=== PATIENT | female | born 1975 | race African-American/Black ===

== ENCOUNTER → 2018-09-14 | Day surgery (SDC) | payer OTHER ==
[2018-09-09 14:44] LABS: BASOPHILS # (AUTO) 0.1 (0.0-0.1); BASOPHILS % 0.5 % (0.0-1.0); EOSINOPHILS # (AUTO) 0.2 (0.0-0.4); EOSINOPHILS % 1.6 % (0.0-6.0); HEMATOCRIT 34.4 % (34.2-44.1); HEMOGLOBIN 11.4 g/dL (12.0-16.0); LYMPHOCYTES # (AUTO) 2.2 (1.0-3.2); LYMPHOCYTES % 20.9 % (18.0-39.1); MEAN CORPUSCULAR HEMOGLOBIN 28.6 pg (28-32); MEAN CORPUSCULAR HGB CONC 33.1 g/dL (31-35); MEAN CORPUSCULAR VOLUME 86.4 fL (81-99); MONOCYTES # (AUTO) 0.5 (0.2-0.8); MONOCYTES % 4.9 % (4.4-11.3); NEUTROPHILS # (AUTO) 7.4 (2.1-6.9); NEUTROPHILS % 71.7 % (38.7-80.0); PLATELET COUNT 441 x10e3/uL (140-360); RED BLOOD COUNT 3.98 x10e6/uL (3.6-5.1); RED CELL DISTRIBUTION WIDTH 15.1 % (11.7-14.4)
[2018-09-09 14:46] LABS: BILIRUBIN,URINE NEGATIVE (NEGATIVE); CLARITY,URINE SL CLOUDY (CLEAR); COLOR,URINE YELLOW (YELLOW); KETONES,URINE NEGATIVE (NEGATIVE); LEUKOCYTE ESTERASE ,URINE TRACE (NEGATIVE); NITRITE,URINE NEGATIVE (NEGATIVE); PROTEIN,URINE DIPSTICK NEGATIVE (NEGATIVE); URINE UROBILINOGEN 0.2 mg/dL (0.2 - 1)
[2018-09-09 14:54] LABS: INR 0.92; PROTHROMBIN TIME 12.8 seconds (11.9-14.5)
[2018-09-09 14:55] LABS: PARTIAL THROMBOPLASTIN TIME 37.1 seconds (23.8-35.5)
[2018-09-09 14:59] LABS: ANION GAP 14.7 mmol/L (8-16); BLOOD UREA NITROGEN 8 mg/dL (7-26); BUN/CREATININE RATIO 11 (6-25); CALCIUM 10.6 mg/dL (8.4-10.2); CARBON DIOXIDE 23 mmol/L (22-29); CHLORIDE 100 mmol/L (98-107); CREATININE, SERUM 0.75 mg/dL (0.57-1.11); EST GLOMERULAR FILTRATION RATE > 60 ML/MIN (60-); GLUCOSE 83 mg/dL (74-118); POTASSIUM 3.7 mmol/L (3.5-5.1); SODIUM 134 mmol/L (136-145)
--- NOTE | 2018-09-09 15:24 | Diagnostic Imaging Report ---
EXAM: CHEST 2 VIEWS, PA and lateral DATE: 09/09/2018 Time stamp on exam: 2:14 PM INDICATION: Preoperative for foot surgery COMPARISON: None FINDINGS: LINES/TUBES: None LUNGS: No consolidations or edema. PLEURA: No effusions or pneumothorax. HEART AND MEDIASTINUM: Normal size and contour. BONES AND SOFT TISSUES: No acute findings. There are bilateral cervical ribs. IMPRESSION: No acute thoracic abnormality. Signed by: Dr. Rommel Garcia DO on 09/09/2018 3:21 PM
[~2018-09-14] MED LIST: BENZONATE; BUPIVACAINE HCL 0.5% INJ 30 ML VIAL INJ ONE; CEFAZOLIN SOD 2 GM/D5W 50ML 50 ML IV ONE; CETIRIZINE HCL10 M1 PO; CYCLOBENZAPRINE10 MG PO; DEXAMETHASONE SOD PHOS INJ 4 MG/ML VIAL ONE; FENTANYL CITRATE/PF 100MCG/2 ML INJ ONE; GABAPENTIN100 MG; HYDROCHLOROTHIA25 MG; HYDROXYZINE HCL25 MG PO; IRON325 M1 PO; LIDOCAINE HCL 1% 30ML-PF VIAL ONE; LIDOCAINE HCL 2% LOCAL INJ 5 ML SDV VIAL INJ ONE; MIDAZOLAM HCL 2 MG/2 ML VIAL ONE; NAPROXEN250 MG PO; NEOMYCIN/POLYMYX/BACITR OINT 0.9 GM PKT ONE; ONDANSETRON HCL INJ 2MG/ML 2ML 2 MG/ML VIAL ONE; POTASSIUM99 M1 PO; PROPOFOL IV EMULSION 10 MG/ML 20 ML VIAL ONE; SEVOFLURANE INHAL SOLN 250 ML PEN BTL ONE; SPRINTEC1 EACH PO; VITAMIN C500 MG PO; [UNRECOGNIZED DRUG - OTHER]
--- OUTSIDE RECORDS SUMMARY | 2018-09-14 12:24 | XMS REPORT ---
Author Author Admin, [employer] Organization [facility] Address [address] [place] [address] Phone Allergies, Adverse Reactions, Alerts Allergy Name Reaction Description Start Date Severity Status Provider CODEINE Nause and rash Moderate Active Ezequiel Caldwell MD Conditions or Problems Problem Name Problem Code Onset Date Status Entry Date Provider Comment Standard Description Annotate Anemia 285.9 Active Lisbet Chow MD Anemia, unspecified Cough 786.2 Active Lisbet Chow MD Cough Chest wall pain 786.52 Active Lisbet Chow MD Painful respiration Urinary tract infection Active Lisbet Chow MD Urinary tract infection, site not specified Allergic rhinitis 477.9 Active Lisbet Chow MD Allergic rhinitis, cause unspecified Upper respiratory infection 465.9 Active Lisbet Chow MD Acute upper respiratory infections of unspecified site Cerumen impaction, bilateral 380.4 Active Lisbet Chow MD Impacted cerumen Neck pain 723.1 Active Lisbet Chow MD Cervicalgia Pharyngitis, acute 462 Active Lisbet Chow MD Acute pharyngitis Pelvic mass 789.30 Active Lisbet Chow MD Abdominal or pelvic swelling, mass, or lump, unspecified site 16.6x16.5x11.6 cm pelvic mass (most likely fibroid) Lower back pain 724.2 Active Lisbet Chow MD Lumbago Acute bronchitis 466.0 Active Lisbet Chow MD Acute bronchitis Leg pain, right 729.5 Active Lisbet Chow MD Pain in limb UTI (urinary tract infection) 599.0 Active Lisbet Chow MD Urinary tract infection, site not specified Annual exam V72.31 Active Lisbet Chow MD Routine gynecological examination Screening for diabetes mellitus V77.1 Active Lisbet Chow MD Screening for diabetes mellitus Screening for lipid disorder V77.91 Active Lisbet Chow MD Screening for lipoid disorders Std screening V74.5 Active Lisbet Chow MD Screening examination for venereal disease 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 Ezequiel Caldwell MD 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, confirmed on xray, has scoliosis convex to right BMI 32.0-32.9 Active Ezequiel Caldwell MD Body Mass Index 32.0-32.9, adult Obesity Active Ezequiel Caldwell MD Obesity, unspecified Hypertension 401.9 Active Lisbet Chow MD Unspecified essential hypertension Lower back pain 724.2 Active Lisbet Chow MD Lumbago Scoliosis 737.30 Active Lisbet Chow MD Scoliosis [and kyphoscoliosis], idiopathic Viral URI Inactive Lisbet Chow MD Viral URI Inactive Lisbet Chow MD Medication List Medication Instructions Start Date Stop Date Generic Name NDC Status Provider Patient Instruction CLARITIN 10 MG ORAL TABLET 1 by mouth every day LORATADINE 68489166890 Active Lisbet Chow MD Active TESSALON PERLES 100 MG ORAL CAPSULE 1 by mouth 3 times a day as needed for cough BENZONATATE 54327406370 Active Lisbet Chow MD Active COLD MULTI-SYMPTOM DAYTIME 10-5-325 MG ORAL TABLET use as directed [id number] 93714811466 Active Lisbet Chow MD Active FLONASE ALLERGY RELIEF 50 MCG/ACT NASAL SUSPENSION 2 sprays each nostril every day FLUTICASONE PROPIONATE 54142033899 Active Lisbet Chow MD Active ZYRTEC ALLERGY 10 MG ORAL TABLET 1 by mouth every day CETIRIZINE HCL 62057309914 Active Lisbet Chow MD Active AUGMENTIN 875-125 MG ORAL TABLET 1 by mouth twice a day AMOXICILLIN- POT CLAVULANATE 12524318201 Active Lisbet Chow MD Active AUGMENTIN 875-125 MG ORAL TABLET 1 by mouth twice a day AMOXICILLIN- POT CLAVULANATE 49355727042 Active Lisbet Chow MD Active PREDNISONE 20 MG ORAL TABLET Take 1 tab By Mouth BID x 2 days; then 1 tab x 4 days PREDNISONE 50275360601 Active Lisbet Chow MD Active FERROUS SULFATE 325 (65 FE) MG ORAL TABLET DELAYED RELEASE 1 by mouth daily FERROUS SULFATE 77511526020 Active Lisbet Chow MD Active AZITHROMYCIN 250 MG ORAL TABLET 2 tablets by mouth on day one then one tablet by mouth each day for a total of 5 days AZITHROMYCIN 25680303727 Active Lisbet Chow MD Active FLOMAX 0.4 MG ORAL CAPSULE 1 by mouth every day TAMSULOSIN HCL 27241213592 Active Lisbet Chow MD Active TRAMADOL HCL 50 MG ORAL TABLET 1 tablets by mouth 3 times a day as needed for pain TRAMADOL HCL 02203047104 Active Lisbet Chow MD Active GABAPENTIN 100 MG ORAL CAPSULE 1 tab By Mouth Three Times a Day prn GABAPENTIN 85411726944 Jack Chow MD Active AZITHROMYCIN 250 MG ORAL TABLET 2 tablets by mouth on day one then one tablet by mouth each day for a total of 5 days AZITHROMYCIN 87522798106 Jack Chow MD Active SULFAMETHOXAZOLE-TRIMETHOPRIM 800-160 MG ORAL TABLET 1 tab By Mouth bid SULFAMETHOXAZOLE-TRIMETHOPRIM 78694119328 Active Lisbet Chow MD Active CYCLOBENZAPRINE HCL 10 MG ORAL TABLET 1 By Mouth three times a day as needed for muscle spasm CYCLOBENZAPRINE HCL 87446466448 Active Lisbet Chow MD Active HYDROCHLOROTHIAZIDE 25 MG ORAL TABLET 1 by mouth every day HYDROCHLOROTHIAZIDE 18899249533 Jack Lorenzanaome MD Active NAPROXEN 500 MG ORAL TABLET 1 by mouth twice a day as needed for pain and inflammation NAPROXEN 41090742670 Active Lisbet Chow MD Active AUGMENTIN 875-125 MG ORAL TABLET 1 by mouth twice a day AUGMENTIN 875-125 MG ORAL TABLET 173867 AMOXICILLIN-POT CLAVULANATE Inactive AUGMENTIN 875-125 MG ORAL TABLET 1 by mouth twice a day AMOXICILLIN-POT CLAVULANATE 75254126894 No Longer Active Lisbet Chow MD Active Vital Signs Date Name Value Unit Range Description blood pressure, diastolic 85 mm[Hg] BP li blood pressure, systolic 132 mm[Hg] BP sys height E&M 62 [in_us] Bdy height pulse rate E&M 88 /min Heart rate respiratory rate E&M 20 /min Resp rate temperature E&M 98.2 [degF] Body temperature weight E&M 192 [lb_av] Weight Measured blood pressure, diastolic 80 mm[Hg] BP li blood pressure, systolic 120 mm[Hg] BP sys height E&M 62 [in_us] Bdy height pulse rate E&M 88 /min Heart rate respiratory rate E&M 16 /min Resp rate temperature E&M 98.3 [degF] Body temperature weight E&M 195.60 [lb_av] Weight Measured blood pressure, diastolic 77 mm[Hg] BP li blood pressure, systolic 122 mm[Hg] BP sys height E&M 62 [in_us] Bdy height pulse rate E&M 90 /min Heart rate respiratory rate E&M 21 /min Resp rate temperature E&M 98 [degF] Body temperature weight E&M 198.25 [lb_av] Weight Measured height E&M 62 [in_us] Bdy height blood pressure, diastolic 67 mm[Hg] BP li blood pressure, systolic 125 mm[Hg] BP sys height E&M 62 [in_us] Bdy height pulse rate E&M 82 /min Heart rate respiratory rate E&M 21 /min Resp rate temperature E&M 98.2 [degF] Body temperature weight E&M 195 [lb_av] Weight Measured blood pressure, diastolic 82 mm[Hg] BP li blood pressure, systolic 137 mm[Hg] BP sys height E&M 62 [in_us] Bdy height pulse rate E&M 87 /min Heart rate respiratory rate E&M 15 /min Resp rate temperature E&M 98.3 [degF] Body temperature weight E&M 190.20 [lb_av] Weight Measured blood pressure, diastolic 79 mm[Hg] BP li blood pressure, systolic 121 mm[Hg] BP sys height E&M 62 [in_us] Bdy height pulse rate E&M 79 /min Heart rate respiratory rate E&M 18 /min Resp rate temperature E&M 98.6 [degF] Body temperature weight E&M 192.20 [lb_av] Weight Measured blood pressure, diastolic 77 mm[Hg] BP li blood pressure, systolic 121 mm[Hg] BP sys height E&M 62 [in_us] Bdy height pulse rate E&M 82 /min Heart rate respiratory rate E&M 20 /min Resp rate temperature E&M 98.4 [degF] Body temperature weight E&M 192.20 [lb_av] Weight Measured blood pressure, diastolic 65 mm[Hg] BP li blood pressure, systolic 113 mm[Hg] BP sys height E&M 62 [in_us] Bdy height pulse rate E&M 72 /min Heart rate respiratory rate E&M 18 /min Resp rate temperature E&M 98.2 [degF] Body temperature weight E&M 190.20 [lb_av] Weight Measured blood pressure, diastolic 82 mm[Hg] BP li blood pressure, systolic 125 mm[Hg] BP sys height E&M 62 [in_us] Bdy height pulse rate E&M 78 /min Heart rate respiratory rate E&M 19 /min Resp rate temperature E&M 97.9 [degF] Body temperature weight E&M 188 [lb_av] Weight Measured Diagnostic Results Date Name Value Unit Range Description Lab Report: CBC With Differential/Platelet, Comp. Metabolic Panel (14), ... - Urinalysis mucus on urinalysis Present Not Estab. Lab Report: TSH+Free T4, CBC With Differential/Platelet, Comp. Metabolic ... - Chemistry thyroid stimulating hormone, serum 2.600 u[iU]/mL 0.450-4.500 Lab Report: CBC With Differential/Platelet, Comp. Metabolic Panel (14), ... - Urinalysis WBC urine on microscopy 6-10 /hpf {Cells}/[HPF] 0 - 5 Lab Report: CBC With Differential/Platelet, Comp. Metabolic Panel (14), ... - Chemistry very low density lipoproteins 22 mg/dL 5-40 Lab Report: CBC With Differential/Platelet, Comp. Metabolic Panel (14), ... - Urinalysis epithelial cells, urine >10 /[LPF] 0 - 10 Lab Report: CBC With Differential/Platelet, Basic Metabolic Panel (8) - Chemistry chloride, serum 100 mmol/L 96-106 urea nitrogen, blood 10 mg/dL 6-24 Office Visit: Acute Visit Rm4 - Urinalysis leukocyte esterase, urine, by dipstick negative Lab Report: CBC With Differential/Platelet, Basic Metabolic Panel (8) - Hematology mean corpuscular hemoglobin concentration, RBC 33.2 G/DL % 31.5-35.7 erythrocyte (RBC) count 4.06 X10E6/UL 10*6/mm3 3.77-5.28 Office Visit: Acute Visit Rm4 - Urinalysis nitrite, urine, semiquantitative negative urine color yellow Lab Report: CBC With Differential/Platelet, Basic Metabolic Panel (8) - Chemistry Absolute Neutrophils 6.0 X10E3/UL 10*3/uL 1.4-7.0 Office Visit: Acute Visit 4 - Urinalysis bilirubin, urine negative Lab Report: CBC With Differential/Platelet, Comp. Metabolic Panel (14), ... - Chemistry LDL cholesterol, serum 109 mg/dL 0-99 Lab Report: CBC With Differential/Platelet, Basic Metabolic Panel (8) - Chemistry urea nitrogen/creatinine ratio, serum 12 9-23 Lab Report: CBC With Differential/Platelet, Basic Metabolic Panel (8) - Hematology mean corpuscular volume, RBC 87 fL 79-97 Lab Report: CBC With Differential/Platelet, Comp. Metabolic Panel (14), ... - Chemistry HDL cholesterol, serum 64 mg/dL >39 Lab Report: CBC With Differential/Platelet, Basic Metabolic Panel (8) - Hematology monocytes as percent of blood leukocytes 5 % Not Estab. Lab Report: CBC With Differential/Platelet, Basic Metabolic Panel (8) - Chemistry creatinine, serum 0.83 mg/dL 0.57-1.00 Lab Report: TSH+Free T4, CBC With Differential/Platelet, Comp. Metabolic ... - Chemistry albumin/globulin ratio, serum 1.2 1.2-2.2 Lab Report: CBC With Differential/Platelet, Comp. Metabolic Panel (14), ... - Chemistry cholesterol, serum 195 mg/dL 100-199 Lab Report: TSH+Free T4, CBC With Differential/Platelet, Comp. Metabolic ... - Chemistry bilirubin, serum, total 0.4 mg/dL 0.0-1.2 Lab Report: CBC With Differential/Platelet, Basic Metabolic Panel (8) - Hematology Eosinophil Absolute Count 0.3 X10E3/UL 10*3/uL 0.0-0.4 Office Visit: Acute Visit Rm4 - Urinalysis appearance, urine clear blood in urine (hemoglobin) by dipstick negative Lab Report: TSH+Free T4, CBC With Differential/Platelet, Comp. Metabolic ... - Chemistry aspartate aminotransferase (SGOT), serum 19 U/L 0-40 Lab Report: CBC With Differential/Platelet, Basic Metabolic Panel (8) - Hematology red blood cell distribution width 14.6 % 12.3-15.4 Lab Report: CBC With Differential/Platelet, Comp. Metabolic Panel (14), ... - Urinalysis urinalysis, microscopic examination See below: Lab Report: CBC With Differential/Platelet, Basic Metabolic Panel (8) - Hematology leukocyte count, blood 9.3 X10E3/UL 10*3/mm3 3.4-10.8 Office Visit: Acute Visit 4 - Urinalysis pH, urine, semiquantitative 5.5 Lab Report: CBC With Differential/Platelet, Basic Metabolic Panel (8) - Chemistry potassium, serum 4.0 mmol/L 3.5-5.2 immature granulocytes, percentage of total cells, blood 0 % Not Estab. Lab Report: TSH+Free T4, CBC With Differential/Platelet, Comp. Metabolic ... - Chemistry albumin, serum 4.0 g/dL 3.5-5.5 Lab Report: CBC With Differential/Platelet, Basic Metabolic Panel (8) - Hematology lymphocyte count, blood, automated 2.5 X10E3/UL 10*3/mm3 0.7-3.1 hematocrit, blood 35.2 % 34.0-46.6 Lab Report: CBC With Differential/Platelet, Basic Metabolic Panel (8) - Chemistry sodium, serum 140 mmol/L 134-144 Lab Report: Urine Culture, Routine, Result - Urinalysis urine culture LESS Lab Report: CBC With Differential/Platelet, Basic Metabolic Panel (8) - Hematology neutrophils as percent of blood leukocytes 65 % Not Estab. basophils as percent of blood leukocytes 1 % Not Estab. Lab Report: CBC With Differential/Platelet, Comp. Metabolic Panel (14), ... - Chemistry specific gravity, body fluid 1.022 1.005-1.030 Office Visit: Acute Visit Rm4 - Serology influenza virus A antigen negative Office Visit: Acute Visit Rm4 - Urinalysis protein, urine, semiquantitative (dipstick) negative Lab Report: CBC With Differential/Platelet, Comp. Metabolic Panel (14), ... - Chemistry RBC, Urine >30 /hpf /[HPF] 0 - 2 Lab Report: CBC With Differential/Platelet, Basic Metabolic Panel (8) - Chemistry carbon dioxide, venous blood 22 mmol/L 20-29 Lab Report: CBC With Differential/Platelet, Comp. Metabolic Panel (14), ... - Chemistry nitrate, urine Negative Negative triglyceride, serum, fasting 110 mg/dL 0-149 Lab Report: CBC With Differential/Platelet, Basic Metabolic Panel (8) - Chemistry calcium, serum 9.2 mg/dL 8.7-10.2 Lab Report: TSH+Free T4, CBC With Differential/Platelet, Comp. Metabolic ... - Chemistry alanine aminotransferase (SGPT), serum 24 U/L 0-32 Lab Report: CBC With Differential/Platelet, Basic Metabolic Panel (8) - Hematology mean corpuscular hemoglobin, RBC 28.8 pg 26.6-33.0 Office Visit: Acute Visit Rm4 - Urinalysis specific gravity, urine 1.015 Lab Report: CBC With Differential/Platelet, Comp. Metabolic Panel (14), ... - Urinalysis bacteria, urine microscopy Few None seen/Few Lab Report: TSH+Free T4, CBC With Differential/Platelet, Comp. Metabolic ... - Chemistry protein, total, serum 7.3 g/dL 6.0-8.5 alkaline phosphatase, serum 103 U/L 39-117 Lab Report: CBC With Differential/Platelet, Basic Metabolic Panel (8) - Hematology hemoglobin, blood 11.7 g/dL 11.1-15.9 Office Visit: Acute Visit Rm4 - Lab Microbial identification kit, rapid strep method negative Lab Report: CBC With Differential/Platelet, Basic Metabolic Panel (8) - Hematology lymphocytes as percent of blood leukocytes 26 % Not Estab. Lab Report: CBC With Differential/Platelet, Comp. Metabolic Panel (14), ... - Chemistry hemoglobin A1C, blood, as % of total hemoglobin 5.1 % 4.8-5.6 Office Visit: Acute Visit 4 - Urinalysis glucose, urine, semiquantitative negative Lab Report: CBC With Differential/Platelet, Basic Metabolic Panel (8) - Genetics/fertility eGFR if 102 mL/min/1.73m2 >59 Lab Report: CBC With Differential/Platelet, Basic Metabolic Panel (8) - Hematology basophil count, absolute 0.1 x10E3/uL 0.0-0.2 Lab Report: TSH+Free T4, CBC With Differential/Platelet, Comp. Metabolic ... - Chemistry thyroxine, serum, free 1.28 ng/dL 0.82-1.77 globulin, serum 3.3 1.5-4.5 Lab Report: CBC With Differential/Platelet, Basic Metabolic Panel (8) - Chemistry Estimated Glomerular Filtration Rate (calc) 88 mL/min/1.73m2 >59 Lab Report: Beta Strep Gp A Culture - Microbiology beta streptococcus screen, throat Negative Lab Report: CBC With Differential/Platelet, Comp. Metabolic Panel (14), ... - Basic Occult Blood, urine 3+ Negative Lab Report: CBC With Differential/Platelet, Basic Metabolic Panel (8) - Hematology eosinophils as percent of blood leukocytes 3 % Not Estab. Lab Report: CBC With Differential/Platelet, Basic Metabolic Panel (8) - Chemistry blood glucose, random 83 mg/dL 65-99 Office Visit: Acute Visit Rm4 - Urinalysis urobilinogen, urine, semiquantitative (dipstick) 0.2 Lab Report: CBC With Differential/Platelet, Basic Metabolic Panel (8) - Hematology monocyte count, blood, automated 0.5 X10E3/UL 10*3/uL 0.1-0.9 platelet count 439 X10E3/UL 10*3/mm3 150-379 Office Visit: Acute Visit Rm4 - Urinalysis ketones, urine, by test strip negative Office Visit: Acute Visit Rm4 - Lab influenza B virus antigen negative Encounters Date Encounter Provider Code Facility 19:19:45 CDT Est Patient Exp Problem - 14505 Lisbet Chow MD CPT-97543 [facility] 16:07:45 [employer]IOR [employer] Est Patient Detailed - 41936 Lisbet Chow MD CPT-54341 [facility] 21:51:55 SENIOR DIRECT[employer] Ofc Vst, Est Level III Lisbet Chow MD [facility]-95378 [facility] 21:49:47 SENIOR DIRECT[employer] Ofc Vst, Est Level III Lisbet Chow MD CPT-56788 [facility] 13:54:17 S[employer]IOR DIRECT[employer] Est Patient Detailed - 05287 Lisbet Chow MD CPT-55078 [facility] 17:04:14 CDT Est Patient Detailed - 56151 Lisbet Chow MD CPT-28807 [facility] 13:24:08 CDT Est Patient Detailed - 86816 Lisbet Chow MD CPT-37994 [facility] 09:27:15 CDT Est Patient Detailed - 82955 Lisbet Chow MD CPT-72935 [facility] 14:05:41 CDT Est Patient Detailed - 90399 Lisbet Chow MD CPT-49469 [facility] 12:46:27 CDT Est Patient Exp Problem - 18464 Lisbet Chow MD CPT-23639 [facility] 14:22:32 SENIOR DIRECT[employer] Est Patient Detailed - 29260 Lisbet Chow MD CPT-35461 [facility] 17:41:54 CDT Est Patient Exp Problem - 64112 Lisbet Chow MD CPT-31620 [facility] 15:21:11 CDT Est Patient Exp Problem - 59345 Ezequiel Caldwell MD CPT-52447 [facility] 16:07:51 CDT New Patient Exp Problem - 05077 Lisbet Chow MD CPT-30232 [facility] Procedures Code Procedure Name Date Entry Date Standard Description CPT-44254 Rapid Strep - In House 13:54:17 S[employer] CPT-87058 Rapid Flu - In House 13:54:17 S[employer]IOR [employer] CPT-08675 IM or SQ Injection 17:04:14 CDT CPT-J1885 Injection, ketorolac tromethamine (toradol), per 15 mg 17:04:13 CDT CPT-45539 IM or SQ Injection 17:04:13 CDT CPT-J1100 Injection, dexamethasone sodium phosphate, 1mg 17:04:13 CDT CPT-14323 IM or SQ Injection 13:24:08 CDT CPT-J1885 Injection, ketorolac tromethamine (toradol), per 15 mg 13:24:08 CDT CPT-03690 Ear Irrigation 09:27:15 CDT CPT-51752 IM or SQ Injection 16:43:44 CDT CPT-J1100 Injection, dexamethasone sodium phosphate, 1mg 16:43:44 CDT CPT-26871 Urinalysis - Dip only - In House 16:43:44 CDT CPT-49529 Rapid Strep - In House 16:43:40 CDT CPT-91075 Est Patient Well Exam (18 - 39 Yrs) - 34170 16:44:31 CDT
--- OUTSIDE RECORDS SUMMARY | 2018-09-14 12:24 | XMS REPORT ---
Author Author [facility] Address Unknown Phone Unavailable Care Team Providers Care Head Piece Assembler Name Role Phone Charline NEGRO Unavailable Unavailable Problems This patient has no known problems. Allergies, Adverse Reactions, Alerts This patient has no known allergies or adverse reactions. Medications This patient has no known medications. Results Test Description Test Time Test Comments Text Results Atomic Results Result Comments CHEST 2 VIEWS 2018-09-09 15:19:00 [place] [address] Patient Name: REX LOCKE MR #: [id number] : 1975 Age/Sex: 42/F Req #: [id number] Adm Physician: Ordered by: KWAKU NEGRO DPM Report #: [id number] Location: OR Room/Bed: Procedure: [id number] DX/CHEST 2 VIEWS Exam Date: 09/09/18 Exam Time: 1414 REPORT STATUS: Signed EXAM: CHEST 2 VIEWS, PA and lateral DATE: 09/09/2018 Time s tamp on exam: 2:14 PM INDICATION: Preoperative for foot surgery COMPARISON: None FINDINGS: LINES/TUBES: None LUNGS: No consolidations or edema. PLEURA: No effusions or pneumothorax. HEART AND MEDIASTINUM: Normal size and contour. BONES AND SOFT TISSUES: No acute findings. There are bilateral cervical ribs. IMPRESSION: No acute thoracic abnormality. Signed by: Dr. Lisa Garcia DO on 09/09/2018 3:21 PM Dictated By: LISA GARCIA DO 1521 Transcribed By: NAVI on 09/09/18 1521 COPY TO: KWAKU NEGRO DPM
--- OUTSIDE RECORDS SUMMARY | 2018-09-14 12:24 | XMS REPORT | Clinical Summary ---
Author Author [facility] Address Unknown Phone Unavailable Care Team Providers Care Single Pointed Operator Name Role Phone Asked, No Pcp PCP Unavailable Allergies Not on File Medications Not on file Active Problems Not on file Social History Date Tobacco Use Types Packs/Day Years Used Never Assessed Sex Assigned at Date Recorded Not on file Industry Job Start Date Occupation Not on file Not on file Not on file Travel End Travel History Travel Start No recent travel history available. Last Filed Vital Signs Not on file Plan of Treatment Health Maintenance Due Date Last Done Comments INFLUENZA VACCINE 11/24/2018 Results Not on fileafter 09/13/2017 Insurance Type Payer Benefit Subscriber ID Effective Phone Address Plan / Dates Group HMO [employer] xxxxxxxxx [id number] [employer] Advance Directives Patient has advance care planning documents on file. For more information, rafita aburto contact: Cristopher Shaw [address] [place] [id number]
--- NOTE | 2018-09-14 16:08 | Diagnostic Imaging Report ---
Exam: Right foot 3 views History: Status post hammertoe repair fourth digit Comparison: None. Findings: See impression: Impression: Postsurgical changes related to resection of the distal margins of the fourth and fifth proximal phalanges. Expected soft tissue swelling and subcutaneous gas. Signed by: Dr. Demetrius Adams M.D. on 09/14/2018 4:05 PM
[2018-09-14 16:30] VITALS: BP 140/75
--- NOTE | 2018-09-14 19:05 | Operative Report ---
DATE OF PROCEDURE: 09/14/2018 SURGEON: Juan Francisco Watts DPM TIMBER PACKER: None. PREOPERATIVE DIAGNOSIS: Painful hammertoe, fourth toe, right foot. POSTOPERATIVE DIAGNOSIS: Painful hammertoe, fourth toe, right foot. PROCEDURE PERFORMED: Hammertoe correction to the fourth toe of the right foot. ANESTHESIA: General with a total of 10 mL of 1:1 mix of 1% lidocaine plain and 0.5% Marcaine plain. PATHOLOGY: None. ESTIMATED BLOOD LOSS: None. COMPLICATIONS: None. INDICATIONS FOR PROCEDURE: The patient is a 42-year-old female with painful bone protruding to the fourth toe, which is slightly contracted. The patient continued to have pain in spite of exhausting all conservative treatments with padding to that area and wider shoes, the patient continued to have pain. Therefore, at this point, this warranted surgical intervention with resection of the head of the proximal phalanx and correction of the hammertoe. At this point, all the risks and complications of the surgery were explained to the patient, including infection, pain, swelling, numbness, bleeding, delayed healing, nonhealing, recurrence, stiffness, floppy toe, neuritis, and need for further surgery. At this time, there were no guarantees implied or given. Therefore, the above stated procedure was performed. NARRATIVE OF PROCEDURE: Preoperatively, the patient was identified as Celestina Blue. The right foot was marked and 30 minutes prior to the surgery, the patient was administered 2 g of Ancef. She was taken to the OR and placed on the OR table in a supine position. After a successful general anesthetic, a right ankle tourniquet was applied. Appropriate time-out was performed with identification of the patient and procedure. Then, the right fourth toe was infiltrated at the ray with 10 mL of 1:1 mix of 1% lidocaine plain and 0.5% Marcaine plain. The right foot was then prepped and draped in the usual sterile manner. The right foot was then elevated and Esmarch was utilized to accentuate the blood. Tourniquet was now inflated to 250 mmHg. Attention was now directed to dorsal aspect of the right fourth toe in which a dorsal linear incision was made overlying the proximal interphalangeal joint. Utilizing a 15 blade, the incision was now deepened down to the level of subcutaneous tissue being careful to identify and retract all vital neurovascular structures and to cauterize all vessels as needed. A transverse tenotomy and capsulotomy were performed. The collateral ligaments both medially and laterally were resected and extensor tendon was now reflected most proximally. At this time, the patient's bones were extremely tiny. The extensor digitorum brevis tendon was now resected and was now reflected proximally to the point where the head of the proximal phalanx was now brought on to the operative field. At this time, the head of the proximal phalanx was resected with an oscillating bone saw and was passed off the operative field. The bone stump was now smoothed to a smooth contour with a joseph. After ensuring that the entire area was nice and smooth, the mini C-arm was utilized to evaluate. At this time, the resection was noted to be excellent and the area was scored down nice and smooth. The wound was then irrigated with copious amounts of normal saline and after complete irrigation, the tendon was then reapproximated with 4-0 Vicryl in a simple interrupted stitch. For skin closure, 4-0 nylon was utilized in a simple interrupted stitch. A Betadine-soaked adaptic and guaze were then applied to the right foot along with a dry sterile compressive dressing. The tourniquet was released and at this time, the capillary refill time was noted to all digits to 1 through 5 of the right foot. The patient did tolerate the procedure well and left the OR to the recovery room with vital signs stable and neurovascular status back to preoperative condition. The patient will be placed in a postoperative shoe and will be able to weightbear as tolerated and the patient will follow up with me in my office on Wednesday. KARINA Cespedes/SARAH /[id number]
== END | disposition home or self-care (01) ==
LOC: OR 11:55
PROVIDERS: ATTEND Podiatrist
DX: M20.41 Other hammer toe(s) (acquired), right foot (principal); I10 Essential (primary) hypertension; Z01.810 Encounter for preprocedural cardiovascular examination; Z01.812 Encounter for preprocedural laboratory examination; Z01.818 Encounter for other preprocedural examination
CPT/HCPCS: 28285; 36415; 71046; 73630; 80048; 81003; 81025; 85025; 85610; 85730; 93005; J0690; J1100; J2001 ×2; J2250; J2405; J2704

== ENCOUNTER → 2019-05-24 | Day surgery (SDC) | payer OTHER ==
[2019-05-15 11:15] LABS: ANION GAP 15.3 mmol/L (8-16); BLOOD UREA NITROGEN 7 mg/dL (7-26); BUN/CREATININE RATIO 9 (6-25); CALCIUM 9.7 mg/dL (8.4-10.2); CARBON DIOXIDE 27 mmol/L (22-29); CHLORIDE 98 mmol/L (98-107); CREATININE, SERUM 0.77 mg/dL (0.57-1.11); EST GLOMERULAR FILTRATION RATE > 60 ML/MIN (60-); GLUCOSE 97 mg/dL (74-118); POTASSIUM 3.3 mmol/L (3.5-5.1); SODIUM 137 mmol/L (136-145)
[~2019-05-24] MED LIST changes: +ACETAMINOPHEN 1000 MG/100 ML IV ONE; +ACID REDUCER C1 EACH PO; +CALCET TABLET1 EACH PO; -CEFAZOLIN SOD 2 GM/D5W 50ML 50 ML IV ONE; +CLINDAMYCIN PHOS 900MG/ 50ML 50 ML IV ONE; +FERROUS SULFAT325 MG PO; +FLUTICASONE PRO16 GM; +KETOROLAC TROMETHAMINE 30 MG/ML VIAL ONE; -LIDOCAINE HCL 1% 30ML-PF VIAL ONE; +LIDOCAINE HCL 1% LOCAL INJ 20 ML VIAL ONE; +LORATADINE10 MG PO; -NEOMYCIN/POLYMYX/BACITR OINT 0.9 GM PKT ONE; +VITAMIN C WITH500 MG PO
--- OUTSIDE RECORDS SUMMARY | 2019-05-24 13:26 | XMS REPORT ---
Author Author Admin, [place] Organization Unknown Address Unknown Phone Unavailable PROBLEMS Condition Status Date Provider Notes Abdominal pain active Lisbet Geraldo Viral URI completed - Lisbet Geraldo Cerumen impaction, left active Lisbet Geraldo Cough active Lisbet Geraldo Anemia active Lisbet Geraldo Chest wall pain active Lisbet Geraldo Viral URI completed - Lisbet Geraldo Urinary tract infection active Lisbet Geraldo Allergic rhinitis active Lisbet Geraldo Upper respiratory infection active Lisbet Geraldo Neck pain active Lisbet Geraldo Cerumen impaction, bilateral active Lisbet Geraldo Pharyngitis, acute active Lisbet Geraldo Pelvic mass active Lisbet Geraldo 16.6x16.5x11.6 cm pelvic mass (most likely fibroid) Lower back pain active Lisbet Geraldo Leg pain, right active Lisbet Geraldo Acute bronchitis active Lisbet Geraldo UTI (urinary tract infection) active Lisbet Geraldo Screening for diabetes mellitus active Lisbet Geraldo Screening for lipid disorder active Lisbet Geraldo Std screening active Ilsbet Geraldo Annual exam active Lisbet Geraldo Arthritis of spine active Rakan Javierliliamseema thorasic, confirmed on xray, has scoliosis convex to right BMI 32.0-32.9 active Rakan Hampton Obesity active Rakan Hampton Hypertension active Lisbet Geraldo Scoliosis active Lisbet Geraldo Lower back pain active Lisbet Geraldo ENCOUNTERS Date Type Provider Location Encounter Diagnosis - Ambulatory Encounter Lisbet Geraldo Lisbet Geraldo [facility] UNK - Ambulatory Encounter Lisbet Geraldo Lisbet Geraldo [facility] UNK - Ambulatory Encounter Lisbet Geraldo Lisbet Geraldo [facility] UNK - Ambulatory Encounter [facility] F[facility] Status [facility] - Ambulatory Encounter Lisbet Geraldo Lisbet Geraldo [facility] UNK - Ambulatory Encounter Lisbet Geraldo Lisbet Geraldo [facility] UNK - Ambulatory Encounter Lisbet Geraldo Lisbet Lorenzanaome Elizabeth Peng [facility] Abdominal pain - Ambulatory Encounter Lisbet Geraldo Lisbet Geraldo [facility] UNK - Ambulatory Encounter Lisbet Geraldo Lisbet Geraldo Jenise Conde [facility] UNK - [facility]ulatory [facility] - [facility] Encounter Lisbet Geraldo Lisbet Lorenzanaaidee Retana [facility] UNK - Ambulatory Encounter Lisbet Geraldo Lisbet Geraldo [facility] UNK - Ambulatory Encounter Lisbet Geraldo Lisbet Geraldo Maria Luisa Cantrell [facility] UNK - Ambulatory Encounter Lisbet Geraldo Lisbet Geraldo [facility] UNK - Ambulatory Encounter Lisbet Geraldo Lisbet Farmer [facility] Cerumen impaction, leftViral URI - Ambulatory Encounter Lisbet Geraldo Frausto Geraldo [facility] UNK - Ambulatory Encounter Lisbet Geraldo Frausto Geraldo [facility] UNK - Ambulatory Encounter Lisbet Geraldo Frausto Geraldo [facility] UNK - Ambulatory Encounter Lisbet Geraldo Haider Combsshane Burden Oliveros [facility] AnemiaCough - Ambulatory Encounter Lisbet Geraldo Lisbet Geraldo [facility] UNK - Ambulatory Encounter Yolanda Morgan [facility] UNK - Ambulatory Encounter Yolanda Morgan [facility] UNK - Ambulatory Encounter Lisbet Geraldo Frausto Geraldo [facility] UNK - Ambulatory Encounter Lisbet Geraldo Chow Dixie Dunaway Yolanda Morgan [facility] Chest wall pain - Ambulatory Encounter Lisbet Geraldo Frausto Geraldo [facility] UNK - Ambulatory Encounter Lisbet Geraldo Frausto Geraldo [facility] UNK - Ambulatory [facility] - [facility] Lisbet Geraldo Frausto Geraldo [facility] UNK - Ambulatory Encounter Lisbet Geraldo Frausto Geraldo [facility] UNK - Ambulatory Encounter [facility] Allergic rhinitisUrinary tract infectionViral URI - Ambulatory Encounter Lisbet Geraldo Frausto Geraldo [facility] UNK - Ambulatory Encounter Lisbet Geraldo Diego [facility] UNK - Ambulatory Encounter Lisbet Geraldo Chow [facility] UNK - Ambulatory Encounter Lisbet Geraldo Chow Lizzie Haider Combs [facility] Upper respiratory infection - Ambulatory Encounter Fax Status [facility] - Ambulatory Encounter Fax Status [facility] UN[facility] - Ambulatory Encounter Fax Status [facility] UNK - Ambulatory Encounter Fax Status [facility] UNK - Ambulatory Encounter Fax Status [facility] UNK - Ambulatory Encounter Fax Status [facility] UNK - Ambulatory Encounter Lisbet Geraldo Chow [facility] UNK - Ambulatory Encounter Lisbet Geraldo Chow Clive Peng [facility] UNK - Ambulatory Encounter Lisbet Geraldo Chow [facility] UNK - Ambulatory Encounter Lisbet Geraldo Chow [facility] UNK - Ambulatory Encounter Lisbet Geraldo Chow Vick Latif [facility] UNK - Ambulatory Encounter Lisbet Geraldo Chow [facility] UNK - Ambulatory Encounter Lisbet Geraldo Chow [facility] UNK - Ambulatory Encounter Lisbet Geraldo Chow [facility] UNK - Ambulatory Encounter Lisbet Geraldo Chow [facility] UNK - Ambulatory Encounter Lisbet Geraldo Chow [facility] UNK - Ambulatory Encounter Lisbet Geraldo Chow Vick Turner Ginette Trent [facility] Cerumen impaction, bilateralNeck pain - Ambulatory Encounter Marquise A Lewis [facility] UNK - Ambulatory Encounter Lisbet Geraldo Chow [facility] UNK - Ambulatory Encounter Lisbet Geraldo Chow [facility] UNK - Ambulatory Encounter Lisbet Geraldo Chow [facility] UNK - Ambulatory Encounter Lisbet Chow Lizzie Latif [facility] Pharyngitis, acute - Ambulatory Encounter Fax Status [facility] UNK - Ambulatory Encounter Fax Status [facility] UNK - Ambulatory Encounter Fax Status [facility] UNK - Ambulatory Encounter Lisbet Chow Clive Jeffries [facility] Pelvic mass - Ambulatory Encounter Fax Status [facility] UNK - Ambulatory Encounter Fax Status [facility] UNK - Ambulatory Encounter Fax Status [facility] UNK - Ambulatory Encounter Lisbet Geraldo Chow [facility] UNK - Ambulatory Encounter Lisbet Geraldo [facility] - [facility] Encounter Lisbet Geraldo Chow [facility] UNK - Ambulatory Encounter [facility] - [facility] - Ambulatory Encounter Fax Status [facility] UNK - Ambulatory Encounter Lizzie Frausto Geraldo Lisbet Geraldo Mina Conde [facility] UNK - Ambulatory Encounter Scot Ladd [facility] UNK - Ambulatory Encounter Scot Ladd [facility] UNK - Ambulatory Encounter Lisbet Geraldo Chow [facility] UNK - Ambulatory Encounter Lisbet Lorenzanaome Lisbet Geraldo Roslyn Jacobs [facility] Lower back pain - Ambulatory Encounter Carolina Tomas [facility] UNK - Ambulatory Encounter Carolina Tomas [facility] - Ambulatory Encounter Carolina Tomas MedAdherence [facility] UNK - Ambulatory Encounter Carolina Tomas [facility] - Ambulatory Encounter Carolina Tomas MedAdherence [facility] UNK - Ambulatory Encounter Carolina Tomas [facility] - Ambulatory Encounter Lisbet Lorenzanaome Lisbet Geraldo [facility] UNK - Ambulatory Encounter Lisbet Lorenzanaome Lisbet Geraldo [facility] UNK - Ambulatory Encounter Lisbet Geraldo Chow [facility] UNK - Ambulatory Encounter Lisbet Geraldo Lisbet Geraldo Meliza Jacobs [facility] Acute bronchitisLeg pain, right - Ambulatory Encounter [facility] - [facility]ulatory Encounter Carolina Tomas [facility] UNK - Ambulatory Encounter Carolina [facility] - [facility] UNK - Ambulatory Encounter Vick Turner [facility] UNK - Ambulatory Encounter Lisbet Geraldo Lisbet Geraldo [facility] - Ambulatory Encounter Lisbet Geraldo Lisbet Geraldo [facility] UNK - Ambulatory Encounter Lisbet Geraldo Lisbet Geraldo [facility] UNK - Ambulatory Encounter Lisbet Geraldo Lisbet Geraldo Ellen Walters [facility] UTI (urinary tract infection) - Ambulatory Encounter Lisbet Geraldo Lisbet Geraldo [facility] UNK - Ambulatory Encounter Lisbet Geraldo Lisbet Geraldo [facility] - Ambulatory Encounter Scot Martinezillo [facility] UNK - Ambulatory Encounter Scot Ladd [facility] UNK - Ambulatory Encounter Lisbet Geraldo Lisbet Geraldo [facility] UNK - Ambulatory Encounter Lisbet Geraldo Lisbet Geraldo Jenna Navarro [facility] Annual examStd screeningScreening for lipid disorderScreening for diabetes mellitus - Ambulatory Encounter Rakan Hampton [facility] UNK - Ambulatory Encounter Rakan Hampton [facility] UNK - Ambulatory Encounter [facility]equiel [facility] ObesityBMI 32.0-32.9Arthritis of spine - Ambulatory Encounter Nahedkeyona Dalton [facility] UNK - Ambulatory Encounter Nahedkeyona Dalton [facility] UNK - Ambulatory Encounter Elaina Alejandro [facility] UNK - Ambulatory Encounter Dixie Ray [facility] UNK - Ambulatory Encounter Rakan Hampton [facility] UNK - Ambulatory Encounter Lisbet Chow [facility] UNK - Ambulatory Encounter Elaina Jacobs [facility] Lower back painScoliosisHypertension - Ambulatory Encounter Nahed Dalton [facility] UNK - Ambulatory Encounter Nahed Dalton [facility] UNK - Ambulatory Encounter zEequiel Caldwell [facility] UNK VITAL SIGNS No Information Available ALLERGIES Allergy Name Onset Date Reaction Criticality Status CODEINE Nause and rash Unable to assess criticality active REASON FOR REFERRAL Start Date - End Date Service - CT Scan - X-RAY RESULTS Date Observation Value Provider Reference Range Interpretation Location alanine aminotransferase (SGPT), serum 17 1/L [facility] 0-32 " aspartate aminotransferase (SGOT), serum 17 1/L [facility] 0-40 " alkaline phosphatase, serum 120 1/L [facility] 39-117 High " bilirubin, serum, total 0.6 mg/dL [facility] 0.0-1.2 " albumin/globulin ratio, serum 1.4 [facility] 1.2-2.2 " globulin, serum 3.1 [facility] 1.5-4.5 " albumin, serum 4.3 g/dL [facility] 3.5-5.5 " protein, total, serum 7.4 g/dL [facility] 6.0-8.5 " calcium, serum 9.6 mg/dL [facility] 8.7-10.2 " carbon dioxide, venous blood 22 mmol/L [facility] 20-29 " chloride, serum 97 mmol/L [facility] 96-106 " potassium, serum 3.8 mmol/L [facility] 3.5-5.2 " sodium, serum 139 mmol/L [facility] 134-144 " urea nitrogen/creatinine ratio, serum 14 [facility] 9-23 " eGFR if 101 mL/min/((173/100).m2) [facility] >59 " Estimated Glomerular Filtration Rate (calc) 88 mL/min/((173/100).m2) [facility] >59 " creatinine, serum 0.83 mg/dL [facility] 0.57-1.00 " urea nitrogen, blood 12 mg/dL [facility] 6-24 " blood glucose, random 88 mg/dL [facility] 65-99 " immature granulocytes, percentage of total cells, blood 0 % [facility] Not Estab. " basophil count, absolute 0.1 x10E3/uL [facility] 0.0-0.2 " Eosinophil Absolute Count 0.2 X10E3/UL [facility] 0.0-0.4 " monocyte count, blood, automated 0.6 X10E3/UL [facility] 0.1-0.9 " lymphocyte count, blood, automated 2.6 X10E3/UL [facility] 0.7-3.1 " Absolute Neutrophils 8.3 X10E3/UL [facility] 1.4-7.0 High " basophils as percent of blood leukocytes 0 % [facility] Not Estab. " eosinophils as percent of blood leukocytes 1 % [facility] Not Estab. " monocytes as percent of blood leukocytes 5 % [facility] Not Estab. " lymphocytes as percent of blood leukocytes 22 % [facility] Not Estab. " neutrophils as percent of blood leukocytes 72 % [facility] Not Estab. " platelet count 394 X10E3/UL [facility] 150-450 " red blood cell distribution width 15.0 % [facility] 12.3-15.4 " mean corpuscular hemoglobin concentration, RBC 31.4 G/DL [facility] 31.5-35.7 Low " mean corpuscular hemoglobin, RBC 29.5 pg [facility] 26.6-33.0 " mean corpuscular volume, RBC 94 fL [facility] 79-97 " hematocrit, blood 35.3 % [facility] 34.0-46.6 " hemoglobin, blood 11.1 g/dL [facility] 11.1-15.9 " erythrocyte (RBC) count 3.76 X10E6/UL [facility] 3.77-5.28 Low " leukocyte count, blood 11.7 X10E3/UL [facility] 3.4-10.8 High pH, urine, semiquantitative 5.5 Lizzie Farmer " specific gravity, urine 1.020 Lizzie Farmer " glucose, urine, semiquantitative negative Lizzie Farmer " bilirubin, urine negative Lizzie Farmer " ketones, urine, by test strip negative Lizzie Farmer " blood in urine (hemoglobin) by dipstick 1+ Lizzie Farmer " protein, urine, semiquantitative (dipstick) negative Lizzie Farmer " urobilinogen, urine, semiquantitative (dipstick) negative Lizzie Farmer " nitrite, urine, semiquantitative negative Lizzie Farmer " leukocyte esterase, urine, by dipstick negative Lizzie Farmer " appearance, urine clear Lizzie Farmer " urine color yellow Lizzie Farmer specific gravity, urine 1.010 Jenise Oliveros " pH, urine, semiquantitative 6.5 Jenise Oliveros " glucose, urine, semiquantitative negative Jenise Oliveros " bilirubin, urine negative Jenise Oliveros " ketones, urine, by test strip negative Jenise Oliveros " blood in urine (hemoglobin) by dipstick hemolyzed trace Jenise Oliveros " protein, urine, semiquantitative (dipstick) negative Jenise Oliveros " urobilinogen, urine, semiquantitative (dipstick) negative Jenise Oliveros " nitrite, urine, semiquantitative negative Jenise Oliveros " leukocyte esterase, urine, by dipstick negative Jenise Oliveros " appearance, urine clear Jenise Oliveros " urine color yellow Jenise Oliveros calcium, serum 9.2 mg/dL [facility] 8.7-10.2 " carbon dioxide, venous blood 22 mmol/L [facility] 20-29 " chloride, serum 100 mmol/L [facility] 96-106 " potassium, serum 4.0 mmol/L [facility] 3.5-5.2 " sodium, serum 140 mmol/L [facility] 134-144 " urea nitrogen/creatinine ratio, serum 12 [facility] 9-23 " eGFR if 102 mL/min/((173/100).m2) [facility] >59 " Estimated Glomerular Filtration Rate (calc) 88 mL/min/((173/100).m2) [facility] >59 " creatinine, serum 0.83 mg/dL [facility] 0.57-1.00 " urea nitrogen, blood 10 mg/dL [facility] 6-24 " blood glucose, random 83 mg/dL [facility] 65-99 " immature granulocytes, percentage of total cells, blood 0 % [facility] Not Estab. " basophil count, absolute 0.1 x10E3/uL [facility] 0.0-0.2 " Eosinophil Absolute Count 0.3 X10E3/UL [facility] 0.0-0.4 " monocyte count, blood, automated 0.5 X10E3/UL [facility] 0.1-0.9 " lymphocyte count, blood, automated 2.5 X10E3/UL [facility] 0.7-3.1 " Absolute Neutrophils 6.0 X10E3/UL [facility] 1.4-7.0 " basophils as percent of blood leukocytes 1 % [facility] Not Estab. " eosinophils as percent of blood leukocytes 3 % [facility] Not Estab. " monocytes as percent of blood leukocytes 5 % [facility] Not Estab. " lymphocytes as percent of blood leukocytes 26 % [facility] Not Estab. " neutrophils as percent of blood leukocytes 65 % [facility] Not Estab. " platelet count 439 X10E3/UL [facility] 150-379 High " red blood cell distribution width 14.6 % [facility] 12.3-15.4 " mean corpuscular hemoglobin concentration, RBC 33.2 G/DL [facility] 31.5-35.7 " mean corpuscular hemoglobin, RBC 28.8 pg [facility] 26.6-33.0 " mean corpuscular volume, RBC 87 fL [facility] 79-97 " hematocrit, blood 35.2 % [facility] 34.0-46.6 " hemoglobin, blood 11.7 g/dL [facility] 11.1-15.9 " erythrocyte (RBC) count 4.06 X10E6/UL [facility] 3.77-5.28 " leukocyte count, blood 9.3 X10E3/UL [facility] 3.4-10.8 urine culture LESS [facility] specific gravity, urine 1.015 Meliza Combs " pH, urine, semiquantitative 5.5 Meliza Combs " glucose, urine, semiquantitative negative Meliza Combs " bilirubin, urine negative Meliza Combs " ketones, urine, by test strip negative Meliza Combs " blood in urine (hemoglobin) by dipstick negative Meliza Combs " protein, urine, semiquantitative (dipstick) negative Meliza Combs " urobilinogen, urine, semiquantitative (dipstick) 0.2 Meliza Combs " nitrite, urine, semiquantitative negative Meliza Combs " leukocyte esterase, urine, by dipstick negative Meliza Combs " appearance, urine clear Meliza Combs " urine color yellow Meliza Combs " Microbial identification kit, rapid strep method negative Lizzie Farmer " influenza B virus antigen negative Lizzie Farmer " influenza virus A antigen negative Lizzie Farmer alanine aminotransferase (SGPT), serum 24 1/L [facility] 0-32 " aspartate aminotransferase (SGOT), serum 19 1/L [facility] 0-40 " alkaline phosphatase, serum 103 1/L [facility] 39-117 " bilirubin, serum, total 0.4 mg/dL [facility] 0.0-1.2 " albumin/globulin ratio, serum 1.2 [facility] 1.2-2.2 " globulin, serum 3.3 [facility] 1.5-4.5 " albumin, serum 4.0 g/dL [facility] 3.5-5.5 " protein, total, serum 7.3 g/dL [facility] 6.0-8.5 " calcium, serum 9.8 mg/dL [facility] 8.7-10.2 " carbon dioxide, venous blood 23 mmol/L [facility] 20-29 " chloride, serum 95 mmol/L [facility] 96-106 Low " potassium, serum 4.2 mmol/L [facility] 3.5-5.2 " sodium, serum 136 mmol/L [facility] 134-144 " urea nitrogen/creatinine ratio, serum 15 [facility] 9-23 " eGFR if 111 mL/min/((173/100).m2) [facility] >59 " Estimated Glomerular Filtration Rate (calc) 96 mL/min/((173/100).m2) [facility] >59 " creatinine, serum 0.78 mg/dL [facility] 0.57-1.00 " urea nitrogen, blood 12 mg/dL [facility] 6-20 " blood glucose, random 76 mg/dL [facility] 65-99 " immature granulocytes, percentage of total cells, blood 0 % [facility] Not Estab. " basophil count, absolute 0.0 x10E3/uL [facility] 0.0-0.2 " Eosinophil Absolute Count 0.1 X10E3/UL [facility] 0.0-0.4 " monocyte count, blood, automated 0.6 X10E3/UL [facility] 0.1-0.9 " lymphocyte count, blood, automated 2.4 X10E3/UL [facility] 0.7-3.1 " Absolute Neutrophils 6.1 X10E3/UL [facility] 1.4-7.0 " basophils as percent of blood leukocytes 0 % [facility] Not Estab. " eosinophils as percent of blood leukocytes 1 % [facility] Not Estab. " monocytes as percent of blood leukocytes 6 % [facility] Not Estab. " lymphocytes as percent of blood leukocytes 26 % [facility] Not Estab. " neutrophils as percent of blood leukocytes 67 % [facility] Not Estab. " platelet count 418 X10E3/UL [facility] 150-379 High " red blood cell distribution width 16.3 % [facility] 12.3-15.4 High " mean corpuscular hemoglobin concentration, RBC 31.7 G/DL [facility] 31.5-35.7 " mean corpuscular hemoglobin, RBC 29.5 pg [facility] 26.6-33.0 " mean corpuscular volume, RBC 93 fL [facility] 79-97 " hematocrit, blood 32.2 % [facility] 34.0-46.6 Low " hemoglobin, blood 10.2 g/dL [facility] 11.1-15.9 Low " erythrocyte (RBC) count 3.46 X10E6/UL [facility] 3.77-5.28 Low " leukocyte count, blood 9.2 X10E3/UL [facility] 3.4-10.8 " thyroxine, serum, free 1.28 ng/dL [facility] 0.82-1.77 " thyroid stimulating hormone, serum 2.600 u[iU]/mL [facility] 0.450-4.500 beta streptococcus screen, throat Negative [facility] specific gravity, urine 1.005 Lizzie Farmer " pH, urine, semiquantitative 6.5 Lizzie Farmer " glucose, urine, semiquantitative negative Lizzie Farmer " bilirubin, urine negative Lizzie Farmer " ketones, urine, by test strip negative Lizzie Farmer " blood in urine (hemoglobin) by dipstick negative Lizzie Farmer " protein, urine, semiquantitative (dipstick) negative Lizzie Farmer " urobilinogen, urine, semiquantitative (dipstick) negative Lizzie Farmer " nitrite, urine, semiquantitative negative Lizzie Farmer " leukocyte esterase, urine, by dipstick negative Lizzie Farmer " appearance, urine clear Lizzie Farmer " urine color yellow Lizzie Farmer urine culture Klebsiella pneumoniae [facility] Abnormal " bacteria, urine microscopy Few [facility] None seen/Few " mucus on urinalysis Present [facility] Not Estab. " epithelial cells, urine >10 [facility] 0 - 10 Abnormal " RBC, Urine >30 /hpf [facility] 0 - 2 Abnormal " WBC urine on microscopy 6-10 /hpf [facility] 0 - 5 Abnormal " urinalysis, microscopic examination See below: [facility] " nitrate, urine Negative [facility] Negative " urobilinogen, urine, semiquantitative (dipstick) 0.2 [facility] 0.2-1.0 " bilirubin, urine Negative [facility] Negative " ketones, urine, by test strip Negative [facility] Negative " glucose, urine, semiquantitative Negative [facility] Negative " protein, urine, semiquantitative (dipstick) Trace [facility] Negative/Trace " leukocyte esterase, urine, by dipstick Negative [facility] Negative " appearance, urine Clear [facility] Clear " urine color Yellow [facility] Yellow " pH, urine, semiquantitative 6.0 [facility] 5.0-7.5 " specific gravity, body fluid 1.022 [facility] 1.005-1.030 " alanine aminotransferase (SGPT), serum 23 1/L [facility] 0-32 " aspartate aminotransferase (SGOT), serum 20 1/L [facility] 0-40 " alkaline phosphatase, serum 116 1/L [facility] 39-117 " bilirubin, serum, total 0.3 mg/dL [facility] 0.0-1.2 " albumin/globulin ratio, serum 1.2 [facility] 1.2-2.2 " globulin, serum 3.7 [facility] 1.5-4.5 " albumin, serum 4.3 g/dL [facility] 3.5-5.5 " protein, total, serum 8.0 g/dL [facility] 6.0-8.5 " calcium, serum 9.7 mg/dL [facility] 8.7-10.2 " carbon dioxide, venous blood 23 mmol/L [facility] 18-29 " chloride, serum 100 mmol/L [facility] 96-106 " potassium, serum 4.2 mmol/L [facility] 3.5-5.2 " sodium, serum 139 mmol/L [facility] 134-144 " urea nitrogen/creatinine ratio, serum 15 [facility] 9-23 " eGFR if 104 mL/min/((173/100).m2) [facility] >59 " Estimated Glomerular Filtration Rate (calc) 90 mL/min/((173/100).m2) [facility] >59 " creatinine, serum 0.82 mg/dL [facility] 0.57-1.00 " urea nitrogen, blood 12 mg/dL [facility] 6-20 " blood glucose, random 88 mg/dL [facility] 65-99 " immature granulocytes, percentage of total cells, blood 0 % [facility] Not Estab. " basophil count, absolute 0.1 x10E3/uL [facility] 0.0-0.2 " Eosinophil Absolute Count 0.3 X10E3/UL [facility] 0.0-0.4 " monocyte count, blood, automated 0.5 X10E3/UL [facility] 0.1-0.9 " lymphocyte count, blood, automated 3.1 X10E3/UL [facility] 0.7-3.1 " Absolute Neutrophils 6.0 X10E3/UL [facility] 1.4-7.0 " basophils as percent of blood leukocytes 1 % [facility] Not Estab. " eosinophils as percent of blood leukocytes 3 % [facility] Not Estab. " monocytes as percent of blood leukocytes 5 % [facility] Not Estab. " lymphocytes as percent of blood leukocytes 31 % [facility] Not Estab. " neutrophils as percent of blood leukocytes 60 % [facility] Not Estab. " platelet count 492 X10E3/UL [facility] 150-379 High " red blood cell distribution width 14.0 % [facility] 12.3-15.4 " mean corpuscular hemoglobin concentration, RBC 31.6 G/DL [facility] 31.5-35.7 " mean corpuscular hemoglobin, RBC 28.8 pg [facility] 26.6-33.0 " mean corpuscular volume, RBC 91 fL [facility] 79-97 " hematocrit, blood 35.8 % [facility] 34.0-46.6 " hemoglobin, blood 11.3 g/dL [facility] 11.1-15.9 " erythrocyte (RBC) count 3.93 X10E6/UL [facility] 3.77-5.28 " leukocyte count, blood 10.0 X10E3/UL [facility] 3.4-10.8 specific gravity, urine 1.010 Meliza Combs " pH, urine, semiquantitative 5.5 Meliza Combs " glucose, urine, semiquantitative negative Meliza Combs " bilirubin, urine negative Meliza Combs " ketones, urine, by test strip negative Meliza Combs " blood in urine (hemoglobin) by dipstick 3+ Meliza Combs " protein, urine, semiquantitative (dipstick) negative Meliza Combs " urobilinogen, urine, semiquantitative (dipstick) 0.2 Meliza Combs " nitrite, urine, semiquantitative negative Meliza Combs " leukocyte esterase, urine, by dipstick negative Meliza Combs " appearance, urine clear Meliza Combs " urine color yellow Meliza Combs alanine aminotransferase (SGPT), serum 19 1/L [facility] 0-32 " aspartate aminotransferase (SGOT), serum 19 1/L [facility] 0-40 " alkaline phosphatase, serum 108 1/L [facility] 39-117 " bilirubin, serum, total 0.3 mg/dL [facility] 0.0-1.2 " albumin/globulin ratio, serum 1.1 [facility] 1.2-2.2 Low " globulin, serum 3.5 [facility] 1.5-4.5 " albumin, serum 3.8 g/dL [facility] 3.5-5.5 " protein, total, serum 7.3 g/dL [facility] 6.0-8.5 " calcium, serum 9.3 mg/dL [facility] 8.7-10.2 " carbon dioxide, venous blood 25 mmol/L [facility] 18-29 " chloride, serum 95 mmol/L [facility] 96-106 Low " potassium, serum 4.6 mmol/L [facility] 3.5-5.2 " sodium, serum 138 mmol/L [facility] 134-144 " urea nitrogen/creatinine ratio, serum 19 [facility] 9-23 " eGFR if 127 mL/min/((173/100).m2) [facility] >59 " Estimated Glomerular Filtration Rate (calc) 111 mL/min/((173/100).m2) [facility] >59 " creatinine, serum 0.68 mg/dL [facility] 0.57-1.00 " urea nitrogen, blood 13 mg/dL [facility] 6-20 " blood glucose, random 74 mg/dL [facility] 65-99 " immature granulocytes, percentage of total cells, blood 0 % [facility] Not Estab. " basophil count, absolute 0.1 x10E3/uL [facility] 0.0-0.2 " Eosinophil Absolute Count 0.1 X10E3/UL [facility] 0.0-0.4 " monocyte count, blood, automated 0.6 X10E3/UL [facility] 0.1-0.9 " lymphocyte count, blood, automated 2.5 X10E3/UL [facility] 0.7-3.1 " Absolute Neutrophils 5.1 X10E3/UL [facility] 1.4-7.0 " basophils as percent of blood leukocytes 1 % [facility] Not Estab. " eosinophils as percent of blood leukocytes 2 % [facility] Not Estab. " monocytes as percent of blood leukocytes 7 % [facility] Not Estab. " lymphocytes as percent of blood leukocytes 29 % [facility] Not Estab. " neutrophils as percent of blood leukocytes 61 % [facility] Not Estab. " platelet count 488 X10E3/UL [facility] 150-379 High " red blood cell distribution width 20.9 % [facility] 12.3-15.4 High " mean corpuscular hemoglobin concentration, RBC 31.4 G/DL [facility] 31.5-35.7 Low " mean corpuscular hemoglobin, RBC 26.6 pg [facility] 26.6-33.0 " mean corpuscular volume, RBC 85 fL [facility] 79-97 " hematocrit, blood 35.3 % [facility] 34.0-46.6 " hemoglobin, blood 11.1 g/dL [facility] 11.1-15.9 " erythrocyte (RBC) count 4.17 X10E6/UL [facility] 3.77-5.28 " leukocyte count, blood 8.4 X10E3/UL [facility] 3.4-10.8 urine culture No growth [facility] glucose, urine, semiquantitative negative Lisbet Geraldo " bilirubin, urine negative Lisbet Geraldo " ketones, urine, by test strip negative Lisbet Geraldo " blood in urine (hemoglobin) by dipstick 1+ Lisbet Geraldo " urobilinogen, urine, semiquantitative (dipstick) negative Lisbet Geraldo " nitrite, urine, semiquantitative negative Lisbet Geraldo " appearance, urine clear [facility] " urine color yellow [facility] " protein, urine, semiquantitative (dipstick) 1+ [facility] " leukocyte esterase, urine, by dipstick 1+ [facility] thyroid stimulating hormone, serum 2.610 u[iU]/mL [facility] 0.450-4.500 " hemoglobin A1C, blood, as % of total hemoglobin 5.1 % [facility] 4.8-5.6 " LDL cholesterol, serum 109 mg/dL [facility] 0-99 High " very low density lipoproteins 22 mg/dL [facility] 5-40 " HDL cholesterol, serum 64 mg/dL [facility] >39 " triglyceride, serum, fasting 110 mg/dL [facility] 0-149 " cholesterol, serum 195 mg/dL [facility] 100-199 " alanine aminotransferase (SGPT), serum 30 1/L [facility] 0-32 " aspartate aminotransferase (SGOT), serum 22 1/L [facility] 0-40 " alkaline phosphatase, serum 120 1/L [facility] 39-117 High " bilirubin, serum, total 0.3 mg/dL [facility] 0.0-1.2 " albumin/globulin ratio, serum 1.2 [facility] 1.2-2.2 " globulin, serum 3.3 [facility] 1.5-4.5 " albumin, serum 3.9 g/dL [facility] 3.5-5.5 " protein, total, serum 7.2 g/dL [facility] 6.0-8.5 " calcium, serum 9.6 mg/dL [facility] 8.7-10.2 " carbon dioxide, venous blood 27 mmol/L [facility] 18-29 " chloride, serum 96 mmol/L [facility] 96-106 " potassium, serum 4.3 mmol/L [facility] 3.5-5.2 " sodium, serum 138 mmol/L [facility] 134-144 " urea nitrogen/creatinine ratio, serum 14 [facility] 9-23 " eGFR if 98 mL/min/((173/100).m2) [facility] >59 " Estimated Glomerular Filtration Rate (calc) 85 mL/min/((173/100).m2) [facility] >59 " creatinine, serum 0.86 mg/dL [facility] 0.57-1.00 " urea nitrogen, blood 12 mg/dL [facility] 6-20 " blood glucose, random 75 mg/dL [facility] 65-99 " immature granulocytes, percentage of total cells, blood 0 % [facility] " basophil count, absolute 0.0 x10E3/uL [facility] 0.0-0.2 " Eosinophil Absolute Count 0.1 X10E3/UL [facility] 0.0-0.4 " monocyte count, blood, automated 0.5 X10E3/UL [facility] 0.1-0.9 " lymphocyte count, blood, automated 2.2 X10E3/UL [facility] 0.7-3.1 " Absolute Neutrophils 5.9 X10E3/UL [facility] 1.4-7.0 " basophils as percent of blood leukocytes 1 % [facility] " eosinophils as percent of blood leukocytes 1 % [facility] " monocytes as percent of blood leukocytes 6 % [facility] " lymphocytes as percent of blood leukocytes 25 % [facility] " neutrophils as percent of blood leukocytes 67 % [facility] " platelet count 570 X10E3/UL [facility] 150-379 High " red blood cell distribution width 15.4 % [facility] 12.3-15.4 " mean corpuscular hemoglobin concentration, RBC 31.9 G/DL [facility] 31.5-35.7 " mean corpuscular hemoglobin, RBC 26.9 pg [facility] 26.6-33.0 " mean corpuscular volume, RBC 84 fL [facility] 79-97 " hematocrit, blood 29.8 % [facility] 34.0-46.6 Low " hemoglobin, blood 9.5 g/dL [facility] 11.1-15.9 Low " erythrocyte (RBC) count 3.53 X10E6/UL [facility] 3.77-5.28 Low " leukocyte count, blood 8.7 X10E3/UL [facility] 3.4-10.8 HISTORY OF IMMUNIZATIONS Date Vaccine Dose Lot Number Status Fluzone Quadrivalent IM PF 0.5 ML [facility] [address]-21 [employer] 0.5 mL [id number] completed HISTORY OF MEDICATION USE Medication Instructions Dates Provider Comments RANITIDINE HCL 150 MG ORAL TABLET 1 by mouth twice a day Lisbet Geraldo ACETIC ACID 2 % OTIC SOLUTION 3 DROPS per ear Every 6-8 hrs for 5 days Lisbet Geraldo CLARITIN 10 MG ORAL TABLET 1 by mouth every day Lisbet Geraldo TESSALON PERLES 100 MG ORAL CAPSULE 1 by mouth 3 times a day as needed for cough Lisbet Geraldo COLD MULTI-SYMPTOM DAYTIME 10-5-325 MG ORAL TABLET use as directed Lisbet Geraldo ZYRTEC ALLERGY 10 MG ORAL TABLET 1 by mouth every day Lisbet Geraldo FLONASE ALLERGY RELIEF 50 MCG/ACT NASAL SUSPENSION 2 sprays each nostril every day Lisbet Geraldo AUGMENTIN 875-125 MG ORAL TABLET 1 by mouth twice a day Lisbet Geraldo PREDNISONE 20 MG ORAL TABLET Take 1 tab By Mouth BID x 2 days; then 1 tab x 4 days Lisbet Geraldo AUGMENTIN 875-125 MG ORAL TABLET 1 by mouth twice a day Lisbet Geraldo FERROUS SULFATE 325 (65 FE) MG ORAL TABLET DELAYED RELEASE 1 by mouth daily Lisbet Geraldo AZITHROMYCIN 250 MG ORAL TABLET 2 tablets by mouth on day one then one tablet by mouth each day for a total of 5 days Lisbet Geraldo GABAPENTIN 100 MG ORAL CAPSULE 1 tab By Mouth Three Times a Day prn Lisbet Lorenzanaome #30, 30 days supply, Filled 08/30/2017 AUGMENTIN 875-125 MG ORAL TABLET 1 by mouth twice a day - Lisbet Geraldo FLOMAX 0.4 MG ORAL CAPSULE 1 by mouth every day Lisbet Geraldo TRAMADOL HCL 50 MG ORAL TABLET 1 tablets by mouth 3 times a day as needed for pain Lisbet Geraldo AZITHROMYCIN 250 MG ORAL TABLET 2 tablets by mouth on day one then one tablet by mouth each day for a total of 5 days Lisbet Geraldo SULFAMETHOXAZOLE-TRIMETHOPRIM 800-160 MG ORAL TABLET 1 tab By Mouth bid Lisbet Geraldo CYCLOBENZAPRINE HCL 10 MG ORAL TABLET 1 By Mouth three times a day as needed for muscle spasm Lisbet Geraldo NAPROXEN 500 MG ORAL TABLET 1 by mouth twice a day as needed for pain and inflammation Lisbet Geraldo HYDROCHLOROTHIAZIDE 25 MG TAB TAKE 1 TABLET BY MOUTH EVERY DAY Lisbet Chow SOCIAL HISTORY Date Observation Value Provider drug use, illicit Never Ginette Pool " alcohol use Never Ginette Pool " social history reviewed E&M reviewed today Ginette Pool " assessment of health literacy ([facility] 2014 Standards, 3C10) Adequate Ginette Pool " passive cigarette smoke exposure No Ginette Pool " smoking status never smoker Ginette Pool " Exercise Program Referral T Ginette Pool " Weight Management Counseling Provided T Ginette Pool " Nutrition intervention T Ginette Pool " Exercise Program Referral T Jenise Oliveros " Weight Management Counseling Provided T Jenise Oliveros " Nutrition intervention T Jenise Oliveros " sexual orientation Heterosexual Carol S Conde " passive cigarette smoke exposure No Carol S Conde " smoking status never smoker Carol S Conde is there any chance that you could be ? No Maria Luisa Cantrell " passive cigarette smoke exposure No Maria Luisa Cantrell " assessment of health literacy ([facility] 2014 Standards, 3C10) Adequate Maria Luisa Cantrell " sexual orientation Heterosexual Maria Luisa Cantrell " drug use, illicit Never Maria Luisa Cantrell " alcohol use Never Maria Luisa Cantrell " smoking status never smoker Maria Luisa Cantrell " social history reviewed E&M reviewed today Maria Luisa Cantrell drug use, illicit Never Lizzie Farmer " alcohol use Never Lizzie Farmer " social history reviewed E&M reviewed today Lizzie Farmer " sexual orientation Heterosexual Lizzie Farmer " assessment of health literacy ([facility] 2014 Standards, 3C10) Adequate Lizzie Farmer " passive cigarette smoke exposure No Lizzie Farmer " smoking status never smoker Lizzie Farmer " Exercise Program Referral T Lizzie Farmer " Weight Management Counseling Provided T Lizzie Farmer " Nutrition intervention T Lizzie Farmer drug use, illicit Never Jenise Oliveros " alcohol use Never Jenise Oliveros " social history reviewed E&M reviewed today Jenise Oliveros " sexual orientation Heterosexual Jenise Oliveros " assessment of health literacy ([facility] 2014 Standards, 3C10) Adequate Jenise Oliveros " passive cigarette smoke exposure No Jenise Oliveros " smoking status never smoker Jenise Oliveros " Exercise Program Referral T Jenise Oliveros " Weight Management Counseling Provided T Jenise Oliveros " Nutrition intervention T Jenise Oliveros drug use, illicit Never Dixie Dunaway " alcohol use Never Dixie Dunaway " social history reviewed E&M reviewed today Dixie Dunaway " sexual orientation Heterosexual Dixie Dunaway " assessment of health literacy ([facility] 2014 Standards, 3C10) Adequate Dixie Dunaway " passive cigarette smoke exposure No Dixei Dunaway " smoking status never smoker Dixie Dunaway " Exercise Program Referral T Dixie Dunaway " Weight Management Counseling Provided T Dixie Dunaway " Nutrition intervention T Dixie Dunaway Exercise Program Referral T Lisbet Geraldo " Weight Management Counseling Provided T Lisbet Geraldo " Nutrition intervention T Lisbet Geraldo " drug use, illicit Never Lizzie Farmer " alcohol use Never Lizzie Farmer " social history reviewed E&M reviewed today Lizzie Farmer " sexual orientation Heterosexual Lizzie Farmer " assessment of health literacy ([facility] 2014 Standards, 3C10) Adequate Lizzie Farmer " passive cigarette smoke exposure No Lizzie Farmer " smoking status never smoker Lizzie Farmer assessment of health literacy ([facility] 2014 Standards, 3C10) Adequate Maria Luisa Cantrell " sexual orientation Heterosexual Maria Luisa Cantrell " passive cigarette smoke exposure No Maria Luisasunita Cantrell " drug use, illicit Never Maria Luisasunita Cantrell " alcohol use Never Maria Luisasunita Cantrell " smoking status never smoker Maria Luisa Cantrell " social history reviewed E&M reviewed today Maria Luisa Cantrell Exercise Program Referral T Lisbet Geraldo " Weight Management Counseling Provided T Lisbet Geraldo " Nutrition intervention T Lisbet Geraldo " drug use, illicit Never Meliza Combs " alcohol use Never Meliza Combs " social history reviewed E&M reviewed today Meliza Combs " sexual orientation Heterosexual Meliza Combs " assessment of health literacy ([facility] 2014 Standards, 3C10) Adequate Meliza Combs " passive cigarette smoke exposure No Meliza Combs " smoking status never smoker Meliza Combs Exercise Program Referral T Lisbet Geraldo " Weight Management Counseling Provided T Lisbet Geraldo " Nutrition intervention T Lisbet Geraldo social history reviewed E&M reviewed today Lisbet Geraldo " Exercise Program Referral T Lisbet Geraldo " Weight Management Counseling Provided T Lisbet Geraldo " Nutrition intervention T Lisbet Geraldo drug use, illicit Never Lizzie Lorenzorez " alcohol use Never Lizzie Lorenzorez " social history reviewed E&M reviewed today Lizzie Farmer " sexual orientation Heterosexual Lizzie Lorenzorez " assessment of health literacy ([facility] 2014 Standards, 3C10) Adequate Lizzie Farmer " passive cigarette smoke exposure No Lizzie Farmer " smoking status never smoker Lizzie Lorenzorez " sexual orientation Heterosexual Marcela Latif " assessment of health literacy ([facility] 2014 Standards, 3C10) Adequate Marcela Latif " is there any chance that you could be ? No Marcela Latif " passive cigarette smoke exposure No Marcela Latif " smoking status never smoker Marcela Latif Exercise Program Referral T Lisbet Geraldo " Weight Management Counseling Provided T ome " Nutrition intervention T Lisbet Geraldo drug use, illicit Never Ginette Pool " alcohol use Never Ginette Pool " social history reviewed E&M reviewed today Ginette Pool " assessment of health literacy ([facility] 2014 Standards, 3C10) Adequate Ginette Pool " passive cigarette smoke exposure No Ginette Pool " smoking status never smoker Ginette Pool drug use, illicit Never Lizzie Lorenzorez " alcohol use Never Lizzie Lorenzorez " social history reviewed E&M reviewed today Lizzie Farmer " Exercise Program Referral T Lisbet Geraldo " Weight Management Counseling Provided T Lisbet Geraldo " Nutrition intervention T Lisbet Geraldo " sexual orientation Heterosexual Marcela Latif " assessment of health literacy ([facility] 2014 Standards, 3C10) Adequate Marcela Latif " is there any chance that you could be ? No Marcela Latif " passive cigarette smoke exposure No Marcela Latif " smoking status never smoker Marcela Latif time of call 09/16/2017 3:15 PM Mina Conde Exercise Program Referral T Lisbet Geraldo " Weight Management Counseling Provided T ome " Nutrition intervention T Lisbet Geraldo " drug use, illicit Never Ginette Pool " alcohol use Never Ginette Pool " social history reviewed E&M reviewed today Ginette Pool " assessment of health literacy ([facility] 2014 Standards, 3C10) Adequate Ginette Pool " passive cigarette smoke exposure No Ginette Pool " smoking status never smoker Ginette Pool drug use, illicit Never Susana Wright " alcohol use Never Susana Wright " social history reviewed E&M reviewed today Susana Wright " sexual orientation Heterosexual Susana Wright " passive cigarette smoke exposure No Susana Wright " smoking status never smoker Susana Wright " assessment of health literacy ([facility] 2014 Standards, 3C10) Adequate Susana Wright social history reviewed E&M reviewed today Ellen Walters " passive cigarette smoke exposure No Ellen Walters " smoking status never smoker Ellen Dalyniz " assessment of health literacy ([facility] 2014 Standards, 3C10) Adequate Ellen Walters " Exercise Program Referral T Ellen Walters " Weight Management Counseling Provided T Ellen Walters " Nutrition intervention T Ellen Walters Exercise Program Referral T Lisbet Geraldo " Weight Management Counseling Provided T Lisbet Geraldo " Nutrition intervention T Lisbet Geraldo social history reviewed E&M reviewed today Deya Navarro " sexual orientation Heterosexual Deya Navarro " passive cigarette smoke exposure No Deya Navarro " smoking status never smoker Deyasarah Ramirezvez " assessment of health literacy ([facility] 2014 Standards, 3C10) Adequate Deya Navarro " sexual orientation Heterosexual Dixie Cory " passive cigarette smoke exposure No Dixie Ray " smoking status never smoker Dixie Lemavez " assessment of health literacy ([facility] 2014 Standards, 3C10) Adequate Dixie Ray " Exercise Program Referral T Dixie Ray " Weight Management Counseling Provided T Dixie Ray " Nutrition intervention T Dixie Ray " social history reviewed E&M reviewed today Dixie Ray sex at Female Isabel Moe " 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 No Isabel Moe " passive cigarette smoke exposure No Isabel Moe " smoking status never smoker Isabel Moe " assessment of health literacy ([facility] 2014 Standards, 3C10) Adequate Isabel Moe FUNCTIONAL STATUS No Information Available MENTAL STATUS Date Observation Value Provider assessment of mood and affect E&M no depression, anxiety, or agitation Lisbet Geraldo " mental status examination: orientation E&M oriented to time, place, and person Lisbet Geraldo " Generalized Anxiety Disorder Questionnaire - Question 2 0 Ginette Newman " Generalized Anxiety Disorder Questionnaire - Question 1 0 Ginette Newman assessment of mood and affect E&M no depression, anxiety, or agitation Lisbet Geraldo " mental status examination: orientation E&M oriented to time, place, and person Lisbet Geraldo " Generalized Anxiety Disorder Questionnaire - Question 2 0 Carol Conde " Generalized Anxiety Disorder Questionnaire - Question 1 0 Carol Conde assessment of judgment and insight E&M intact Lisbet Geraldo " assessment of mood and affect E&M no depression, anxiety, or agitation Lisbet Geraldo " Generalized Anxiety Disorder Questionnaire - Question 2 0 Maria Luisa Cantrell " Generalized Anxiety Disorder Questionnaire - Question 1 0 Maria Luisa Cantrell Generalized Anxiety Disorder Questionnaire - Question 2 0 Lizzie Farmer " Generalized Anxiety Disorder Questionnaire - Question 1 0 Lizzie Farmer assessment of judgment and insight E&M intact Lisbet Geraldo " assessment of mood and affect E&M no depression, anxiety, or agitation Lisbet Geraldo " Generalized Anxiety Disorder Questionnaire - Question 2 0 Jenise Oliveros " Generalized Anxiety Disorder Questionnaire - Question 1 0 Jenise Oliveros assessment of judgment and insight E&M intact Lisbet Geraldo " Generalized Anxiety Disorder Questionnaire - Question 2 0 Dixie Dunaway " Generalized Anxiety Disorder Questionnaire - Question 1 0 Dixie Dunaway assessment of judgment and insight E&M intact Lisbet Geraldo Generalized Anxiety Disorder Questionnaire - Question 2 0 Lizzie Farmer " Generalized Anxiety Disorder Questionnaire - Question 1 0 Lizzie Farmer Generalized Anxiety Disorder Questionnaire - Question 2 0 Maria Luisa Cantrell " Generalized Anxiety Disorder Questionnaire - Question 1 0 Maria Luisa Cantrell mental status examination: orientation E&M oriented to time, place, and person [facility] " assessment of judgment and insight E&M intact [facility] " assessment of mood and affect E&M no depression, anxiety, or agitation [facility] " Generalized Anxiety Disorder Questionnaire - Question 2 0 Meliza Combs " Generalized Anxiety Disorder Questionnaire - Question 1 0 Meliza Combs assessment of judgment and insight E&M intact [facility] " assessment of mood and affect E&M no depression, anxiety, or agitation [facility] assessment of judgment and insight E&M intact [facility] " assessment of mood and affect E&M no depression, anxiety, or agitation [facility] Generalized Anxiety Disorder Questionnaire - Question 2 0 Lizzie Farmer " Generalized Anxiety Disorder Questionnaire - Question 1 0 Lizzie Farmer Generalized Anxiety Disorder Questionnaire - Question 2 0 Marcela Latif " Generalized Anxiety Disorder Questionnaire - Question 1 0 Marcela Latif assessment of judgment and insight E&M intact [facility] " assessment of mood and affect E&M no depression, anxiety, or agitation [facility] assessment of judgment and insight E&M intact [facility] " assessment of mood and affect E&M no depression, anxiety, or agitation [facility] Generalized Anxiety Disorder Questionnaire - Question 2 0 Ginette Newman " Generalized Anxiety Disorder Questionnaire - Question 1 0 Ginette Newman Generalized Anxiety Disorder Questionnaire - Question 2 0 Marcela Latif " Generalized Anxiety Disorder Questionnaire - Question 1 0 Marcela Latif assessment of judgment and insight E&M intact [facility] " assessment of mood and affect E&M no depression, anxiety, or agitation [facility] " Generalized Anxiety Disorder Questionnaire - Question 2 0 Ginette Pool " Generalized Anxiety Disorder Questionnaire - Question 1 0 Ginette Pool assessment of judgment and insight E&M intact [facility] " Generalized Anxiety Disorder Questionnaire - Question 2 0 Susana Wright " Generalized Anxiety Disorder Questionnaire - Question 1 0 Susana Wright Generalized Anxiety Disorder Questionnaire - Question 2 0 Ellen Walters " Generalized Anxiety Disorder Questionnaire - Question 1 0 Ellen Walters assessment of judgment and insight E&M intact Lisbet Geraldo " assessment of mood and affect E&M no depression, anxiety, or agitation Lisbet Geraldo " Generalized Anxiety Disorder Questionnaire - Question 2 0 Deya Navarro " Generalized Anxiety Disorder Questionnaire - Question 1 0 Deya Navarro assessment of judgment and insight E&M intact Rakan Hampton " mental status examination: orientation E&M oriented to time, place, and person Rakan Hampton " assessment of mood and affect E&M no depression, anxiety, or agitation Susnasir Hampton " Generalized Anxiety Disorder Questionnaire - Question 2 0 Dixie Ray " Generalized Anxiety Disorder Questionnaire - Question 1 0 Dixie Lemavez assessment of judgment and insight E&M intact Lisbet Geraldo " mental status examination: orientation E&M oriented to time, place, and person Lisbet Geraldo " assessment of mood and affect E&M no depression, anxiety, or agitation Lisbet Geraldo " Generalized Anxiety Disorder Questionnaire - Question 2 0 Isabel Moe " Generalized Anxiety Disorder Questionnaire - Question 1 0 Isabel Moe MEDICAL EQUIPMENT No Information Available FAMILY HISTORY No Information Available INSURANCE PROVIDERS No Information Available ADVANCE DIRECTIVES No Information Available TREATMENT PLAN Date Name Comp. Metabolic Panel (14) CBC With Differential/Platelet Basic Metabolic Panel (8) CBC With Differential/Platelet Urine Culture, Routine TSH+Free T4 Comp. Metabolic Panel (14) CBC With Differential/Platelet B-Hemolytic Streptococcus Culture, Group A Only Urinalysis Complete w/reflex to Culture Comp. Metabolic Panel (14) CBC With Differential/Platelet Comp. Metabolic Panel (14) CBC With Differential/Platelet Urine Culture, Routine TSH Rfx on Abnormal to Free T4 Hemoglobin A1c Lipid Panel Comp. Metabolic Panel (14) CBC With Differential/Platelet - - - - Est Patient Exp Problem - 38510 Vaccines Ordered - Print Consent/Declination Forms Urinalysis - Dip only - In House Est Patient Detailed - 86561 Est Patient Exp Problem - 85285 Ofc Vst, Est Level III Est Patient Exp Problem - 77930 Est Patient Detailed - 87538 Ofc Vst, Est Level III Ofc Vst, Est Level III Rapid Strep - In House Rapid Flu - In House Est Patient Detailed - 16231 Est Patient Detailed - 68999 IM or SQ Injection Injection, ketorolac tromethamine (toradol), per 15 mg IM or SQ Injection Injection, dexamethasone sodium phosphate, 1mg Est Patient Detailed - 13537 IM or SQ Injection Injection, ketorolac tromethamine (toradol), per 15 mg Est Patient Detailed - 46815 Ear Irrigation Est Patient Detailed - 92055 IM or SQ Injection Injection, dexamethasone sodium phosphate, 1mg Urinalysis - Dip only - In House Rapid Strep - In House Est Patient Exp Problem - 89181 Est Patient Detailed - 69468 Est Patient Exp Problem - 70439 Est Patient Well Exam (18 - 39 Yrs) - 53780 Est Patient Exp Problem - 47363 New Patient Exp Problem - 71120 HISTORY OF PROCEDURES Procedure Date Procedure Name Provider Procedure Notes Status Vaccines Ordered - Print Consent/Declination Forms Lisbet Chow completed Urinalysis - Dip only - In House Lisbet Chow completed Rapid Strep - In House Lisbet Lorenzanaome completed Rapid Flu - In House Lisbet Geraldo completed IM or SQ Injection Lisbet Geraldo completed Injection, ketorolac tromethamine (toradol), per 15 mg Lisbet Geraldo ND: [id number]. completed IM or SQ Injection Lisbet Geraldo completed Injection, dexamethasone sodium phosphate, 1mg Lisbet Geraldo NDC: [id number]. completed IM or SQ Injection Lisbet Geraldo completed Injection, ketorolac tromethamine (toradol), per 15 mg Lisbet Geraldo NDC: [id number]. completed Ear Irrigation Lisbet Geraldo completed IM or SQ Injection Lisbet Geraldo 4mg IM Dexamethasone completed Injection, dexamethasone sodium phosphate, 1mg Lisbet Geraldo NDC: [id number]. completed Urinalysis - Dip only - In House Lisbet Geraldo completed Rapid Strep - In House Lisbet Geraldo completed GOALS No Information Available HEALTH CONCERNS No Information Available
--- OUTSIDE RECORDS SUMMARY | 2019-05-24 13:26 | XMS REPORT | Summary of Care ---
Author Author [facility] - Health Organization [facility] Health Address Unknown Phone Unavailable Care Team Providers Care Tube Draw Helper Name Role Phone Lidya Saavedra CNM PCP Reason for Visit * Reason Comments NURSE ONLY Encounter Details Care Team Description Date Type Department Rachel Varela PA-C [address], [place] [address] Visit, [facility] Nurse Depo-Provera contraceptive status (Primary Dx) 12/01/2018 Nurse Visit [facility] [address] Allergies No Known Allergiesdocumented as of this encounter (statuses as of 12/01/2018) Medications End Date Status Medication Sig Dispensed Refills Start Date Active ferrous sulfate (IRON, Take 1 tablet 90 tablet 4 FERROUS SULFATE,) 325 mg by mouth 9 (65 mg iron) daily. tabletIndications: Iron deficiency anemia due to chronic blood loss 12/01/2018 Discontinued norgestimate-ethinyl Take 1 tablet 1 Package 11 estradiol 0.25-35 mg-mcg by mouth 7 per tablet daily. 12/01/2018 Discontinued norgestimate-ethinyl Take 1 tablet 1 Package 12 estradiol 0.25-35 mg-mcg by mouth 8 per tablet daily. Status Hospital, Clinic, or Ordered Dose Route Frequency Start End Date Other Facility Date Administered Medication Active medroxyPROGESTERone 150 mg IM [id number] 12/02/19 (DEPO-PROVERA) injection 19 150 mgIndications: Depo-Provera contraceptive status documented as of this encounter (statuses as of 12/01/2018) Active Problems Problem Noted Date Acute nasopharyngitis (common cold) 10/18/2017 Mentally challenged 10/18/2017 Depo-Provera contraceptive status 07/12/2017 Iron deficiency anemia due to chronic blood loss 04/16/2017 Morbid obesity 04/16/2017 Menorrhagia with regular cycle 08/20/2016 Overview: old female here for menses review. Ms. Perea is mentally challenged Pt and is unable to tolerate bi madalyn exams. She has a hx of over 5 year treatment of menorrhagia with OCP's. She has a Hx of anemia as well for the heavy menses. She is not able to tolerate a pelvic ultrasound and will not tolerate a placement of a mirena IUD. This case was presented to my consulted MD and he advised depo provera, and continued iron. If the H&H is not improved in 3 months and the bleeding pattern is not improved with Depo provera and 3 months of OCP's - she will be sent to [facility] in [place] for presentation of new plan. Possible light sedation for pelvic exam and pelvic ultrasound. Ben Dixon MD at 10/18/2017 1:00 PM Status: Signed Expand AllCollapse All If able I recommend endo BX, but if refuses , just continue Depo Provera. mark bradley md documented as of this encounter (statuses as of 12/01/2018) Resolved Problems Problem Noted Date Resolved Date Initiation of Depo Provera 04/16/2017 07/12/2017 Anemia 08/21/2016 04/16/2017 Obesity 08/20/2016 04/16/2017 Routine gynecological examination 08/20/2016 03/08/2017 Family planning counseling 08/20/2016 03/08/2017 Vaginitis and vulvovaginitis, unspecified 08/20/2016 03/08/2017 documented as of this encounter (statuses as of 12/01/2018) Social History Date Tobacco Use Types Packs/Day Years Used Never Smoker Smokeless Tobacco: Never Used Drinks/Week oz/Week Comments Alcohol Use No Sex Assigned at Date Recorded Not on file Industry Job Start Date Occupation Not on file Not on file Not on file Travel End Travel History Travel Start No recent travel history available. documented as of this encounter Last Filed Vital Signs Reading Time Taken Comments Vital Sign 125/77 12/01/2018 2:07 PM CDT Blood Pressure 81 12/01/2018 2:07 PM CDT Pulse 36.4 C (97.5 F) 12/01/2018 2:07 PM CDT Temperature - - Respiratory Rate - - Oxygen Saturation - - Inhaled Oxygen Concentration 85.7 kg (189 lb) 12/01/2018 2:07 PM CDT Weight 157.5 cm (5' 2") 12/01/2018 2:07 PM CDT Height 34.57 12/01/2018 2:07 PM CDT Body Mass Index documented in this encounter Patient Instructions * Patient Instructions* Elsa Navarro RN - 12/01/2018 1:45 PM CDT Medroxyprogesterone injection [Contraceptive] Brand Names: Depo-Provera, Depo-subQ Provera 104 What is this medicine? MEDROXYPROGESTERONE (me DROX ee proe FLAVIO te jessica) contraceptive injections preve nt . They provide effective control for 3 months. Depo-subQ Prove ra 104 is also used for treating pain related to endometriosis. How should I use this medicine? Depo-Provera Contraceptive injection is given into a muscle. Depo-subQ Provera 1 04 injection is given under the skin. These injections are given by a health car e professional. You must not be before getting an injection. The inject ion is usually given during the first 5 days after the start of a menstrual graham od or 6 weeks after delivery of a baby. Talk to your adapted physical education aide regarding the use of this medicine in children. Specia l care may be needed. These injections have been used in female children who hav e started having menstrual periods. What side effects may I notice from receiving this medicine? Side effects that you should report to your doctor or health rehab care assistant a s soon as possible: allergic reactions like skin rash, itching or hives, swelling of the face, li ps, or tongue breast tenderness or discharge breathing problems changes in vision depression feeling faint or lightheaded, falls fever pain in the abdomen, chest, groin, or leg problems with balance, talking, walking unusually weak or tired yellowing of the eyes or skin Side effects that usually do not require medical attention (report to your docto r or health rehab care assistant if they continue or are bothersome): acne fluid retention and swelling headache irregular periods, spotting, or absent periods temporary pain, itching, or skin reaction at site where injected weight gain What may interact with this medicine? Do not take this medicine with any of the following medications: bosentan This medicine may also interact with the following medications: aminoglutethimide antibiotics or medicines for infections, especially rifampin, rifabutin, rifa pentine, and griseofulvin aprepitant barbiturate medicines such as phenobarbital or primidone bexarotene carbamazepine medicines for seizures like ethotoin, felbamate, oxcarbazepine, phenytoin, to piramate modafinil Lacon's wort What if I miss a dose? Try not to miss a dose. You must get an injection once every 3 months to chantal zamorano control. If you cannot keep an appointment, call and reschedule it. If y ou wait longer than 13 weeks between Depo-Provera contraceptive injections or lo nger than 14 weeks between Depo-subQ Provera 104 injections, you could get pregn ant. Use another method for control if you miss your appointment. You may also need a test before receiving another injection. Where should I keep my medicine? This does not apply. The injection will be given to you by a health care profess carine. What should I tell my health care provider before I take this medicine? They need to know if you have any of these conditions: frequently drink alcohol asthma blood vessel disease or a history of a blood clot in the lungs or legs bone disease such as osteoporosis breast cancer diabetes eating disorder (anorexia nervosa or bulimia) high blood pressure HIV infection or AIDS kidney disease liver disease mental depression migraine seizures (convulsions) stroke tobacco smoker vaginal bleeding an unusual or allergic reaction to medroxyprogesterone, other hormones, medic consuelo, foods, dyes, or preservatives or trying to get breast-feeding What should I watch for while using this medicine? This drug does not protect you against HIV infection (AIDS) or other sexually tr ansmitted diseases. Use of this product may cause you to lose calcium from your bones. Loss of calci um may cause weak bones (osteoporosis). Only use this product for more than 2 ye ars if other forms of control are not right for you. The longer you use th is product for control the more likely you will be at risk for weak bones. Ask your health rehab care assistant how you can keep strong bones. You may have a change in bleeding pattern or irregular periods. Many females sto p having periods while taking this drug. If you have received your injections on time, your chance of being is v hilaria low. If you think you may be , see your health rehab care assistant as soon as possible. Tell your health rehab care assistant if you want to get within the next y ear. The effect of this medicine may last a long time after you get your last in jection. NOTE:This sheet is a summary. It may not cover all possible information. If you have questions about this medicine, talk to your doctor, pharmacist, or health c are provider. Copyright 2018 [employer] Calcium Supplements Calcium is a mineral that helps make strong bones and teeth. Most of the calcium in your body is in your bones. It takes almost half of your life (30 to 35 year s) for your bones to reach their maximum size and strength (peak bone mass). Whe n you are younger, taking in enough calcium helps you build strong bones. When y ou are older, getting enoughcalcium in your diethelps tolimit bone loss. Y our body cant make calcium, so you must get it from foods or supplements. Why use a supplement? You might need a supplement if any of the following is true for you: I dont eat dairy products or other foods that are high in calcium (such as kale, bok ginny, and calcium-fortified foods) 2 to 3 times a day. I am a woman past menopause. I am or . I don't do frequent weight-bearing exercises (such as walking, running, or we ightlifting). Suggested daily amount The daily recommended amount of calcium depends on many factors. This includes y ourage and if you are a man or a woman. Your healthcare provider can help you choose the right amount of calcium for you. If you take calcium Here are some tips to help you get the most from a calcium supplement: Choose calcium carbonate or calcium citrate. Choose calcium carbonate or calcium citrate. Calcium carbonate needs stomach acid in order to be absorbed. So it is best absorbed when taken with meals. Calc ium citrate is absorbed the same when taken with or without food. Check the label for elemental calcium. You need 1,000 to 1,500 mg a day. If you also take an iron supplement, take it a few hours before or after the calcium. Be aware that taking calcium interferes with the absorption of some bacteria- fighting medicines (antibiotics). Talk to your provider or pharmacist. Eat a balanced diet to get all the nutrients your body needs. Food sources of calcium Milk, yogurt, and cheese Certain green leafy vegetables, such as kale, bok ginny, and soto greens Fish with bones, such as canned salmon, mackerel, and sardines Tofu made with calcium carbonate (not the type of tofu called nagiri) Drinks that have calcium added, such as some orange juice and rice and soy dr inks Date Last Reviewed: 09/24/201619995255-9387 [employer]. [address] [place] [address], [place], [place] [address]. All rights reserved. This information is not intended as a substitute for pro fessional medical care. Always follow your healthcare professional's instruction s. documented in this encounter Progress Notes * Elsa Navarro RN - 12/01/2018 1:45 PM CDT Celestina Perea 42 year old. Present in clinic for refill of depo provera. Pt last injection 09/08/2018. Currently 12 weeks since last injection. Denies any h eadaches, blurred vision or dizziness and desires to continue. Order per [facility] DIRECTOR OF CLINICAL APPLICATIONS for depo provera 150mg IM.depo provera 150 mg IM in right upper quad gluteal muscle, lot #[id number], exp 01/2020. Er warnings reviewed with patient at this time. Instructed to take calcium 1200mg daily and wt bearing exercise. Due to re turn to clinic in 12 weeks for next depo provera injection. Next annual due 06/25. Verbalizes understanding denies any questions. documented in this encounter Plan of Treatment Care Team Description Date Type Specialty Rachel Varela PA-C [address] [place] [address] [phone] 01/20/2019 Office Visit [facility], [facility] 02/23/2019 Nurse Visit [facility] Health Maintenance Due Date Last Done Comments MAMMOGRAM 2017 DTaP,Tdap,and Td Vaccines 06/16/2019 Postponed from 1996 (1 - Tdap) (Patient Refused) INFLUENZA VACCINE 06/16/2019 Postponed from 12/25/2018 (Patient Refused) PAP SMEAR 08/21/2019 08/20/2016 PNEUMOCOCCAL 0-64 YEARS Aged Out No longer eligible based COMBINED SERIES on patient's age to complete this topic documented as of this encounter Results Not on filedocumented in this encounter Visit Diagnoses Diagnosis Depo-Provera contraceptive status - Primary Surveillance of other previously prescribed contraceptive method documented in this encounter Administered Medications Action Date Dose Rate Site Medication Order MAR Action 12/01/2018 2:26 PM CDT 150 mg Right Upper Quad. Gluteus medroxyPROGESTERone (DEPO-PROVERA) Given injection 150 mg 150 mg, Intramuscular, [id number], First dose on Lacey 12/01/18 at 1430, Until Discontinued, Routine documented in this encounter Insurance Type Payer Benefit Subscriber ID Effective Phone Address Plan / Dates Group Medicaid [employer] [place] xxxxxxxxx 2018-P PLAN - MANAGED MEDICAID STAR PLUS resent documented as of this encounter
--- OUTSIDE RECORDS SUMMARY | 2019-05-24 13:26 | XMS REPORT | Summary of Care ---
Author Author [facility] - [place] Organization [facility] Address Unknown Phone Unavailable Care Team Providers Care Outcomes Manager Name Role Phone Lidya Saavedra CNM PCP Reason for Visit * Reason Comments NURSE VISIT Encounter Details Care Team Description Date Type Department Carolina Thurman, SENIOR CLINICAL DATA COORDINATOR [address] [place] [id number] Visit, [facility] Nurse Depo-Provera contraceptive status (Primary Dx) 09/08/2018 Nurse Visit [facility]-[address] [address] Allergies No Known Allergiesdocumented as of this encounter (statuses as of 12/01/2018) Medications End Date Status Medication Sig Dispensed Refills Start Date Active norgestimate-ethinyl Take 1 tablet 1 Package 11 estradiol 0.25-35 mg-mcg by mouth 7 per tablet daily. Active norgestimate-ethinyl Take 1 tablet 1 Package 12 estradiol 0.25-35 mg-mcg by mouth 8 per tablet daily. Active ferrous sulfate (IRON, Take 1 tablet 90 tablet 4 FERROUS SULFATE,) 325 mg by mouth 9 (65 mg iron) daily. tabletIndications: Iron deficiency anemia due to chronic blood loss Status Hospital, Clinic, or Ordered Dose Route Frequency Start End Date Other Facility Date Administered Medication Ended medroxyPROGESTERone 150 mg IM [id number] 03/24/20 (DEPO-PROVERA) injection 18 9 150 mg documented as of this encounter (statuses as [...] OCP's - she will be sent to [facility] in [place] for presentation of new plan. Possible light [...] Signs Reading Time Taken Comments Vital Sign 112/70 09/08/2018 1:31 PM CDT Blood Pressure 91 09/08/2018 1:31 PM CDT Pulse 36.8 C (98.3 F) 09/08/2018 1:31 PM CDT Temperature 18 09/08/2018 1:31 PM CDT Respiratory Rate - - Oxygen Saturation - - Inhaled Oxygen Concentration 88 kg (194 lb) 09/08/2018 1:31 PM CDT Weight 152.4 cm (5') 09/08/2018 1:31 PM CDT Height 37.89 09/08/2018 1:31 PM CDT Body Mass Index documented in this encounter Patient Instructions * Patient Instructions* Elsa Navarro RN - 09/08/2018 1:45 PM CDT Calcium Supplements Calcium is a mineral that [...] orange juice and rice and soy dr guevara Date Last Reviewed: 09/24/201619992907-9602 [employer]. [address] [place] [address] 7. All rights reserved. This information is not intended as a substitute for pro fessional medical care. Always follow your healthcare professional's instruction s. Medroxyprogesterone injection [Contraceptive] Brand Names: Depo-Provera, Depo-subQ [...] delivery of a baby. Talk to your director biostatistics regarding the use of this medicine in children. Specia l care may be needed. These injections have been used in female children who hav e started having menstrual periods. What side effects may I notice from receiving this medicine? Side effects that you should report to your doctor or health child care coordinator a s soon as possible: allergic reactions [...] (report to your docto r or health child care coordinator if they continue or are bothersome): acne [...] ethotoin, felbamate, oxcarbazepine, phenytoin, to piramate modafinil Selina's wort What if I miss a dose? [...] risk for weak bones. Ask your health child care coordinator how you can keep strong bones. You may have a change in bleeding pattern or irregular periods. Many females sto p having periods while taking this drug. If you have received your injections on time, your chance of being is v hilaria low. If you think you may be , see your health child care coordinator as soon as possible. Tell your health child care coordinator if you want to get within the next y ear. The effect of this medicine may last a long time after you get your last in jection. NOTE:This sheet is a summary. It may not cover all possible information. If you have questions about this medicine, talk to your doctor, pharmacist, or health c are provider. Copyright 2018 [employer] documented in this encounter Plan of Treatment Care Team Description Date Type Specialty Rachel Varela PA-C [address] [place] [address] [phone] 01/20/2019 Office Visit [facility] [place] Health Maintenance Due Date Last Done Comments [...] Dose Rate Site Medication Order MAR Action 09/08/2018 2:05 PM CDT 150 mg Left Upper Quad. Gluteus medroxyPROGESTERone (DEPO-PROVERA) Given injection 150 mg 150 mg, Intramuscular, [id number], 3 doses, First dose on Lacey 03/24/18 at 1345, Last dose on [place] 09/08/18 at 1345, Routine 150 mg Right Upper Quad. Gluteus Given 06/16/2018 1:58 PM NEUROLOGICAL SURGEON 150 mg Left Upper Quad. Gluteus Given 03/24/2018 1:53 PM NEUROLOGICAL SURGEON documented in this encounter Insurance Type Payer Benefit Subscriber ID Effective Phone Address Plan / Dates Group Medicaid [employer]HC [place] xxxxxxxxx 2018-P PLAN - MANAGED MEDICAID STAR PLUS resent documented as of this encounter
--- OUTSIDE RECORDS SUMMARY | 2019-05-24 13:27 | XMS REPORT ---
Author Author Admin, [place] Organization Unknown Address Unknown Phone Unavailable PROBLEMS Condition Status Date Provider Notes Viral URI completed - Lisbet Geraldo Abdominal pain active Lisbet Geraldo Viral URI [...] disorder active Lisbet Geraldo Std screening active Lisbet Geraldo Annual exam active Lisbet Geraldo Arthritis of spine active Rakan Memo bucio, confirmed on xray, has scoliosis convex to right BMI 32.0-32.9 active Rakan Hampton Obesity active Rakan Hampton Hypertension active Lisbet Geraldo Scoliosis active Lisbet Geraldo Lower back pain active Lisbet Geraldo ENCOUNTERS Date Type Provider Location Encounter Diagnosis - Ambulatory Encounter Lisbet Geraldo Frausto Geraldo [facility] UNK - Ambulatory Encounter Lisbet Geraldo Lisbet Lorenzanaaidee Conde [facility] Viral URI - Ambulatory Encounter Fax Status [facility] UNK - Ambulatory Encounter [facility] - [facility]ulatory Encounter Fax Status [facility] - Ambulatory Encounter Fax Status [facility] - Ambulatory Encounter Fax Status [facility]K - Ambulatory Encounter Fax Status [facility] UNK - Ambulatory Encounter Lisbet Geraldo Lorenzanaome [facility] En[facility] Lisbet Geraldo Lisbet Lorenzanaome [facility] UNK - Ambulatory Encounter Lisbet Geraldo Lisbet Geraldo [facility] UNK - Ambulatory Encounter Fax Status [facility] - Ambulatory Encounter Fax Status [facility] UNK - Ambulatory Encounter Lisbet Geraldo Lisbte Lorenzanaome [facility] UNK - Ambulatory Encounter Lisbet Geraldo Lisbet Lorenzanaome [facility] UNK - Ambulatory Encounter Lisbet Geraldo Lisbet Lorenzanaome Elizabeth Newman [facility] Abdominal pain - Ambulatory Encounter Lisbet Geraldo Lisbet Lorenzanaome [facility] UNK - Ambulatory Encounter Lisbet Geraldo Lisbet Lorenzanaome Jenise Chacon Conde [facility] Practice UNK - Ambulatory Encounter [facility] - [facility]ulatory Encounter Lisbet Geraldo Lisbet Lorenzanaaidee [facility] - Ambulatory Encounter Lisbet Geraldo Lisbet Geraldo [facility] UNK - Ambulatory Encounter Lisbet Geraldo Lisbet Geraldo Cantrell [facility] Practice UNK - Ambulatory Encounter Lisbet Geraldo Lisbet Geraldo [facility] UNK - Ambulatory Encounter Lisbet Geraldo Lisbet Lorenzanaaidee Samuel Darian [facility] Cerumen impaction, leftViral URI - Ambulatory Encounter Lisbet Geraldo [facility]eraldo [facility] UNK - Ambulatory Encounter Lisbet Geraldo Lisbet Geraldo [facility] UNK - Ambulatory Encounter Lisbet Geraldo Lisbet Geraldo [place] [facility] UNK - Ambulatory Encounter Lisbet Geraldo Lisbet Lorenzanaome Roslyn Oliveros [facility] AnemiaCough - Ambulatory Encounter Lisbet Geraldo Lisbet Geraldo [facility] UNK - Ambulatory Encounter Yolanda Morgan [facility] Practice UNK - Ambulatory Encounter Yolanda Morgan [facility] Practice UNK - Ambulatory Encounter Lisbet Geraldo Lisbet Geraldo [facility] UNK - Ambulatory Encounter Lisbet Geraldo Lisbet Dunaway Yolanda Morgan [facility] Practice Chest wall pain - Ambulatory Encounter Lisbet Geraldo Chow [facility] UNK - Ambulatory Encounter Lisbet Geraldo Chow [facility] UNK - Ambulatory Encounter Lisbet Geraldo Chow Lizzie Darian Maria Luisa Cantrell [facility] UNK - Ambulatory Encounter Lisbet Geraldo Chow [facility] UNK - Ambulatory Encounter Lisbet Geraldo Chow [facility] UNK - Ambulatory Encounter Lisbet Geraldo Chow Maria Luisa Cantrell [facility] Practice Allergic rhinitisUrinary tract infectionViral URI - Ambulatory Encounter Lisbet Geraldo Chow [facility] UNK - Ambulatory Encounter Lisbet Geraldo Chow Jenna Diego [facility] UNK - Ambulatory Encounter Lisbet Geraldo Chow [facility] UNK - Ambulatory Encounter Lisbet Geraldo [facility] Upper respiratory infection - Ambulatory Encounter Fax Status [facility] [...] UNK - Ambulatory Encounter Lisbet Geraldo Chow [facility] UNK - Ambulatory Encounter Lisbet Geraldo Duffy Christopher Roslyn Davie Farmer Ginette Newman [facility] Practice UNK - Ambulatory Encounter Lisbet [facility]eraldo [facility] - Ambulatory Encounter Lisbet Geraldo Chow [facility] UNK - Ambulatory Encounter Lisbet Geraldo Chow Vick Latif [facility] Practice UNK - Ambulatory Encounter Lisbet Geraldo Chow [facility] UNK - Ambulatory Encounter Lisbet Geraldo Chow [facility] Practice UNK - Ambulatory Encounter Lisbet Geraldo Chow [facility] Practice UNK - Ambulatory Encounter Lisbet Geraldo Chow [facility] UNK - Ambulatory Encounter Lisbet Geraldo Chow [facility] UNK - Ambulatory Encounter Lisbet Geraldo Chow Vick Turner Ginette Newman [facility] Cerumen impaction, bilateralNeck pain - Ambulatory Encounter Maqruise Saucedo [facility] UNK - Ambulatory Encounter Lisbet Geraldo Chow [facility] Practice UNK - Ambulatory Encounter Lisbet Geraldo Chow [facility] UNK - Ambulatory Encounter Lisbet Geraldo Chow [facility] UNK - Ambulatory Encounter Lisbet Geraldo Chow Lizzie Darian Latif [facility] Pharyngitis, acute - Ambulatory Encounter [facility] - Ambulatory Encounter Fax Status [facility] UNK - Ambulatory Encounter Fax Status [facility] UNK - Ambulatory Encounter Lisbet Chow Clive Jeffries [facility] Pelvic mass - Ambulatory Encounter Fax Status [facility] UNK - Ambulatory Encounter Fax Status [facility] UNK - Ambulatory Encounter Fax Status [facility] UNK - Ambulatory Encounter Lisbet Chow [facility] UNK - Ambulatory Encounter Lisbet Chow Link[facility] UNK - Ambulatory Encounter Lisbet Chow [facility] UNK - Ambulatory Encounter Fax Status [facility] UNK - Ambulatory Encounter Fax Status [facility] UNK - Ambulatory Encounter Fax Status [facility] UNK - Ambulatory Encounter Lizzie Farmer Lisbet Chow Mina Conde [facility] UNK - Ambulatory Encounter Scot Ladd [facility] UNK - Ambulatory Encounter Scot Ladd [facility] UNK - Ambulatory Encounter Lisbet Chow [facility] UNK - Ambulatory Encounter Lisbet Chow Roslyn Jeffries Ginette Pool FaQuazia Reynaldo [facility] Lower back pain - Ambulatory Encounter Carolina Tomas Med[facility] UNK - Ambulatory Encounter Carolina Tomas [facility] UNK - Ambulatory Encounter Carolina Tomas MedAdherence [facility] UNK - Ambulatory Encounter Carolina Tomas MedAdherence [facility] UNK - Ambulatory Encounter Carolina Tomas [facility]Ad[facility] UNK - Ambulatory Encounter Carolina Tomas [facility] UNK - Ambulatory Encounter Lisbet Geraldo Chow [facility] UNK - Ambulatory Encounter Lisbet Geraldo [facility]usto [facility]eral[facility] - Ambulatory Encounter Lisbet Geraldo Chow [facility] UNK - Ambulatory Encounter Lisbet Geraldo Jacobs [facility] Acute bronchitisLeg pain, right - Ambulatory Encounter Carolina Tomas [facility] UNK - Ambulatory Encounter Carolina Tomas [facility] UNK - Ambulatory Encounter [place] [facility] [facility] Vick Turner [facility] UNK - Ambulatory Encounter Vick Turner [facility] UNK - Ambulatory Encounter Lisbet Geraldo Frausto [facility]eraldo [facility] - [facility]ulatory Encounter Lisbet Geraldo Chow [facility] UNK - Ambulatory Encounter Lisbet Chow [facility] UNK - Ambulatory Encounter Lisbet Walters [facility] UTI (urinary tract infection) - Ambulatory Encounter Lisbet Chow [facility] UNK - Ambulatory Encounter Lisbet Chow [facility] - Ambulatory Encounter Scot Ladd [facility] UNK - Ambulatory Encounter Scot Ladd [facility] UNK - Ambulatory Encounter Lisbet Frausto Geraldo [facility] UNK - Ambulatory Encounter Lisbet Chow [facility] Annual examStd screeningScreening for lipid disorderScreening for diabetes mellitus - Ambulatory Encounter Rakan Hampton [facility] UNK - Ambulatory Encounter Rakan Hampton [facility] UNK - Ambulatory Encounter Ezequiel Hampton [facility] ObesityBMI 32.0-32.9Arthritis of spine - Ambulatory Encounter Nahed Dalton [facility] UNK - Ambulatory Encounter Nahed Krystle [facility] UNK - Ambulatory [facility] - Ambulatory Encounter Dixie Ray [facility] UNK - Ambulatory Encounter Rakan Hernandez [facility] UNK - Ambulatory Encounter Lisbet Frausto Geraldo [facility] - Ambulatory Encounter Elaina Frausto [facility] Dixie Jacobs [facility] Lower back painScoliosisHypertension - Ambulatory Encounter Nahed Dalton [facility] - Ambulatory Encounter Nahed Dalton [facility] - Ambulatory Encounter Ezequiel Javi [facility] VITAL SIGNS No Information Available ALLERGIES Allergy Name Onset Date Reaction Criticality Status CODEINE Nause and rash Unable to assess criticality active REASON FOR REFERRAL Start Date - End Date 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 - External - CT Scan - X-RAY RESULTS Date [...] X10E3/UL [facility] 3.4-10.8 urine culture No growth [facility] glucose, urine, semiquantitative negative Lisbet Geraldo " bilirubin, urine negative Lisbet Geraldo " ketones, urine, by test strip negative Lisbet Geraldo " blood in urine (hemoglobin) by dipstick 1+ Lisbet Geraldo " urobilinogen, urine, semiquantitative (dipstick) negative Lisbet Geraldo " nitrite, urine, semiquantitative negative Lisbet Geraldo " appearance, urine clear Lisbet Geraldo " urine color yellow Lisbet Geraldo " protein, urine, semiquantitative (dipstick) 1+ Lisbet Geraldo " leukocyte esterase, urine, by dipstick 1+ Lisbet Geraldo thyroid stimulating hormone, serum 2.610 u[iU]/mL [facility]Logic [...] mean corpuscular hemoglobin concentration, RBC 31.9 G/DL [facility] 31.5-35.7 " mean corpuscular hemoglobin, RBC 26.9 pg [facility] 26.6-33.0 " mean corpuscular volume, RBC 84 fL [facility] 79-97 " hematocrit, blood 29.8 % [facility] 34.0-46.6 Low " hemoglobin, blood 9.5 g/dL [facility] 11.1-15.9 Low " erythrocyte (RBC) count 3.53 X10E6/UL [facility] 3.77-5.28 Low " leukocyte count, blood 8.7 X10E3/UL [facility] 3.4-10.8 HISTORY OF IMMUNIZATIONS Date Vaccine Dose Lot Number Status Fluzone Quadrivalent IM PF 0.5 ML [facility] [address]-56 [employer] 0.5 mL [id number] completed HISTORY OF MEDICATION USE Medication Instructions Dates Provider Comments DELSYM 30 MG/5ML ORAL SUSPENSION EXTENDED RELEASE 5 ml Every 6 hrs As Needed cough Lisbet Geraldo RANITIDINE HCL 150 MG ORAL TABLET 1 by mouth twice a day Lisbet Lorenzanaome ACETIC ACID 2 % OTIC SOLUTION 3 DROPS per ear Every 6-8 hrs for 5 days Lisbet Lorenzanaome CLARITIN 10 MG ORAL TABLET 1 by mouth every day Lisbet Lorenzanaome TESSALON PERLES 100 MG ORAL CAPSULE 1 by mouth 3 times a day as needed for cough Lisbet Chow COLD MULTI-SYMPTOM DAYTIME 10-5-325 MG ORAL TABLET use as directed Lisbet Chow ZYRTEC ALLERGY 10 MG ORAL TABLET 1 by mouth every day Lisbet Lorenzanaome FLONASE ALLERGY RELIEF 50 MCG/ACT NASAL SUSPENSION 2 sprays each nostril every day Lisbet Lorenzanaome AUGMENTIN 875-125 MG ORAL TABLET 1 by mouth twice a day Lisbet Chow PREDNISONE 20 MG ORAL TABLET Take 1 tab By Mouth BID x 2 days; then 1 tab x 4 days Lisbet Lorenzanaome AUGMENTIN 875-125 MG ORAL TABLET 1 by mouth twice a day Lisbet Lorenzanaome FERROUS SULFATE 325 (65 FE) MG ORAL [...] 1 TABLET BY MOUTH EVERY DAY Lisbet Geraldo SOCIAL HISTORY Date Observation Value Provider Exercise Program Referral T Carol Conde " Weight Management Counseling Provided T Carol Conde " Nutrition intervention T Carol Conde " drug use, illicit Never Carol S Conde " alcohol use Never Carol S Conde " social history reviewed E&M reviewed today Carol S Conde " sexual orientation Heterosexual Carol S Conde " assessment of health literacy ([facility] 2014 Standards, 3C10) Adequate Carol S Conde " passive cigarette smoke exposure No Carol S Conde " smoking status never smoker Carol S Conde drug use, illicit Never Ginette Pool " alcohol use Never Ginette Pool " social history reviewed E&M reviewed today Ginette Pool " assessment of health literacy ([facility] 2014 Standards, 3C10) Adequate Ginette Pool " [...] Luisa Cantrell " assessment of health literacy ([facility] 2014 Standards, 3C10) Adequate Maria Luisa Cantrell [...] social history reviewed E&M reviewed today Lizzie Rankinierrez " sexual orientation Heterosexual Lizzie Rankinierrez " assessment of health literacy ([facility] 2014 Standards, 3C10) Adequate Lizzie Farmer " passive cigarette smoke exposure No Lizzie Farmer " smoking status never smoker Lizzie Rankinierrez " Exercise Program Referral T Lizzie Farmer " Weight Management Counseling Provided T Lizzie Farmer " Nutrition intervention T Lizzie Farmer drug use, illicit Never Jenise Oliveros " alcohol use Never Jenise Oliveros " social history reviewed E&M reviewed today Jenise Oliveros " sexual orientation Heterosexual Jenise Oliveros " assessment of health literacy ([facility] 2014 Standards, 3C10) Adequate Jenise Oliveros " passive cigarette smoke exposure No Jenise Oliveros " smoking status never smoker Jenise Oliveros " Exercise Program Referral T Jenise Oliveros " Weight Management Counseling Provided T Jenise Oliveros " Nutrition intervention T Jenise Oliveros drug use, illicit Never Dixie Gume " alcohol use Never Dixie Gume " social history reviewed E&M reviewed today Dixie Dunaway " sexual orientation Heterosexual Dixie Gume " assessment of health literacy ([facility] 2014 Standards, 3C10) Adequate Dixie Dunaway " passive cigarette smoke exposure No Dixie Dunaway " smoking status never smoker Dixie Dunaway " Exercise Program Referral T Dixie Gume " Weight Management Counseling Provided T Dixie [...] Lizzie Farmer " assessment of health literacy ([facility] 2014 Standards, 3C10) Adequate Lizzie Farmer " passive cigarette smoke exposure No Lizzie Farmer " smoking status never smoker Lizzie Farmer assessment of health literacy ([facility] 2014 Standards, 3C10) Adequate Maria Luisa Cantrell " sexual orientation Heterosexual Maria Luisa Cantrell " passive cigarette smoke exposure No Maria Luisa Cantrell " drug use, illicit Never Maria Luisa Cantrell " alcohol use Never Maria Luisa Cantrell " smoking status never smoker Maria Luisasunita Cantrell " social history reviewed E&M reviewed today Maria Luisa Cantrell Exercise Program Referral T Lisbet Geraldo " Weight Management Counseling Provided T Lisbet Geraldo " Nutrition intervention T Lisbet Geraldo " drug use, illicit Never Meliza Combs " alcohol use Never Meliza Combs " social history reviewed E&M reviewed today Meliza Cobms " sexual orientation Heterosexual Meliza Combs " assessment of health literacy ([facility] 2014 Standards, 3C10) Adequate Meliza Combs " [...] Lisbet Geraldo drug use, illicit Never Lizzie Farmer " alcohol use Never Lizzie Farmer " social history reviewed E&M reviewed today Lizzie Farmer " sexual orientation Heterosexual Lizzie Farmer " assessment of health literacy ([facility] 2014 Standards, 3C10) Adequate Lizzie Farmer " passive cigarette smoke exposure No Lizzie Lorenzorez " smoking status never smoker Lizzie Farmer " sexual orientation Heterosexual Marcela Latif " assessment of health literacy ([facility] 2014 Standards, 3C10) Adequate Marcela Latif " [...] Ginette Pool " assessment of health literacy ([facility] 2014 Standards, 3C10) Adequate Ginette Pool " passive cigarette smoke exposure No Ginette Pool " smoking status never smoker Ginette Pool drug use, illicit Never Lizzie Farmer " alcohol use Never Lizzie Farmer " social history reviewed E&M reviewed today Lizzie Lorenzorez " Exercise Program Referral T Lisbet Geraldo " Weight Management Counseling Provided T Lisbet Geraldo " Nutrition intervention T Lisbet Geraldo " sexual orientation Heterosexual Marcela Latif " assessment of health literacy ([facility] 2014 Standards, 3C10) Adequate Marcela Latif " [...] Ginette Pool " assessment of health literacy ([facility] 2014 Standards, 3C10) Adequate Ginette Pool " [...] Susana Wright " assessment of health literacy ([facility] 2014 Standards, 3C10) Adequate Susana Wright social history reviewed E&M reviewed today Ellen Dalyniz " passive cigarette smoke exposure No Ellen Dalyniz " smoking status never smoker Ellen Dalyniz " assessment of health literacy ([facility] 2014 Standards, 3C10) Adequate Ellen Walters " Exercise Program Referral T Ellen Walters " Weight Management Counseling Provided T Ellen Walters " Nutrition intervention T Ellen Walters Exercise Program Referral T Lisbet Geraldo " Weight Management Counseling Provided T Lisbet Geraldo " Nutrition intervention T Lisbet Geraldo social history reviewed E&M reviewed today Deya Navarro " sexual orientation Heterosexual Deyasarah Ramirezvez " passive cigarette smoke exposure No Deya Navarro " smoking status never smoker Deyasarah Ramirezvez " assessment of health literacy ([facility] 2014 Standards, 3C10) Adequate Deya Navarro " sexual orientation Heterosexual Dixie Ray " passive cigarette smoke exposure No Dixie Ray " smoking status never smoker Dixie Ray " assessment of health literacy ([facility] 2014 Standards, 3C10) Adequate Dixie Lemavez " Exercise Program Referral T Dixie Ray " Weight Management Counseling Provided T Dixie Ray " Nutrition intervention T Dixie Lemavez " social history reviewed E&M reviewed today Dixie Schillingz sex at Female Isabel Moe " 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 No Isabel Moe " passive cigarette smoke exposure No Everoctavio Moe " smoking status never smoker Lucianoearlinecriselda Abhi " assessment of health literacy ([facility] 2014 Standards, 3C10) Adequate Isabel Moe FUNCTIONAL STATUS No Information Available MENTAL STATUS Date Observation Value Provider Generalized Anxiety Disorder Questionnaire - Question 2 0 Carol Conde " Generalized Anxiety Disorder Questionnaire - Question 1 0 Carol Conde assessment of mood and affect E&M no depression, anxiety, or agitation Lisbet Geraldo " mental status examination: orientation E&M oriented to time, place, and person Lisbet Geraldo " Generalized Anxiety Disorder Questionnaire - Question 2 0 Ginette Newman " Generalized Anxiety Disorder Questionnaire - Question 1 0 Ginette Pool assessment of mood and affect E&M no [...] and person Lisbet Geraldo " assessment of judgment and insight E&M [...] no depression, anxiety, or agitation Lisbet Geraldo assessment of judgment and insight E&M intact Lisbet Geraldo " assessment of mood and affect E&M no depression, anxiety, or agitation Lisbet Geraldo Generalized Anxiety Disorder Questionnaire - [...] no depression, anxiety, or agitation Lisbet Geraldo assessment of judgment and insight E&M intact Lisbet Geraldo " assessment of mood and affect E&M no depression, anxiety, or agitation Lisbet Geraldo Generalized Anxiety Disorder Questionnaire - Question 2 0 Ginette Pool " Generalized Anxiety Disorder Questionnaire - Question 1 0 Ginette Pool Generalized Anxiety Disorder Questionnaire - Question 2 0 Marcela Latif " Generalized Anxiety Disorder Questionnaire - Question 1 0 Marcela Latif assessment of judgment and insight E&M intact Lisbet Geraldo " assessment of mood and affect E&M no depression, anxiety, or agitation Lisbet [facility] " Generalized Anxiety Disorder Questionnaire - [...] of judgment and insight E&M intact Rakan Hmapton " mental status examination: orientation E&M oriented to time, place, and person Rakan Hampton " assessment of mood and affect E&M no depression, anxiety, or agitation Rakan Hampton " Generalized Anxiety Disorder Questionnaire - Question 2 0 Dixie Ray " Generalized Anxiety Disorder Questionnaire - Question 1 0 Dixie Ray assessment of judgment and insight E&M intact Lisbet Geraldo " mental status examination: orientation E&M oriented to time, place, and person Lisbet Geraldo " assessment of mood and affect E&M no depression, anxiety, or agitation Lisbet Geraldo " Generalized Anxiety Disorder Questionnaire - Question 2 0 Isabel Abhi " Generalized Anxiety Disorder Questionnaire - Question 1 0 Bingcriselda Moe MEDICAL EQUIPMENT No Information Available FAMILY [...] CBC With Differential/Platelet - - - - - Ofc Vst, Est Level III Est Patient Exp Problem - 79114 Vaccines Ordered - Print Consent/Declination Forms Urinalysis - Dip only - In House Est Patient Detailed - 31158 Est Patient Exp Problem - 45929 Ofc Vst, Est Level III Est Patient Exp Problem - 82852 Est Patient Detailed - 57629 Ofc Vst, Est Level III Ofc Vst, Est Level III Rapid Strep - In House Rapid Flu - In House Est Patient Detailed - 17744 Est Patient Detailed - 05666 IM or SQ Injection Injection, ketorolac tromethamine (toradol), per 15 mg IM or SQ Injection Injection, dexamethasone sodium phosphate, 1mg Est Patient Detailed - 93955 IM or SQ Injection Injection, ketorolac tromethamine (toradol), per 15 mg Est Patient Detailed - 04694 Ear Irrigation Est Patient Detailed - 03021 IM or SQ Injection Injection, dexamethasone sodium phosphate, 1mg Urinalysis - Dip only - In House Rapid Strep - In House Est Patient Exp Problem - 01605 Est Patient Detailed - 09656 Est Patient Exp Problem - 33995 Est Patient Well Exam (18 - 39 Yrs) - 74725 Est Patient Exp Problem - 50590 New Patient Exp Problem - 70937 HISTORY OF PROCEDURES Procedure Date Procedure Name Provider Procedure Notes Status Vaccines Ordered - Print Consent/Declination Forms Lisbet Chow completed Urinalysis - Dip only - In House Lisbet Geraldo completed Rapid Strep - In House Lisbet Geraldo completed Rapid Flu - In House Lisbet Geraldo completed IM or SQ Injection Lisbet Geraldo completed Injection, ketorolac tromethamine (toradol), per 15 mg Lisbet Geraldo ND: [id number]. completed IM or SQ Injection Lisbet Geraldo completed Injection, dexamethasone sodium phosphate, 1mg Lisbet Geraldo NDC: [id number]. completed IM or SQ Injection Lisbet Geraldo completed Injection, ketorolac tromethamine (toradol), per 15 mg Lisbet Geraldo NDC: [id number]. completed Ear Irrigation Lisbet Geraldo completed IM or SQ Injection Lisbet Geraldo 4mg IM Dexamethasone completed Injection, dexamethasone sodium phosphate, 1mg Lisbet Geraldo NDC: [id number]. completed Urinalysis - Dip only - In House Lisbet Geraldo completed Rapid Strep - In House Lisbet Geraldo completed GOALS No Information Available HEALTH CONCERNS No Information Available
--- OUTSIDE RECORDS SUMMARY | 2019-05-24 13:28 | XMS REPORT ---
Author Author Admin, [place] Organization Unknown Address Unknown Phone Unavailable PROBLEMS Condition Status Date Provider Notes Screening exam for breast cancer active Lisbte Geraldo Galactorrhea active Lisbet Geraldo Prolactinoma active Lisbet Geraldo Conscious sedation medical clearance exam active Lisbet Geraldo Viral URI completed - Lisbet Geraldo Abdominal [...] active Lisbet Geraldo Arthritis of spine active Janetnasir Memo thorasic, confirmed on xray, has scoliosis convex to right BMI 32.0-32.9 active Rakan Hampton Obesity active Rakan Hampton Hypertension active Lisbet Geraldo Scoliosis active Lisbet Geraldo Lower back pain active Lisbet Geraldo ENCOUNTERS Date Type Provider Location Encounter Diagnosis - Ambulatory Encounter Lisbet Geraldo Lisbet Geraldo [facility] UNK - Ambulatory Encounter Lisbet Geraldo Lisbet Geraldo [facility] UNK - Ambulatory Encounter Lisbet Geraldo Lisbet Geraldo [facility] UNK - Ambulatory Encounter Lisbet Geraldo Lisbet Geraldo [facility] UNK - Ambulatory Encounter [facility] - Ambulatory Encounter Lisbet Geraldo Lisbet Tomas MedAdherence [facility] UNK - Ambulatory Encounter Lisbet Geraldo Lisbet Geraldo [facility] UNK - Ambulatory Encounter Lisbet Geraldo Combs [facility] Conscious sedation medical clearance examProlactinomaGalactorrheaScreening exam for breast cancer - Ambulatory Encounter Lisbet Geraldo Lisbet Lorenzanaome [facility] UNK - Ambulatory Encounter Lisbet Geraldo Lisbet Lorenzanaome [facility] UNK - Ambulatory Encounter Lisbet Geraldo Lisbet Lorenzanaome [facility] UNK - Ambulatory Encounter Lisbet Geraldo Lisbet Chow [facility] UNK - Ambulatory Encounter Lisbet Geraldo Chow [facility] UNK - Ambulatory Encounter Lisbet Geraldo [facility] - [facility]ulatory Encounter Lisbet Chow [facility] UNK - Ambulatory Encounter Lisbet Geraldo Chow Carol Conde [facility] Viral URI - Ambulatory Encounter [...] UNK - Ambulatory Encounter Fax Status [facility] UNK - Ambulatory Encounter Lisbet Geraldo Chow [facility] UNK - Ambulatory Encounter Lisebt Geraldo Lorenzanaome [facility]Log[facility] UNK - Ambulatory Encounter Lisbet Geraldo Lorenzanaome [facility] UNK - Ambulatory Encounter Fax Status [facility] UNK - Ambulatory Encounter Fax Status [facility] UNK - Ambulatory Encounter Lisbet Geraldo Lorenzanaome [facility] UNK - Ambulatory Encounter Lisbet Geraldo Chow [facility] UNK - Ambulatory Encounter Lisbet Geraldo Newman [facility] Abdominal pain - Ambulatory Encounter Lisbet Geraldo Chow [facility] UNK - Ambulatory Encounter Lisbet Geraldo Lisbet Chacon Conde [facility] UNK - Ambulatory [facility]counter [facility] - [facility]ulatory Encounter Lisbet Geraldo Lisbet Chow Bri MurphyAdherence [facility] UNK - Ambulatory Encounter Lisbet Geraldo Lisbet Chow [facility] UNK - Ambulatory Encounter Lisbet Geraldo Lisbet Chow Maria Luisa Cantrell [facility] UNK - Ambulatory Encounter Lisbet Geraldo Lisbet Chow [facility] UNK - Ambulatory Encounter Lisbet Geraldo Lisbet Chow Lizzie Rankinierrez [facility] Cerumen impaction, leftViral URI - Ambulatory Encounter Lisbet Geraldo Lisbet Chow [employer] UNK - Ambulatory Encounter Lisbet Geraldo Lisbet Chow [employer] UNK - Ambulatory Encounter Lisbet Geraldo Lisbet Chow [facility] UNK - Ambulatory Encounter Lisbet Geraldo Lisbet Oliveros [facility] AnemiaCough - Ambulatory Encounter Lisbet Geraldo Lisbet Chow [facility] UNK - Ambulatory Encounter Yolanda Morgan [facility] UNK - Ambulatory Encounter Yolanda Morgan [facility] UNK - Ambulatory Encounter Lisbet Geraldo Lisbet Chow [facility] UNK - Ambulatory Encounter Lisbet Geraldo Dunaway Yolanda Morgan [facility] Chest wall pain - Ambulatory Encounter Lisbet Geraldoaidee Chow [facility] UNK - Ambulatory Encounter Lisbet Geraldo Chow [facility] UNK - Ambulatory Encounter Lisbet Geraldo Chow Lizziejena Farmer Maria Luisa [facility] UNK - Ambulatory Encounter Lisbet Geraldo Chow [facility] UNK - Ambulatory Encounter Lisbet Geraldo Chow [facility] UNK - Ambulatory Encounter Lisbet Geraldo Glass [facility] Allergic rhinitisUrinary tract infectionViral URI - Ambulatory Encounter Lisbet Geraldo Chow [employer] UNK - Ambulatory Encounter Lisbet Geraldo Chow Jenna Diego [facility] UNK - Ambulatory Encounter Lisbet Geraldo Chow [facility] UNK - Ambulatory Encounter Lisbet Geraldo [facility] Upper respiratory infection - Ambulatory Encounter Fax [...] UNK - Ambulatory Encounter Lisbet Geraldo Chow [facility] UNK - Ambulatory Encounter Lisbet Geraldo Chow Clive Mcgowan Davie Farmer Ginette Newman [facility] UNK - Ambulatory Encounter Lisbet Geraldo Chow [employer] [facility] UNK - Ambulatory Encounter Lisbet Geraldo Chow [facility] UNK - Ambulatory Encounter Lisbet Geraldo Chow Vick Latif [facility] UNK - Ambulatory Encounter Lisbet Geraldo Chow [facility] UNK - Ambulatory Encounter Lisbet Geraldo Chow [facility] - Ambulatory Encounter Lisbet Geraldo Chow [facility] UNK - Ambulatory Encounter Lisbet Geraldo Chow [facility] UNK - Ambulatory Encounter Lisbet Geraldo Chow [facility] UNK - Ambulatory Encounter Lisbet Geraldo Chow Vick Peng [facility] Cerumen impaction, bilateralNeck pain - Ambulatory Encounter Marquise Saucedo [facility] UNK - Ambulatory Encounter Lisbet Geraldo Chow [facility] UNK - Ambulatory Encounter Lisbet Geraldo Chow [facility] UNK - Ambulatory Encounter Lisbet Geraldo Chow [facility] UNK - Ambulatory Encounter Lisbet Geraldo Chow Lizziejena Latif [facility] Pharyngitis, acute - Ambulatory Encounter Fax Status LinkLogic [facility] UNK - Ambulatory Encounter Fax Status [facility] UNK - Ambulatory Encounter Fax Status [facility] UNK - Ambulatory Encounter Lisbet Chow Clive Jeffries [facility] Pelvic mass - Ambulatory Encounter Fax Status [facility] UNK - Ambulatory Encounter Fax Status [facility] UNK - Ambulatory Encounter Fax Status [facility] UNK - Ambulatory Encounter Lisbet Chow [facility] UNK - Ambulatory Encounter Lisbet Chow [employer] UNK - Ambulatory Encounter Lisbet Geraldo Chow [facility] UNK - Ambulatory Encounter Fax Status [facility]Logic [facility] UNK - Ambulatory Encounter F[facility] - Ambulatory Encounter Fax Status [facility] UNK - Ambulatory Encounter Lizzie Frausto Geraldo Chow [facility] UNK - Ambulatory Encounter Scot Ladd [facility] UNK - Ambulatory Encounter Scot Ladd [facility] UNK - Ambulatory Encounter Lisbet Geraldo Chow [facility] UNK - Ambulatory Encounter Lisbet Geraldo Chow [place] Davie Rodriguez Jeffries Ginette Pool FaQurodo Jacobs [facility] Lower back pain - Ambulatory Encounter [facility] UNK - Ambulatory Encounter Carolina Tomas [facility] - Ambulatory Encounter Carolina Tomas MedAdherence [facility] UNK - Ambulatory Encounter Carolina Tomas MedAdherence [facility] UNK - Ambulatory Encounter Carolina Tomas MedAdherence [facility] UNK - Ambulatory Encounter Carolina Tomas MedAdherence [facility] UNK - Ambulatory Encounter Lisbet Frausto Geraldo [facility] UNK - Ambulatory Encounter Lisbet Frausto [facility] - Ambulatory Encounter Lisbet Frausto Geraldo [facility] UNK - Ambulatory Encounter Lisbet Jacobs [facility] Acute bronchitisLeg pain, right - Ambulatory Encounter Carolina Tomas MedAdherence [facility] UNK - Ambulatory Encounter Carolina Tomas MedAdherence [facility] UNK - Ambulatory Encounter Carolina Tomas MedAdherence [facility] UNK - Ambulatory Encounter Vick Turner [facility] UNK - Ambulatory Encounter Vick Turner [facility] UNK - Ambulatory Encounter Lisbet Frausto [facility] - Ambulatory Encounter Lisbet Geraldo Frausto Geraldo [facility] UNK - Ambulatory Encounter Lisbet Chow [facility] UNK - Ambulatory Encounter Lisbet Walters [facility] UTI (urinary tract infection) - Ambulatory Encounter Lisbet Chow [facility] UNK - Ambulatory Encounter Lisbet Chow [facility] UNK - Ambulatory Encounter Scot Ladd [facility] UNK - Ambulatory Encounter Scot Ladd [facility] UNK - Ambulatory Encounter Lisbet Frausto Geraldo [facility] UNK - Ambulatory Encounter Lisbet Chow Jenna Falk [facility] Annual examStd screeningScreening for lipid disorderScreening for diabetes mellitus - Ambulatory Encounter Rakan Hampton [facility] UNK - Ambulatory Encounter Rakan Herrerabannerseema [facility] UNK - Ambulatory Encounter Ezequiel Herrerabannerseema [facility] ObesityBMI 32.0-32.9Arthritis of spine - Ambulatory Encounter Nahed Dalton [facility] UNK - Ambulatory Encounter Nahed Dalton [facility] UNK - Ambulatory Encounter Elaina Alejandro [facility] UNK - Ambulatory Encounter Dixie Ray [facility] UNK - Ambulatory Encounter Rakan Hampton [facility] UNK - Ambulatory Encounter Lisbet Chwo [facility] UNK - Ambulatory Encounter Elaina Frausto [facility] Dixie Jacobs [facility] Lower back painScoliosisHypertension - Ambulatory Encounter Nahed Dalton [facility] UNK - Ambulatory Encounter Nahed Dalton [facility] UNK - Ambulatory Encounter Ezequiel Caldwell [facility] UNK VITAL SIGNS Date Observation Value Provider oxygen saturation, oximetry 99 % Lizzie Farmer " blood pressure, diastolic 84 mm[Hg] Lizzie Darian " blood pressure, systolic 130 mm[Hg] Lizzie Farmer " respiratory rate E&M 16 /min Lizzie Farmer " pulse rate E&M 87 /min Lizzie Farmer " temperature E&M 98.2 [degF] Lizzie Farmer " weight E&M 191.40 lbs. Lizzie Farmer " weight in kilograms E&M 87 kg Lizzie Farmer " temperature site oral Lizzie Farmer " method used to obtain blood pressure automatic Lizzie Farmer " Blood Pressure Position 01 sitting Lizzie Farmer " blood pressure, site #1 left arm Lizzie Farmer " height E&M 62 [in_i] Lizzie Farmer " height in centimeters E&M 157.48 cm Lizzie Farmer oxygen saturation, oximetry 97 % Carol S Conde " blood pressure, diastolic 86 mm[Hg] Carol S Conde " blood pressure, systolic 132 mm[Hg] Carol S Conde " respiratory rate E&M 18 /min Carol S Conde " pulse rate E&M 87 /min Carol S Conde " temperature E&M 98.8 [degF] Carol S Conde " weight E&M 194.50 lbs. Carol S Conde " weight in kilograms E&M 88.41 kg Carol S Conde " blood pressure, site #1 right arm Carol S Conde " Blood Pressure Position 01 sitting Carol S Conde " method used to obtain blood pressure automatic Carol S Conde " temperature site oral Carol S Conde " height E&M 62 [in_i] Carol S Conde " height in centimeters E&M 157.48 cm Carol S Conde oxygen saturation, oximetry 98 % Ginette Pool " method used to obtain blood pressure automatic Ginette Pool " Blood Pressure Position 01 sitting Ginette Pool " blood pressure, site #1 right arm Ginette Pool " blood pressure, diastolic 84 mm[Hg] Ginette Pool " blood pressure, systolic 128 mm[Hg] Ginette Pool " respiratory rate E&M 17 /min Ginette Pool " pulse rate E&M 74 /min Ginette Pool " temperature site oral Ginette Pool " temperature E&M 98 [degF] Ginette Pool " weight E&M 193 lbs. Ginette Pool " weight in kilograms E&M 87.73 kg Ginette Pool " height E&M 62 [in_i] Ginette Pool " height in centimeters E&M 157.48 cm Ginette Pool oxygen saturation, oximetry 99 % Jenise Oliveros " blood pressure, diastolic 83 mm[Hg] Jenise Oliveros " blood pressure, systolic 124 mm[Hg] Jenise Oliveros " respiratory rate E&M 18 /min Jenise Oliveros " pulse rate E&M 94 /min Jenise Oliveros " temperature E&M 98.4 [degF] Jenise Oliveros " weight E&M 190.25 lbs. Jenise Oliveros " weight in kilograms E&M 86.48 kg Jenise Oliveros " blood pressure, site #1 left arm Carol S Conde " Blood Pressure Position 01 sitting Carol S Conde " method used to obtain blood pressure automatic Carol S Conde " temperature site oral Carol S Conde " height E&M 62 [in_i] Carol S Conde " height in centimeters E&M 157.48 cm Jenise Oliveros oxygen saturation, oximetry 98 % Maria Luisasunita Cantrell " blood pressure, diastolic 82 mm[Hg] Maria Luisa Cantrell " blood pressure, systolic 120 mm[Hg] Maria Luisasunita Cantrell " respiratory rate E&M 18 /min Maria Luisasunita Cantrell " pulse rate E&M 68 /min Maria Luisa Cantrell " temperature E&M 98.1 [degF] Maria Luisa Cantrell " weight E&M 189.40 lbs. Maria Luisasunita Cantrell " weight in kilograms E&M 86.09 kg Maria Luisasunita Cantrell " method used to obtain blood pressure automatic Maria Luisa Cantrell " Blood Pressure Position 01 sitting Maria Luisasunita Cantrell " blood pressure, site #1 left arm Maria Luisasunita Cantrell " temperature site oral Maria Luisa Cantrell " height E&M 62 [in_i] Maria Luisa Cantrell " height in centimeters E&M 157.48 cm Maria Luisasunita Cantrell temperature site oral Lizzie Farmer " method used to obtain blood pressure automatic Lizzie Farmer " Blood Pressure Position 01 sitting Lizzie Farmer " blood pressure, site #1 left arm Lizzie Farmer " oxygen saturation, oximetry 98 % Lizzie Farmer " blood pressure, diastolic 62 mm[Hg] Lizzie Farmer " blood pressure, systolic 114 mm[Hg] Lizzie Farmer " respiratory rate E&M 16 /min Lizzie Farmer " pulse rate E&M 92 /min Lizzie Farmer " temperature E&M 98.2 [degF] Lizzie Farmer " weight E&M 193.40 lbs. Lizzie Farmer " weight in kilograms E&M 87.91 kg Lizzie Farmer " height E&M 62 [in_i] Lizzie Farmer " height in centimeters E&M 157.48 cm Lizzie Farmer oxygen saturation, oximetry 97 % Jenise Oliveros " method used to obtain blood pressure automatic Jenise Oliveros " Blood Pressure Position 01 sitting Jenise Oliveros " blood pressure, site #1 left arm Jenise Oliveros " blood pressure, diastolic 85 mm[Hg] Jenise Oliveros " blood pressure, systolic 132 mm[Hg] Jenise Oliveros " respiratory rate E&M 20 /min Jenise Oliveros " pulse rate E&M 88 /min Jenise Oliveros " temperature site oral Jenise Oliveros " temperature E&M 98.2 [degF] Jenise Oliveros " weight E&M 192 lbs. Jenise Oliveros " weight in kilograms E&M 87.27 kg Jenise Oliveros " height E&M 62 [in_i] Jenise Oliveros " height in centimeters E&M 157.48 cm Jenise Oliveros oxygen saturation, oximetry 94 % Dixie Dunaway " method used to obtain blood pressure automatic Dixie Gume " Blood Pressure Position 01 sitting Dixie Dunaway " blood pressure, site #1 left arm Dixie Dunaway " blood pressure, diastolic 80 mm[Hg] Dixie Dunaway " blood pressure, systolic 120 mm[Hg] Dixie Dunaway " respiratory rate E&M 16 /min Dixie Dunaway " pulse rate E&M 88 /min Dixie Dunaway " temperature site oral Dixie Dunaway " temperature E&M 98.3 [degF] Dixie Gume " weight E&M 195.60 lbs. Dixie Gume " weight in kilograms E&M 88.91 kg Dixie Gume " height E&M 62 [in_i] Dixie Gume " height in centimeters E&M 157.48 cm Dixie Dunaway oxygen saturation, oximetry 98 % Maria Luisa Cantrell " blood pressure, diastolic 77 mm[Hg] Maria Luisa Cantrell " blood pressure, systolic 122 mm[Hg] Maria Luisa Cantrell " respiratory rate E&M 21 /min Maria Luisa Cantrell " pulse rate E&M 90 /min Maria Luisa Cantrell " temperature in centigrade E&M 2 Delma Maria Luisa Cantrell " temperature E&M 98 [degF] Maria Luisa Cantrell " weight E&M 198.25 lbs. Maria Luisa Cantrell " weight in kilograms E&M 90.11 kg Maria Luisa Cantrell " blood pressure, site #1 left arm Lizzie Farmer " Blood Pressure Position 01 sitting Lizzie Farmer " method used to obtain blood pressure automatic Lizzie Farmer " temperature site oral Lizzie Farmer " height E&M 62 [in_i] Lizzie Farmer " height in centimeters E&M 157.48 cm Lizzie Farmer height E&M 62 [in_i] Maria Luisa Cantrell " height in centimeters E&M 157.48 cm Maria Luisa Cantrell " temperature site oral Maria Luisa Cantrell " blood pressure, site #1 left arm Maria Luisa Cantrell " Blood Pressure Position 01 sitting Maria Luisasunita Cantrell " method used to obtain blood pressure automatic Maria Luisa Cantrell oxygen saturation, oximetry 98 % Meliza Combs " method used to obtain blood pressure automatic Meliza Combs " Blood Pressure Position 01 sitting Meliza Combs " blood pressure, site #1 right arm Meliza Combs " blood pressure, diastolic 67 mm[Hg] Meliza Combs " blood pressure, systolic 125 mm[Hg] Meliza Combs " respiratory rate E&M 21 /min Meliza Combs " pulse rate E&M 82 /min Meliza Combs " temperature site oral Meliza Combs " temperature E&M 98.2 [degF] Meliza Combs " weight E&M 195 lbs. Meliza Combs " weight in kilograms E&M 88.64 kg Meliza Combs " height E&M 62 [in_i] Meliza Combs " height in centimeters E&M 157.48 cm Meliza Combs temperature site oral Lizzie Farmer " method used to obtain blood pressure automatic Lizzie Farmer " Blood Pressure Position 01 sitting Lizzie Farmer " blood pressure, site #1 right arm Lizzie Farmer " oxygen saturation, oximetry 98 % Lizzie Farmer " blood pressure, diastolic 82 mm[Hg] Lizzie Farmer " blood pressure, systolic 137 mm[Hg] Lizzie Farmer " respiratory rate E&M 15 /min Lizzie Farmer " pulse rate E&M 87 /min Lizzie Farmer " temperature E&M 98.3 [degF] Lizzie Farmer " weight E&M 190.20 lbs. Lizzie Farmer " weight in kilograms E&M 86.45 kg Lizzie Farmer " height E&M 62 [in_i] Lizzie Farmer " height in centimeters E&M 157.48 cm Lizzei Rankinierrez oxygen saturation, oximetry 97 % Marcela Latif " method used to obtain blood pressure automatic Marcela Latif " Blood Pressure Position 01 sitting Marcela Latif " blood pressure, site #1 right arm Marcela Latif " blood pressure, diastolic 79 mm[Hg] Marcela Latif " blood pressure, systolic 121 mm[Hg] Marcela Latif " respiratory rate E&M 18 /min Marcela Latif " pulse rate E&M 79 /min Marcela Latif " temperature site oral Marcela Latif " temperature E&M 98.6 [degF] Marcela Latif " weight E&M 192.20 lbs. Marcela Latif " weight in kilograms E&M 87.36 kg Marcela Latif " height E&M 62 [in_i] Marcela Latif " height in centimeters E&M 157.48 cm Marcela Latif oxygen saturation, oximetry 98 % Ginette Pool " method used to obtain blood pressure automatic Ginette Pool " Blood Pressure Position 01 sitting Ginette Pool " blood pressure, site #1 right arm Ginette Pool " blood pressure, diastolic 77 mm[Hg] Ginette Pool " blood pressure, systolic 121 mm[Hg] Ginette Pool " respiratory rate E&M 20 /min Ginette Pool " pulse rate E&M 82 /min Ginette Pool " temperature site oral Ginette Pool " temperature E&M 98.4 [degF] Ginette Pool " weight E&M 192.20 lbs. Ginette Pool " weight in kilograms E&M 87.36 kg Ginette Pool " height E&M 62 [in_i] Ginette Pool " height in centimeters E&M 157.48 cm Ginette Pool oxygen saturation, oximetry 100 % Marcela Latif " method used to obtain blood pressure automatic Marcela Latif " Blood Pressure Position 01 sitting Marcela Latif " blood pressure, site #1 right arm Marcela Latif " blood pressure, diastolic 65 mm[Hg] Marcela Latif " blood pressure, systolic 113 mm[Hg] Marcela Latif " respiratory rate E&M 18 /min Marcela Latif " pulse rate E&M 72 /min Marcela Latif " temperature site oral Marcela Altif " temperature E&M 98.2 [degF] Marcela Latif " weight E&M 190.20 lbs. Marcela Latif " weight in kilograms E&M 86.45 kg Marcela Latif " height E&M 62 [in_i] Marcela Latif " height in centimeters E&M 157.48 cm Marcela Latif oxygen saturation, oximetry 98 % Ginette Pool " method used to obtain blood pressure automatic Ginette Pool " Blood Pressure Position 01 sitting Ginette Pool " blood pressure, site #1 right arm Ginette Pool " blood pressure, diastolic 82 mm[Hg] Ginette Pool " blood pressure, systolic 125 mm[Hg] Ginette Pool " respiratory rate E&M 19 /min Ginette Pool " pulse rate E&M 78 /min Ginette Pool " temperature site oral Ginette Pool " temperature E&M 97.9 [degF] Ginette Pool " weight E&M 188 lbs. Ginette Pool " weight in kilograms E&M 85.45 kg Ginette Pool " height E&M 62 [in_i] Ginette Pool " height in centimeters E&M 157.48 cm Ginette Pool oxygen saturation, oximetry 96 % Susana Wright " blood pressure, diastolic 80 mm[Hg] Susana Wright " blood pressure, systolic 121 mm[Hg] Susana Wright " respiratory rate E&M 20 /min Susana Wright " pulse rate E&M 87 /min Susana Wright " temperature E&M 99.0 [degF] Susana Wright " weight E&M 182 lbs. Susana Wright " weight in kilograms E&M 82.73 kg Susana Wright " method used to obtain blood pressure automatic Susana Wright " Blood Pressure Position 01 sitting Susana Wirght " blood pressure, site #1 right arm Susana Wright " temperature site oral Susana Wright " height E&M 62 [in_i] Susana Wright " height in centimeters E&M 157.48 cm Susana Wright temperature site oral Ellen Walters " method used to obtain blood pressure automatic Ellen Walters " Blood Pressure Position 01 sitting Ellen Walters " blood pressure, site #1 right arm Ellen Walters " oxygen saturation, oximetry 98 % Ellen Mckeonz " blood pressure, diastolic 69 mm[Hg] Ellen Walters " blood pressure, systolic 111 mm[Hg] Ellen Walters " respiratory rate E&M 20 /min Ellen Walters " pulse rate E&M 82 /min Ellen Walters " temperature E&M 98.4 [degF] Ellen Walters " weight E&M 177.20 lbs. Ellen Mckeonz " weight in kilograms E&M 80.55 kg Ellen Mckeonz " height E&M 62 [in_i] Ellen Walters " height in centimeters E&M 157.48 cm Ellen Dalyniz oxygen saturation, oximetry 98 % Deya Navarro " method used to obtain blood pressure automatic Deya Navarro " Blood Pressure Position 01 sitting Deya Navarro " blood pressure, site #1 right arm Deya Navarro " blood pressure, diastolic 80 mm[Hg] Deya Navarro " blood pressure, systolic 114 mm[Hg] Deya Navarro " respiratory rate E&M 20 /min Deya Navarro " pulse rate E&M 80 /min Deya Navarro " temperature site tympanic Deya Navarro " temperature E&M 97.8 [degF] Deya Navarro " weight E&M 177.20 lbs. Deya Navarro " weight in kilograms E&M 80.55 kg Deya Navarro " height E&M 62 [in_i] Deya Navarro " height in centimeters E&M 157.48 cm Deya Navarro oxygen saturation, oximetry 97 % Dixie Ray " method used to obtain blood pressure automatic Dixie Ray " Blood Pressure Position 01 sitting Dixie Ray " blood pressure, site #1 left arm Dixie Ray " blood pressure, diastolic 79 mm[Hg] Dixie Ray " blood pressure, systolic 125 mm[Hg] Dixie Ray " respiratory rate E&M 18 /min Dixie Ray " pulse rate E&M 88 /min Dixie Ray " temperature site oral Dixie Ray " temperature E&M 97.9 [degF] Dixie Ray " weight E&M 175.20 lbs. Dixie Ray " weight in kilograms E&M 79.64 kg Dixie Ray " height E&M 62 [in_i] Dixie Ray " height in centimeters E&M 157.48 cm Dixie Ray height E&M 62 [in_i] Isabel Moe " height in centimeters E&M 157.48 cm Isabel Moe " method used to obtain blood pressure automatic Isabel Moe " Blood Pressure Position 01 sitting Isabel Moe " blood pressure, site #1 right arm Isabel Moe " blood pressure, diastolic 80 mm[Hg] Isabel Moe " blood pressure, systolic 137 mm[Hg] Isabel Moe " respiratory rate E&M 18 /min Isabel Moe " pulse rate E&M 88 /min Isabel Moe " temperature site oral Isabel Moe " temperature E&M 98.1 [degF] Isabel Moe " weight E&M 178 lbs. Isabel Moe " weight in kilograms E&M 80.91 kg Isabel Moe ALLERGIES Allergy Name Onset Date Reaction Criticality Status CODEINE Nause and rash Unable to assess criticality active REASON FOR REFERRAL Start Date - End Date Service - Mammogram - Diagnostic - X-RAY - OB / Environmental Protection Inspector - External - X-RAY RESULTS Date Observation Value Provider Reference Range Interpretation Location prolactin, serum 40.9 ng/mL [facility] 4.8-23.3 High " human chorionic gonadotropin, total, serum <1 mIU/mL [facility] " activated partial thromboplastin time (aPTT) 40 s [facility] 24-33 High " prothrombin time (patient) 11.2 s [facility] 9.1-12.0 " international normalized ratio (INR) 1.1 [facility] 0.8-1.2 " bacteria, urine microscopy None seen [facility] None seen/Few " mucus on urinalysis Present [facility] Not Estab. " cast type, urinalysis Hyaline casts [facility] N/A " casts, urine Present [facility] None seen Abnormal " epithelial cells, urine 0-10 [facility] 0 - 10 " RBC, Urine 3-10 /hpf [facility] 0 - 2 Abnormal " WBC urine on microscopy 0-5 /hpf [facility] 0 - 5 " urinalysis, microscopic examination See below: [facility] " nitrate, urine Negative [facility] Negative " urobilinogen, urine, semiquantitative (dipstick) 0.2 [facility] 0.2-1.0 " bilirubin, urine Negative [facility] Negative " ketones, urine, by test strip Negative [facility] Negative " glucose, urine, semiquantitative Negative [facility] Negative " protein, urine, semiquantitative (dipstick) Negative [facility] Negative/Trace " leukocyte esterase, urine, by dipstick Negative [facility] Negative " appearance, urine Cloudy [facility] Clear Abnormal " urine color Yellow [facility] Yellow " pH, urine, semiquantitative 7.5 [facility] 5.0-7.5 " specific gravity, body fluid 1.019 [facility] 1.005-1.030 " alanine aminotransferase (SGPT), serum 17 1/L [facility] 0-32 " aspartate aminotransferase (SGOT), serum 18 1/L [facility] 0-40 " alkaline phosphatase, serum 128 1/L [facility] 39-117 High " bilirubin, serum, total 0.6 mg/dL [facility] 0.0-1.2 " albumin/globulin ratio, serum 1.2 [facility] 1.2-2.2 " globulin, serum 3.7 [facility] 1.5-4.5 " albumin, serum 4.3 g/dL [facility] 3.5-5.5 " protein, total, serum 8.0 g/dL [facility] 6.0-8.5 " calcium, serum 9.9 mg/dL [facility] 8.7-10.2 " carbon dioxide, venous blood 26 mmol/L [facility] 20-29 " chloride, serum 94 mmol/L [facility] 96-106 Low " potassium, serum 4.0 mmol/L [facility] 3.5-5.2 " sodium, serum 138 mmol/L [facility] 134-144 " urea nitrogen/creatinine ratio, serum 12 [facility] 9-23 " eGFR if 104 mL/min/((173/100).m2) [facility] >59 " Estimated Glomerular Filtration Rate (calc) 90 mL/min/((173/100).m2) [facility] >59 " creatinine, serum 0.81 mg/dL [facility] 0.57-1.00 " urea nitrogen, blood 10 mg/dL [facility] 6-24 " blood glucose, random 91 mg/dL [facility] 65-99 " immature granulocytes, percentage of total cells, blood 0 % [facility] Not Estab. " basophil count, absolute 0.0 x10E3/uL [facility] 0.0-0.2 " Eosinophil Absolute Count 0.2 X10E3/UL [facility] 0.0-0.4 " monocyte count, blood, automated 0.5 X10E3/UL [facility] 0.1-0.9 " lymphocyte count, blood, automated 2.8 X10E3/UL [facility] 0.7-3.1 " Absolute Neutrophils 7.2 X10E3/UL [facility] 1.4-7.0 High " basophils as [...] % [facility] Not Estab. " platelet count 462 X10E3/UL [facility] 150-450 High " red blood cell distribution width 15.1 % [facility] 11.7-15.4 " mean corpuscular hemoglobin concentration, RBC 31.5 G/DL [facility] 31.5-35.7 " mean corpuscular hemoglobin, RBC 27.8 pg [facility] 26.6-33.0 " mean corpuscular volume, RBC 88 fL [facility] 79-97 " hematocrit, blood 35.9 % [facility] 34.0-46.6 " hemoglobin, blood 11.3 g/dL [facility] 11.1-15.9 " erythrocyte (RBC) count 4.06 X10E6/UL [facility] 3.77-5.28 " leukocyte count, blood 10.7 X10E3/UL [facility] 3.4-10.8 " thyroxine, serum, free 1.24 ng/dL [facility] 0.82-1.77 " thyroid stimulating hormone, serum 2.380 u[iU]/mL [facility] 0.450-4.500 alanine aminotransferase (SGPT), serum 17 1/L [facility] [...] Farmer " influenza B virus antigen negative [facility] " influenza virus A antigen negative [facility] alanine aminotransferase (SGPT), serum 24 1/L [facility] [...] Status Fluzone Quadrivalent IM PF 0.5 ML [facility] [id number] [employer] 0.5 mL [id number] completed HISTORY OF MEDICATION USE Medication Instructions Dates Provider Comments HYDROXYZINE HCL 25 MG ORAL TABLET 1 by mouth every 6 hours as needed Lisbet Chow DELSYM 30 MG/5ML ORAL SUSPENSION EXTENDED RELEASE 5 ml Every 6 hrs As Needed cough Lisbet Lorenzanaome RANITIDINE HCL 150 MG ORAL TABLET 1 [...] by mouth twice a day Lisbet Lorenzanaome PREDNISONE 20 MG ORAL TABLET Take 1 tab By Mouth BID x 2 days; then 1 tab x 4 days Lisbet Lorenzanaome AUGMENTIN 875-125 MG ORAL TABLET 1 by mouth twice a day Lisbet Lorenzanaome FERROUS SULFATE 325 (65 FE) MG ORAL TABLET DELAYED RELEASE 1 by mouth daily Lisbet Lorenzanaome AZITHROMYCIN 250 MG ORAL TABLET 2 tablets by mouth on day one then one tablet by mouth each day for a total of 5 days Lisbet Lorenzanaome GABAPENTIN 100 MG ORAL CAPSULE 1 tab By Mouth Three Times a Day prn Lisbet Chow #30, 30 days supply, Filled 08/30/2017 AUGMENTIN 875-125 MG ORAL TABLET 1 by mouth twice a day - Lisbet Chow FLOMAX 0.4 MG ORAL CAPSULE 1 by mouth every day Lisbet Chow TRAMADOL HCL 50 MG ORAL TABLET 1 tablets by mouth 3 times a day as needed for pain Lisbet Chow AZITHROMYCIN 250 MG ORAL TABLET 2 tablets by mouth on day one then one tablet by mouth each day for a total of 5 days Lisbet Lorenzanaome SULFAMETHOXAZOLE-TRIMETHOPRIM 800-160 MG ORAL TABLET 1 tab By Mouth bid Lisbet Lorenzanaome CYCLOBENZAPRINE HCL 10 MG ORAL TABLET 1 By Mouth three times a day as needed for muscle spasm Lisbet Geraldo NAPROXEN 500 MG ORAL TABLET 1 by mouth twice a day as needed for pain and inflammation Lisbet Geraldo HYDROCHLOROTHIAZIDE 25 MG TAB TAKE 1 TABLET BY MOUTH EVERY DAY Lisbet Chow SOCIAL HISTORY Date Observation Value Provider drug use, illicit Never Lizzie Farmer " alcohol use Never Lizzie Farmer " social history reviewed E&M reviewed today Lizzie Lorenzorez " sexual orientation Heterosexual Lizzie Lorenzorez " assessment of health literacy ([facility] 2014 Standards, 3C10) Adequate Lizzie Farmer " passive cigarette smoke exposure No Lizzie Farmer " smoking status never smoker Lizzie Farmer " Exercise Program Referral T Lizzie Farmer " Weight Management Counseling Provided T Lizzie Farmer " Nutrition intervention T Lizzie Farmer Exercise Program Referral T Carol S Conde " Weight Management Counseling Provided T Carol S Conde " Nutrition intervention T Carol S Conde " drug use, illicit Never Carol S Conde " alcohol use Never Carol S Conde " social history reviewed E&M reviewed today Carol S Conde " sexual orientation Heterosexual Carol S Conde " assessment of health literacy ([facility] 2014 Standards, 3C10) Adequate Carol S Conde " passive cigarette smoke exposure No Carol S Conde " smoking status never smoker Carol S Conde drug use, illicit Never Ginette Pool " alcohol use Never Ginette Pool " social history reviewed E&M reviewed today Ginette Pool " assessment of health literacy ([facility] 2014 Standards, 3C10) Adequate Ginette [...] that you could be ? No Maria Luisasunita Cantrell " passive cigarette smoke exposure No Maria Luisasunita Cantrell " assessment of health literacy ([facility] 2014 Standards, 3C10) Adequate Maria [...] Lizzie Rankinierrez " sexual orientation Heterosexual Lizzie Lorenzorez " assessment of health literacy ([facility] 2014 Standards, 3C10) Adequate Lizzie Farmer " passive cigarette smoke exposure No Lizzie Lorenzorez " smoking status never smoker Lizzie Lorenzorez " Exercise Program Referral T Lizzie Farmer " Weight Management Counseling Provided T Lizzie Farmer " Nutrition intervention T Lizzie Farmer drug use, illicit Never Jenise Oliveros " alcohol use Never Jenise Oliveros " social history reviewed E&M reviewed today Jenise Oliveros " sexual orientation Heterosexual Jenise Oliveros " assessment of health literacy ([facility] 2014 Standards, 3C10) Adequate Jenise [...] Dixie Dunaway " assessment of health literacy ([facility] 2014 Standards, 3C10) Adequate Dixie Dunaway " passive cigarette smoke exposure No Dixie Dunaway " smoking status never smoker Dixie Dunaway " Exercise Program Referral T Dixie Gume " Weight Management Counseling Provided T Dixie Dunaway " Nutrition intervention T Dixie Gume Exercise Program Referral T Lisbet Geraldo " Weight Management Counseling Provided T Lisbet Geraldo " Nutrition intervention T Lisbet Geraldo " drug use, illicit Never Lizzie Farmer " alcohol use Never Lizzie Farmer " social history reviewed E&M reviewed today Lizzie Farmer " sexual orientation Heterosexual Lizzie Farmer " assessment of health literacy ([facility] 2014 Standards, 3C10) Adequate Lizzie Farmer " passive cigarette smoke exposure No Lizzie Farmer " smoking status never smoker Lizzie Farmer assessment of health literacy ([facility] 2014 Standards, 3C10) Adequate Maria [...] Meliza Combs " assessment of health literacy ([facility] 2014 Standards, 3C10) Adequate Meliza [...] Lizzie Farmer " assessment of health literacy ([facility] 2014 Standards, 3C10) Adequate Lizzie Farmer " passive cigarette smoke exposure No Lizzie Farmer " smoking status never smoker Lizzie Lorenzorez " sexual orientation Heterosexual Marcela Latif " assessment of health literacy ([facility] 2014 Standards, 3C10) Adequate Marcela [...] Ginette Pool " assessment of health literacy ([facility] 2014 Standards, 3C10) Adequate Ginette [...] Marcela Latif " assessment of health literacy ([facility] 2014 Standards, 3C10) Adequate Marcela Latif " is there any chance that you could be ? No Macrela Latif " passive cigarette smoke exposure No [...] Ginette Pool " assessment of health literacy ([facility] 2014 Standards, 3C10) Adequate Ginette Pool " passive cigarette smoke exposure No Ginette Pool " smoking status never smoker Ginette Pool drug use, illicit Never Susana Wright " alcohol use Never Susana Wright " social history reviewed E&M reviewed today Susana Wright " sexual orientation Heterosexual Susanaher Wright " passive cigarette smoke exposure No Susana Wright " smoking status never smoker Susana Wright " assessment of health literacy ([facility] 2014 Standards, 3C10) Adequate Susana Wright social history reviewed E&M reviewed today Ellen Dalyniz " passive cigarette smoke exposure No Ellen Dalyniz " smoking status never smoker Ellen Dalyniz " assessment of health literacy ([facility] 2014 Standards, 3C10) Adequate Ellen Walters " Exercise Program Referral T Ellen Walters " Weight Management Counseling Provided T Ellen Walters " Nutrition intervention T Ellen Walters Exercise Program Referral T Lisbet Geraldo " Weight Management Counseling Provided T Lisbet Geraldo " Nutrition intervention T Lisbet Geraldo social history reviewed E&M reviewed today Deya Ramirezvez " sexual orientation Heterosexual Deyasarah Ramirezvez " passive cigarette smoke exposure No Deyasarah Ramirezvez " smoking status never smoker Deyasarah Ramirezvez " assessment of health literacy ([facility] 2014 Standards, 3C10) Adequate Deyasarah Ramirezvez " sexual orientation Heterosexual Dixie Ray " passive cigarette smoke exposure No Dixie Ray " smoking status never smoker Dixie Ray " assessment of health literacy ([facility] 2014 Standards, 3C10) Adequate Dixie [...] Isabel Moe " drug use, illicit Never Isabel Moe " alcohol use Never Isabel Moe " sexual orientation Heterosexual Bingcriselda Abhi " is there any chance that you could be ? No Isabel Moe " passive cigarette smoke exposure No Isabel Moe " smoking status never smoker Bingcriselda Abhi " assessment of health literacy ([facility] 2014 Standards, 3C10) Adequate Isabel Moe FUNCTIONAL STATUS No Information Available MENTAL STATUS Date Observation Value Provider assessment of judgment and insight E&M limited Lisbet Geraldo " mental status examination: orientation [...] E&M oriented to time, place, and person [facility] " assessment of judgment and [...] Anxiety Disorder Questionnaire - Question 2 0 Marcelathomas Latif " Generalized Anxiety Disorder Questionnaire - Question 1 0 Marcela Latif assessment of judgment and insight E&M intact Lisbet Geraldo " assessment of mood and affect E&M no depression, anxiety, or agitation Lisbet [facility] " Generalized Anxiety Disorder Questionnaire - Question [...] Anxiety Disorder Questionnaire - Question 1 0 Deay Navarro assessment of judgment and insight E&M intact Susanth Memo " mental status examination: orientation E&M oriented to time, place, and person Janetnasir Memo " assessment of mood and affect E&M no depression, anxiety, or agitation R[facility] " Generalized Anxiety Disorder Questionnaire - Question 2 0 Dixie Cory " Generalized Anxiety Disorder Questionnaire - Question 1 0 Dixie Cory assessment of judgment and insight E&M intact [...] No Information Available TREATMENT PLAN Date Name Prolactin TSH+Free T4 Urinalysis with Micro on Positives PT and PTT hCG,Beta Subunit, Qnt, Serum Comp. Metabolic Panel (14) CBC With Differential/Platelet [...] With Differential/Platelet - - - - - - - Est Patient Detailed - 34660 Ofc Vst, Est Level III Est Patient Exp Problem - 92635 Vaccines Ordered - Print Consent/Declination Forms Urinalysis - Dip only - In House Est Patient Detailed - 40348 Est Patient Exp Problem - 47965 Ofc Vst, Est Level III Est Patient Exp Problem - 93511 Est Patient Detailed - 71125 Ofc Vst, Est Level III Ofc Vst, Est Level III Rapid Strep - In House Rapid Flu - In House Est Patient Detailed - 76307 Est Patient Detailed - 65622 IM or SQ Injection Injection, ketorolac tromethamine (toradol), per 15 mg IM or SQ Injection Injection, dexamethasone sodium phosphate, 1mg Est Patient Detailed - 21472 IM or SQ Injection Injection, ketorolac tromethamine (toradol), per 15 mg Est Patient Detailed - 64235 Ear Irrigation Est Patient Detailed - 64446 IM or SQ Injection Injection, dexamethasone sodium phosphate, 1mg Urinalysis - Dip only - In House Rapid Strep - In House Est Patient Exp Problem - 19991 Est Patient Detailed - 57246 Est Patient Exp Problem - 09760 Est Patient Well Exam (18 - 39 Yrs) - 71070 Est Patient Exp Problem - 42121 New Patient Exp Problem - 73927 HISTORY OF PROCEDURES Procedure Date Procedure Name Provider Procedure Notes Status Vaccines Ordered - Print Consent/Declination Forms Lisbet Geraldo completed Urinalysis - Dip only - In House Lisbet Geraldo completed Rapid Strep - In House Lisbet Geraldo completed Rapid Flu - In House Lisbet Geraldo completed IM or SQ Injection Lisbet Geraldo completed Injection, ketorolac tromethamine (toradol), per 15 mg Lisbet Geraldo NDC: [id number]. completed IM or SQ Injection Lisbet Geraldo completed Injection, dexamethasone sodium phosphate, 1mg Lisbet Geraldo NDC: [id number]. completed IM or SQ Injection Lisbet Geraldo completed Injection, ketorolac tromethamine (toradol), per 15 mg Lisbet Geraldo NDC: [id number]. completed Ear Irrigation Lisbet Geraldo completed IM or SQ Injection Lisbet Geraldo 4mg IM Dexamethasone completed Injection, dexamethasone sodium phosphate, 1mg Lisbet Geraldo NDC: [id number]. completed Urinalysis - Dip only - In House Lisbet Geraldo completed Rapid Strep - In House Lisbet Geraldo completed GOALS No Information Available HEALTH CONCERNS No Information Available
--- OUTSIDE RECORDS SUMMARY | 2019-05-24 13:29 | XMS REPORT ---
Author Author Admin, [place] Organization Unknown Address Unknown Phone Unavailable PROBLEMS Condition Status Date Provider Notes Screening exam for breast cancer active Lisbet Geraldo Galactorrhea active Lisbet Geraldo Prolactinoma active [...] - Ambulatory Encounter Lisbet Geraldo Lisbet Geraldo [facility] UNK - Ambulatory Encounter Lisbet Geraldo Lisbet Geraldo [facility]Log[facility] UNK - Ambulatory Encounter Lisbet Geraldo Lisbet Geraldo [facility] UNK - Ambulatory Encounter Lisbet Geraldo Lisbet Geraldo [facility]Log[facility] UNK - Ambulatory Encounter [facility] Support [facility] - Ambulatory Encounter Lisbet Geraldo Lisbet Tomas MedAdherence [facility] UNK - Ambulatory Encounter Lisbet Geraldo Lisbet Geraldo [facility] UNK - Ambulatory Encounter Lisbet Geraldo Combs [facility] Conscious sedation medical clearance examProlactinomaGalactorrheaScreening exam for breast cancer - Ambulatory Encounter Lisbet Geraldo Lisbet Lorenzanaome [facility] UNK - Ambulatory Encounter Lisbet Geraldo Lisbet Lorenzanaome LinkLog[facility] UNK - Ambulatory Encounter Lisbet Geraldo Lisbet Lorenzanaome LinkLog[facility] UNK - Ambulatory Encounter Lisbet Geraldo Lisbet Chow LinkLog[facility] UNK - Ambulatory Encounter Lisbet Geraldo Chow [facility] UNK - Ambulatory Encounter Lisbet Geraldo Chow [facility] - Ambulatory Encounter Lisbet Chow [facility] UNK - Ambulatory Encounter Lisbet Geraldo Chow Carol Conde [facility] Viral URI - Ambulatory Encounter [...] UNK - Ambulatory Encounter Fax Status [facility] UNK - Ambulatory Encounter Lisbet Geraldo Chow LinkLogic [facility] UNK - Ambulatory Encounter Lisbet Geraldo Lorenzanaome LinkLogic [facility] UNK - Ambulatory Encounter Lisbet Geraldo Lorenzanaome [facility] UNK - Ambulatory Encounter Fax Status [facility] UNK - Ambulatory Encounter Fax Status [facility] UNK - Ambulatory Encounter Lisbet Geraldo Lorenaznaome LinkLogic [facility] UNK - Ambulatory Encounter Lisbet Geraldo Chow [facility] UNK - Ambulatory Encounter Lisbet Geraldo Newman [facility] Abdominal pain - Ambulatory Encounter Lisbet Geraldo Chow [facility] UNK - Ambulatory Encounter Lisbet Geraldo Lisbet Chacon Conde [facility] UNK - Ambulatory [facility] - [facility]counter Lisbet Geraldo Lisbet Chow Bri MurphyAdherence [facility] Practice UNK - Ambulatory Encounter Lisbet Geraldo Lisbet Chow [facility] UNK - Ambulatory Encounter Lisbet Geraldo Lisbet Chow Maria Luisa Cantrell [facility] UNK - Ambulatory Encounter Lisbet Geraldo Lisbet Chow [facility] UNK - Ambulatory Encounter Lisbet Geraldo Lisbet Chow Lizzie Rankinierrez [facility] Cerumen impaction, leftViral URI - Ambulatory Encounter Lisbet Geraldo Lisbet Chow LinkLogic [facility] UNK - Ambulatory Encounter Lisbet Geraldo Lisbet Chow LinkLogic [facility] UNK - Ambulatory Encounter Lisbet Geraldo Lisbet Chow [facility] UNK - Ambulatory Encounter Lisbet Geradlo Lisbet Oliveros [facility] Practice AnemiaCough - Ambulatory Encounter Lisbet Geraldo Lisbet Chow LinkLogic [facility] UNK - Ambulatory Encounter Yolanda Morgan [facility] UNK - Ambulatory Encounter Yolanda Morgan [facility] UNK - Ambulatory Encounter Lisbet Geraldo Lisbet Chow [facility] UNK - Ambulatory Encounter Lisbet Geraldo Dunaway Yolanda Morgan [facility] Chest wall pain - Ambulatory Encounter Lisbet Geraldoaidee Chwo LinkLogic [facility] UNK - Ambulatory Encounter Lisbet Geraldo Chow [facility] UNK - Ambulatory Encounter Lisbet Geraldo Chow Lizziejena Farmer Maria Luisa [facility] Practice UNK - Ambulatory Encounter Lisbet Geraldo Chow [facility] UNK - Ambulatory Encounter Lisbet Geraldo Chow [facility] UNK - Ambulatory Encounter Lisbet Geraldo Glass [facility] Allergic rhinitisUrinary tract infectionViral URI - Ambulatory Encounter Lisbet Geraldo Chow [facility]Log[facility] UNK - Ambulatory Encounter Lisbet Geraldo Chow Jenna Diego [facility] UNK - Ambulatory Encounter Lisbet Geraldo Chow [facility] UNK - Ambulatory Encounter Lisbet Geraldo [facility] Upper respiratory infection - Ambulatory Encounter [...] UNK - Ambulatory Encounter Lisbet Geraldo Chow [facility] UNK - Ambulatory Encounter Lisbet Geraldo Chow Clive Mcgowan Davie Farmer Ginette Newman [facility] UNK - Ambulatory Encounter Lisbet Geraldo Chow [facility]Log[facility] UNK - Ambulatory Encounter Lisbet Geraldo Chow [facility] UNK - Ambulatory Encounter Lisbet Geraldo Chow Vick Latif [facility] UNK - Ambulatory Encounter Lisbet Geraldo Chow [facility] UNK - Ambulatory Encounter Lisbet Geraldo [facility] UNK - Ambulatory Encounter Lisbet Geraldo Chow [facility] UNK - Ambulatory Encounter Lisbet Geraldo Chow [facility] UNK - Ambulatory Encounter Lisbet Geraldo Chow [facility] UNK - Ambulatory Encounter Lisbet Geraldo Chow [facility]ick [facility] Cerumen impaction, bilateralNeck pain - Ambulatory Encounter Marquise Saucedo [facility] Practice UNK - Ambulatory Encounter Lisbet Geraldo Chow [facility] Practice UNK - Ambulatory Encounter Lisbet Geraldo Chow [facility] UNK - Ambulatory Encounter Lisbet Geraldo Chow [facility] UNK - Ambulatory Encounter Lisbet Geraldo Chow Lizziejena Latif [facility] Pharyngitis, acute - Ambulatory Encounter Fax Status LinkLogic [facility] UNK - Ambulatory Encounter Fax Status [facility] UNK - Ambulatory Encounter Fax Status [facility] UNK - Ambulatory Encounter Lisbet Chow Clive Jeffries [facility] Pelvic mass - Ambulatory Encounter Fax Status [facility] UNK - Ambulatory Encounter Fax Status [facility] UNK - Ambulatory Encounter Fax Status LinkLogic [facility] UNK - Ambulatory Encounter Lisbet Chow [facility] UNK - Ambulatory Encounter Lisbet Chow LinkLogic [facility] UNK - Ambulatory Encounter Lisbet Geraldo Chow [facility] UNK - Ambulatory Encounter Fax Status LinkLogic [facility] UNK - Ambulatory Encounter Fax Status [facility] - Ambulatory Encounter Fax Status LinkLogic [facility] UNK - Ambulatory Encounter Lizzie Frausto Geraldo Chow Mina Conde [facility] UNK - Ambulatory Encounter Scot Ladd [facility] UNK - Ambulatory Encounter Scot Ladd [facility] UNK - Ambulatory Encounter Lisbet Geraldo Chow [facility] UNK - Ambulatory Encounter Lisbet Geraldo Chow [place] Davie Rodriguez Jeffries Ginette Pool FaQurodo Jacobs [facility] Lower back pain - Ambulatory Encounter [facility] UNK - Ambulatory Encounter Carolina Tomas [facility] UNK - Ambulatory Encounter Carolina Tomas MedAdherence [facility] UNK - Ambulatory Encounter Carolina Tomas MedAdherence LinkLogic [facility] UNK - Ambulatory Encounter Carolina Tomas MedAdherence [facility] UNK - Ambulatory Encounter Carolina Tomas MedAdherence LinkLogic [facility] UNK - Ambulatory Encounter Lisbet Frausto Geraldo [facility] UNK - Ambulatory Encounter Lisbet Frausto Geraldo [facility] UNK - Ambulatory Encounter Lisbet Frausto Geraldo [facility] UNK - Ambulatory Encounter Lisbet Jacobs [facility] Acute bronchitisLeg pain, right - Ambulatory Encounter Carolina Tomas MedAdherence [facility] UNK - Ambulatory Encounter Carolina Tomas MedAdherence [facility] UNK - Ambulatory Encounter Carolina Tomas MedAdherence LinkLogic [facility] UNK - Ambulatory Encounter Vick Turner [facility] UNK - Ambulatory Encounter Vick Turner [facility] UNK - Ambulatory Encounter Lisbet Frausto Geraldo [facility] UNK - Ambulatory Encounter Lisbet Geraldo Frausto Geraldo [facility] UNK - Ambulatory Encounter Lisbet Chow [facility] UNK - Ambulatory Encounter Lisbet Walters [facility] UTI (urinary tract infection) - Ambulatory Encounter Lisbet Chow [facility] UNK - Ambulatory Encounter Lisbet Chow [facility] UNK - Ambulatory Encounter Scot Ladd [facility] UNK - Ambulatory Encounter Scot Ladd [facility] UNK - Ambulatory Encounter Lisbet Frausto Geraldo [facility] UNK - Ambulatory Encounter Lisbet Chow Jenna Falk [facility] Annual examStd screeningScreening for lipid disorderScreening for diabetes mellitus - Ambulatory Encounter Rakan Hampton [facility] UNK - Ambulatory Encounter [facility] UNK - Ambulatory Encounter Ezequiel [facility] ObesityBMI 32.0-32.9Arthritis of spine - Ambulatory Encounter Nahed Dalton [facility] UNK - Ambulatory Encounter Nahed Dalton [facility] UNK - Ambulatory Encounter Elaina Alejandro [facility] UNK - Ambulatory Encounter Dixie Ray [facility] UNK - Ambulatory Encounter Rakan Hampton [facility] UNK - Ambulatory Encounter Lisbet Chow [facility] UNK - Ambulatory Encounter Elaina Frausto [facility] Dixie Jacobs [facility] Lower back painScoliosisHypertension - Ambulatory Encounter Nahed Dalton [facility] UNK - Ambulatory Encounter Nahed Dalton [facility] UNK - Ambulatory Encounter Ezequiel Caldwell [facility] UNK VITAL SIGNS Date Observation Value [...] Jenise Oliveros " weight E&M 190.25 lbs. Jneise Oliveros " weight in kilograms E&M 86.48 [...] Jenise Oliveros oxygen saturation, oximetry 94 % Diixe Dunaway " method used to obtain blood [...] height in centimeters E&M 157.48 cm Lizzie Rankinierrez oxygen saturation, oximetry 97 % Marcela [...] site oral Marcela Latif " temperature E&M 98.2 [degF] Marcela Latif [...] " Blood Pressure Position 01 sitting Susana Wright " blood pressure, site #1 right arm [...] " respiratory rate E&M 20 /min Ellen Waltesr " pulse rate E&M 82 /min Ellen [...] " blood pressure, systolic 137 mm[Hg] Isabel oMe " respiratory rate E&M 18 /min Isabel [...] - Diagnostic - X-RAY - OB / Medical Reception Specialist - External - X-RAY RESULTS Date Observation [...] Farmer " influenza B virus antigen negative [facility] " influenza virus A antigen negative [facility] alanine aminotransferase (SGPT), serum 24 1/L LinkLogic [...] Status Fluzone Quadrivalent IM PF 0.5 ML [facility] [address]-50 Sanofi Pasteur 0.5 mL [id number] completed HISTORY OF MEDICATION USE Medication Instructions [...] Lizzie Lorenzorez " assessment of health literacy ([facility] 2014 Standards, 3C10) Adequate Lizzie [...] " assessment of health literacy ([facility] 2014 Standards, 3C10) Adequate Carol S Conde " passive cigarette smoke exposure No Carol S Conde " smoking status never smoker Carol S Conde drug use, illicit Never Ginette Pool " alcohol use Never Ginette Pool " social history reviewed E&M reviewed today Ginette Pool " assessment of health literacy ([facility] 2014 Standards, 3C10) Adequate Ginette [...] Luisasunita Cantrell " assessment of health literacy ([facility] 2014 Standards, 3C10) Adequate Maria [...] Lizzie Lorenzorez " assessment of health literacy ([facility] 2014 Standards, 3C10) Adequate Lizzie [...] " assessment of health literacy ([facility] 2014 Standards, 3C10) Adequate Jenise [...] Dixie Dunaway " assessment of health literacy ([facility] 2014 Standards, 3C10) Adequate Dixie [...] " assessment of health literacy ([facility] 2014 Standards, 3C10) Adequate Lizzie Farmer " passive cigarette smoke exposure No Lizzie Farmer " smoking status never smoker Lizzie Farmer assessment of health literacy ([facility] 2014 Standards, 3C10) Adequate Maria [...] " assessment of health literacy ([facility] 2014 Standards, 3C10) Adequate Meliza [...] " assessment of health literacy ([facility] 2014 Standards, 3C10) Adequate Lizzie Farmer " passive cigarette smoke exposure No Lizzie Farmer " smoking status never smoker Lizzie Lorenzorez " sexual orientation Heterosexual Marcela Latif " assessment of health literacy ([facility] 2014 Standards, 3C10) Adequate Marcela [...] " assessment of health literacy ([facility] 2014 Standards, 3C10) Adequate Ginette [...] " assessment of health literacy ([facility] 2014 Standards, 3C10) Adequate Marcela [...] " assessment of health literacy ([facility] 2014 Standards, 3C10) Adequate Ginette [...] " assessment of health literacy ([facility] 2014 Standards, 3C10) Adequate Susana Wright social history reviewed E&M reviewed today Ellen Dalyniz " passive cigarette smoke exposure No Ellen Dalyniz " smoking status never smoker Ellen Dalyniz " assessment of health literacy ([facility] 2014 Standards, 3C10) Adequate Ellen Walters " Exercise Program Referral T Eleln Walters " Weight Management Counseling Provided T [...] " assessment of health literacy ([facility] 2014 Standards, 3C10) Adequate Deyasarah Ramirezvez " sexual orientation Heterosexual Dixie Ray " passive cigarette smoke exposure No Dixie Ray " smoking status never smoker Dixie Ray " assessment of health literacy ([facility] 2014 Standards, 3C10) Adequate Dixie [...] Moe " smoking status never smoker Bingcriselda Ahbi " assessment of health literacy ([facility] 2014 Standards, 3C10) Adequate Isabel [...] E&M oriented to time, place, and person [facility] " assessment of judgment and insight E&M [...] E&M no depression, anxiety, or agitation Lisbet [facility] " Generalized Anxiety Disorder Questionnaire - [...] Anxiety Disorder Questionnaire - Question 2 0 Dyea Navarro " Generalized Anxiety Disorder Questionnaire - Question 1 0 Deya Navarro assessment of judgment and insight E&M intact Susanth Memo " mental status examination: orientation E&M oriented to time, place, and person Janetnasir Memo " assessment of mood and affect E&M no depression, anxiety, or agitation Rakan Memo " Generalized Anxiety Disorder Questionnaire - Question [...] Anxiety Disorder Questionnaire - Question 2 0 Isaebl Moe " Generalized Anxiety Disorder Questionnaire - [...] - - - Est Patient Detailed - 57193 Ofc Vst, Est Level III Est Patient Exp Problem - 32692 Vaccines Ordered - Print Consent/Declination Forms Urinalysis - Dip only - In House Est Patient Detailed - 54244 Est Patient Exp Problem - 84937 Ofc Vst, Est Level III Est Patient Exp Problem - 63584 Est Patient Detailed - 87598 Ofc Vst, Est Level III Ofc Vst, Est Level III Rapid Strep - In House Rapid Flu - In House Est Patient Detailed - 99115 Est Patient Detailed - 85511 IM or SQ Injection Injection, ketorolac tromethamine (toradol), per 15 mg IM or SQ Injection Injection, dexamethasone sodium phosphate, 1mg Est Patient Detailed - 22516 IM or SQ Injection Injection, ketorolac tromethamine (toradol), per 15 mg Est Patient Detailed - 28426 Ear Irrigation Est Patient Detailed - 52827 IM or SQ Injection Injection, dexamethasone sodium phosphate, 1mg Urinalysis - Dip only - In House Rapid Strep - In House Est Patient Exp Problem - 55372 Est Patient Detailed - 21806 Est Patient Exp Problem - 24150 Est Patient Well Exam (18 - 39 Yrs) - 21223 Est Patient Exp Problem - 41737 New Patient Exp Problem - 75536 HISTORY OF PROCEDURES Procedure Date Procedure Name Provider Procedure Notes Status Vaccines Ordered - Print Consent/Declination Forms Lisbet Geraldo completed Urinalysis - Dip only - In House Lisbet Geraldo completed Rapid Strep - In House Lisbet Geraldo completed Rapid Flu - In House Lisbet Geraldo completed IM or SQ Injection Lisbet Geraldo completed Injection, ketorolac tromethamine (toradol), per 15 mg Lisbet Geraldo NDC: [id number]. completed IM or SQ Injection Lisbet Geraldo completed Injection, dexamethasone sodium phosphate, 1mg Lisbet Geraldo NDC: [id number]. completed IM or SQ Injection Lisbet Geraldo completed Injection, ketorolac tromethamine (toradol), per 15 mg Lisbet Geraldo NDC: [id number]. completed Ear Irrigation Lisbet Geraldo completed IM or SQ Injection Lisbet Geraldo 4mg IM Dexamethasone completed Injection, dexamethasone sodium phosphate, 1mg Lisbet Geraldo NDC: [id number]. completed Urinalysis - Dip only - In House Lisbet Geraldo completed Rapid Strep - In House Lisbet Geraldo completed GOALS No Information Available HEALTH CONCERNS No Information Available
--- OUTSIDE RECORDS SUMMARY | 2019-05-24 13:30 | XMS REPORT ---
Author Author Admin, [place] Organization Unknown Address Unknown Phone Unavailable PROBLEMS Condition Status Date Provider Notes Screening exam for breast cancer active Lisbet Geraldo Galactorrhea active Lisbet Geraldo Hyperprolactinemia active Lisbet Geraldo Conscious sedation medical clearance [...] Geraldo Arthritis of spine active Janetnasir Memo bucio, confirmed on xray, has scoliosis convex to right BMI 32.0-32.9 active Rakan Hampton Obesity active Rakan Hampton Hypertension active Lisbet Geraldo Scoliosis active Lisbet Geraldo Lower back pain active Lisbet Geraldo ENCOUNTERS Date Type Provider Location Encounter Diagnosis - Ambulatory Encounter Elizabeth Garcia [facility] UNK - Ambulatory Encounter Lisbet Geraldo Lisbet Geraldo [facility] Hyperprolactinemia - Ambulatory Encounter Lisbet Geraldo Lisbet Geraldo [facility] UNK - Ambulatory Encounter Lisbet Geraldo Lisbet Geraldo [facility] UNK - Ambulatory Encounter Lisbet Geraldo Lisbet Geraldo [facility] UNK - Ambulatory Encounter Lisbet Geraldo Lisbet Geraldo [facility] UNK - Ambulatory Encounter Lisbet Geraldo Lisbet Geraldo [facility] UNK - Ambulatory Encounter Lisbet Geraldo Lisbet Geraldo [place] [facility] UNK - Ambulatory Encounter Lisbet Geraldo Lisbet Geraldo [facility] UNK - Ambulatory Encounter Lisbet Geraldo Lisbet Geraldo Lizzie Combs [facility] Conscious sedation medical clearance examHyperprolactinemiaGalactorrheaScreening exam for breast cancer - Ambulatory Encounter Lisbet Geraldo Lisbet Geraldo [facility] UNK - Ambulatory Encounter Lisbet Geraldo [facility] - [facility]ulatory En[facility] Lisbet Geraldo Lisbet [facility]eraldo [facility] - Ambulatory Encounter Lisbet Geraldo Lisbet Geraldo [facility] UNK - Ambulatory Encounter Lisbet Lorenzanaome [facility] UNK - Ambulatory Encounter Lisbet Geraldo Chow [facility] UNK - Ambulatory Encounter Lisbet Chow [facility] UNK - Ambulatory Encounter Lisbet Conde [facility] Viral URI - Ambulatory Encounter Fax [...] Services UNK - Ambulatory Encounter Lisbet Chow [facility] UNK - Ambulatory Encounter Lisbet Chow [facility] UNK - Ambulatory Encounter Lisbet Chow [facility] UNK - Ambulatory Encounter Fax Status [facility] UNK - Ambulatory Encounter Fax Status [facility] UNK - Ambulatory Encounter Lisbet Chow [facility] UNK - Ambulatory Encounter Lisbet Chow [facility] UNK - Ambulatory Encounter Lisbet Pearcequin Meliza Combs Ginette Pool [facility] Abdominal pain - Ambulatory Encounter Lisbet Geraldo Lisbet Chow [facility] UNK - Ambulatory Encounter Lisbet Geraldo Lisbet Chacon Conde [facility] UNK - Ambulatory Encounter [facility] - [facility] En[facility] Lisbet Geraldo Lisbet Geraldo [facility] En[facility] Lisbet Geraldo Lisbet Geraldo [facility] UNK - Ambulatory Encounter Lisbet Geraldo Lisbet Rosesunita Cantrell [facility] UNK - Ambulatory Encounter Lisbet Geraldo Lisbet Geraldo [facility] UNK - Ambulatory Encounter Lisbet Geraldo Lisbet Farmer [facility] Cerumen impaction, leftViral URI - Ambulatory Encounter Lisbet Geraldo [facility] - Ambulatory Encounter Lisbet Geraldo [facility] - [facility] Encounter Lisbet Geraldo Lisbet Chow [facility] UNK - Ambulatory Encounter Lisbet Geraldo Lisbet Geraldo Roslyn Oliveros [facility] AnemiaCough - Ambulatory Encounter Lisbet Geraldo [facility] - Ambulatory Encounter Yolanda Morgan [facility] UNK - Ambulatory Encounter Yolanda Morgan [facility] UNK - Ambulatory Encounter Lisbet Geraldo Lisbet Geraldo [facility] UNK - Ambulatory Encounter Lisbet Geraldo Lisbet Geraldo Morgan [facility] Chest wall pain - Ambulatory Encounter Lisbet Geraldo Lisbet Geraldo [facility] UNK - Ambulatory Encounter Lisbet Geraldo Chow [facility] UNK - Ambulatory Encounter Lisbet Geraldo Lisbet Geraldo Lizzie [facility] - Ambulatory Encounter Lisbet Geraldo Lisbet Geraldo [facility] UNK - Ambulatory Encounter Lisbet Geraldo Lisbet Geradlo [facility] UNK - Ambulatory Encounter Lisbet Geraldo Lisbet Geraldo Maria Luisa [facility] Allergic rhinitisUrinary tract infectionViral URI - Ambulatory Encounter Lisbet Geraldo Lisbet Geraldo [facility] UNK - Ambulatory Encounter Lisbet Geraldo Lisbet Geraldo Jenna Diego [facility] UNK - Ambulatory Encounter Lisbet Geraldo Lisbet Geraldo [facility] UNK - Ambulatory Encounter Lisbet Geraldo Lisbet Geraldo Lizzie Combs [facility] Upper respiratory infection - Ambulatory Encounter Fax Status [facility] - Ambulatory Encounter Fax Status [facility] UNK - Ambulatory Encounter Fax Status [facility] UNK - Ambulatory Encounter Fax Status [facility] UNK - Ambulatory Encounter Fax Status [facility] UNK - Ambulatory Encounter Fax Status [facility] UNK - Ambulatory Encounter Lisbet Geraldo Chow [facility] UNK - Ambulatory Encounter Lisbet Geraldo White Roslyn Newman [facility] UNK - Ambulatory Encounter Lisbet Geraldo [facility] - Ambulatory Encounter Lisbet Geraldo Chow [facility] UNK - Ambulatory Encounter Lisbet Geraldo Chow Vick Latif [facility] UNK - Ambulatory Encounter Lisbet Geraldo Chow [facility] UNK - Ambulatory Encounter Lisbet Geraldo [facility] - Ambulatory Encounter Lisbet Geraldo Chow [facility] UNK - Ambulatory Encounter Lisbet Geraldo Chow [facility] UNK - Ambulatory Encounter Lisbet Geraldo Chow [facility] UNK - Ambulatory Encounter Lisbet Geraldo Chow Vick Peng [facility] Cerumen impaction, bilateralNeck pain - Ambulatory Encounter Marquise Landeros [facility] UNK - Ambulatory Encounter Lisbet Geraldo Chow [facility] UNK - Ambulatory Encounter Lisbet Geraldo Chow [facility] UNK - Ambulatory Encounter Lisbet Geraldo Chow [facility] UNK - Ambulatory Encounter Lisbet Geraldo Chow Lizzie Latif [facility] Pharyngitis, acute - Ambulatory Encounter Fax Status [facility] UNK - Ambulatory Encounter Fax Status [facility] UNK - Ambulatory Encounter Fax Status [facility] UNK - Ambulatory Encounter Lisbet Geraldo Chow Clive Rodriguez Jeffries [facility] Pelvic mass - Ambulatory Encounter Fax Status [facility] UNK - Ambulatory Encounter Fax Status [facility] UNK - Ambulatory Encounter Fax Status [facility] UNK - Ambulatory Encounter Lisbet Geraldo Lisbet Geraldo [facility] UNK - Ambulatory Encounter Lisbet Geraldo Lisbet Geraldo [facility] UNK - Ambulatory Encounter Lisbet Geraldo Chow [facility] UNK - Ambulatory Encounter Fax Status [facility] UNK - Ambulatory Encounter Fax Status [facility] UNK - Ambulatory Encounter Fax Status [facility] UNK - Ambulatory Encounter Lizzie Frausto Geraldo Lisbet Geraldo Mina Conde [facility] UNK - Ambulatory Encounter Scot Martinezillo [facility] UNK - Ambulatory Encounter Scot Ladd [facility] UNK - Ambulatory Encounter Lisbet Geraldo Lisbet Geraldo [facility] UNK - Ambulatory Encounter Lisbet Geraldo Chow Roslyn Jacobs [facility] Lower back pain - Ambulatory Encounter [place] [facility] UNK - Ambulatory Encounter [place] [facility] UNK - Ambulatory Encounter [place] [facility] UNK - Ambulatory Encounter [place] [facility] UNK - Ambulatory Encounter [place] [facility] UNK - Ambulatory Encounter [place] [facility] UN[facility] - Ambulatory Encounter Lisbet Geraldo Frausto [facility] UNK - Ambulatory Encounter Lisbet Geraldo Frausto [facility] UNK - Ambulatory Encounter Lisbet Geraldo Frausto Geraldo [facility] UNK - Ambulatory Encounter Lisbet Geraldo Lisbet Grealdo Meliza Jacobs [facility] Acute bronchitisLeg pain, right - Ambulatory Encounter [place] T[place] [facility] UNK - Ambulatory Encounter [place] [facility] UNK - Ambulatory Encounter [place] [facility] UNK - Ambulatory Encounter Vick Turner [facility] UNK - Ambulatory Encounter Vick Turner [facility] UNK - Ambulatory Encounter Lisbet Chow [facility] UNK - Ambulatory Encounter Lisbet Geraldo Chow [facility] UNK - Ambulatory Encounter Lisbet Chow [facility] UNK - Ambulatory Encounter Lisbet Mckeonz [facility] UTI (urinary tract infection) - Ambulatory Encounter Lisbet Chow [facility] UNK - Ambulatory Encounter Lisbet Chow [facility] UNK - Ambulatory Encounter Scot Ladd [facility] UNK - Ambulatory Encounter Scot Ladd [facility] UNK - Ambulatory Encounter Lisbte Chow [facility] UNK - Ambulatory Encounter Lisbet Chow Jenna Navarro [facility] Annual examStd screeningScreening for lipid disorderScreening for diabetes mellitus - Ambulatory Encounter Rakan Hampton [facility] UNK - Ambulatory Encounter Rakan Hampton [facility] UNK - Ambulatory Encounter Ezequiel Hampton [facility] ObesityBMI 32.0-32.9Arthritis of spine - Ambulatory Encounter Nahed Dalton [facility] UNK - Ambulatory Encounter Nahed Dalton [facility] UNK - Ambulatory Encounter [facility] - Ambulatory Encounter Dixie Schillingz [facility] UNK - Ambulatory Encounter Rakan Hampton [facility] UNK - Ambulatory Encounter Lisbet Frausto Geraldo [facility] UNK - Ambulatory Encounter Elaina Alejandro Lisbet Geraldo [facility] Lower back painScoliosisHypertension - Ambulatory Encounter Nahed Dalton [facility] UNK - Ambulatory Encounter Nahed Dalton [facility] UNK - Ambulatory Encounter [facility] Date Observation Value Provider oxygen saturation, oximetry 99 % Lizzie Farmer " blood pressure, diastolic 84 mm[Hg] Lizzie Farmer " blood pressure, systolic 130 mm[Hg] Lizzie [...] Lizzie Farmer " height E&M 62 [in_i] Lizize Farmer " height in centimeters E&M 157.48 cm Lizzie Farmer oxygen saturation, oximetry 97 % Carol Conde " blood pressure, diastolic 86 mm[Hg] [...] height in centimeters E&M 157.48 cm Jenise Domo oxygen saturation, oximetry 98 % Maria Luisa Cantrell " blood pressure, diastolic 82 mm[Hg] Maria Luisa Cantrell " blood pressure, systolic 120 mm[Hg] Maria Luisa Cantrell " respiratory rate E&M 18 /min Maria Luisa Cantrell " pulse rate E&M 68 /min Maria Luisa Cantrell " temperature E&M 98.1 [degF] Maria Luisa Cantrell " weight E&M 189.40 lbs. Maria Luisa Cantrell " weight in kilograms E&M 86.09 kg Maria Luisa Cantrell " method used to obtain blood pressure automatic Maria Luisa Cantrell " Blood Pressure Position 01 sitting Maria Luisasunita Cantrell " blood pressure, site #1 left arm Maria Luisasunita Cantrell " temperature site oral Maria Luisasunita Cantrell " height E&M 62 [in_i] Maria Luisa Cantrell " height in centimeters E&M 157.48 cm Maria Luisa Harmonales temperature site oral Lizzie Farmer " method [...] used to obtain blood pressure automatic Dixie Dunaway " Blood Pressure Position 01 sitting Dixie Dunaway " blood pressure, site #1 left arm Dixie Dunaway " blood pressure, diastolic 80 mm[Hg] Dixie Dunaway " blood pressure, systolic 120 mm[Hg] Dixie Dunaway " respiratory rate E&M 16 /min Dixie Dunaway " pulse rate E&M 88 /min Dixie Gume " temperature site oral Dixie Dunaway " temperature E&M 98.3 [degF] Dixie Dunaway " weight E&M 195.60 lbs. Dixie Dunaway " weight in kilograms E&M 88.91 kg [...] centimeters E&M 157.48 cm Maria Luisasunita Cantrell " temperature site oral Maria Luisa Cantrell " blood pressure, site #1 left arm Maria Luisa Cantrell " Blood Pressure Position 01 sitting Maria Luisa Cantrell " method used to obtain blood [...] Lizzie Farmer oxygen saturation, oximetry 97 % Marcela Latif [...] " oxygen saturation, oximetry 98 % Ellen Walters " blood pressure, diastolic 69 mm[Hg] Ellen Walters " blood pressure, systolic 111 mm[Hg] Ellen Walters " respiratory rate E&M 20 /min Ellen Walters " pulse rate E&M 82 /min Ellen Walters " temperature E&M 98.4 [degF] Ellen Walters " weight E&M 177.20 lbs. Ellenbrandie Walters " weight in kilograms E&M 80.55 kg Ellen Walters " height E&M 62 [in_i] Ellen Walters " height in centimeters E&M 157.48 cm Ellen Walters oxygen saturation, oximetry 98 % Deyasa Navarro " method used to obtain blood pressure automatic Deya Navarro " Blood Pressure Position 01 sitting Deya Ramon " blood pressure, site #1 right arm Deya Navarro " blood pressure, diastolic 80 mm[Hg] Deya Navarro " blood pressure, systolic 114 mm[Hg] Deya Navarro " respiratory rate E&M 20 /min Deya Navarro " pulse rate E&M 80 /min Deya Navarro " temperature site tympanic Deya Ramon " temperature E&M 97.8 [degF] Deya Navarro " weight E&M 177.20 lbs. 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 - External - X-RAY RESULTS Date Observation [...] " influenza virus A antigen negative Lizzie Darian alanine aminotransferase (SGPT), serum 24 1/L [employer] [...] ketones, urine, by test strip negative Lizzie Darian " blood in urine (hemoglobin) by dipstick negative Lizzie Farmer " protein, urine, semiquantitative (dipstick) negative Lizzie Farmer " urobilinogen, urine, semiquantitative (dipstick) negative Lizzie Farmer " nitrite, urine, semiquantitative negative Lizzie Farmer " leukocyte esterase, urine, by dipstick negative Lizzie Farmer " appearance, urine clear Lizzie Farmer " urine color yellow Lizzie Darian urine culture Klebsiella pneumoniae [facility] Abnormal " [...] Status Fluzone Quadrivalent IM PF 0.5 ML [facility] [address]-04 San[employer]i Pasteur 0.5 mL [id number] completed HISTORY OF MEDICATION USE Medication Instructions Dates Provider Comments HYDROXYZINE HCL 25 MG ORAL TABLET 1 by mouth every 6 hours as needed Lisbet Geraldo DELSYM 30 MG/5ML ORAL SUSPENSION EXTENDED RELEASE [...] a day as needed for cough Lisbet Lorenzanaome COLD MULTI-SYMPTOM DAYTIME 10-5-325 MG ORAL TABLET use as directed Lisbet Lorenzanaome ZYRTEC ALLERGY 10 MG ORAL TABLET 1 [...] Geraldo SOCIAL HISTORY Date Observation Value Provider time of call 05/16/2019 8:35 AM Chely Torrez drug use, illicit Never Lizzie Farmer " alcohol use Never Lizzie Farmer " social history reviewed E&M reviewed today Lizzie Rankinierrez " sexual orientation Heterosexual Lizzie Lorenzorez " assessment of health literacy ([facility] 2014 Standards, 3C10) Adequate Lizzie Farmer " [...] " assessment of health literacy ([facility] 2014 Standards, 3C10) Adequate Carol S Conde " passive cigarette smoke exposure No Carol S Conde " smoking status never smoker Carol S Conde drug use, illicit Never Ginette Pool " alcohol use Never Ginette Pool " social history reviewed E&M reviewed today Ginette Pool " assessment of health literacy ([facility] 2014 Standards, 3C10) Adequate Ginette Pool " [...] " assessment of health literacy ([facility] 2014 Standards, 3C10) Adequate Maria Luisa Cantrell [...] " assessment of health literacy ([facility] 2014 Standards, 3C10) Adequate Lizzie Farmer " [...] " assessment of health literacy ([facility] 2014 Standards, 3C10) Adequate Jenise Oliveros " [...] " assessment of health literacy ([facility] 2014 Standards, 3C10) Adequate Dixie Dunaway " [...] " assessment of health literacy ([facility] 2014 Standards, 3C10) Adequate Lizzie Farmer " passive cigarette smoke exposure No Lizzie Farmer " smoking status never smoker Lizzie Farmer assessment of health literacy ([facility] 2014 Standards, 3C10) Adequate Maria Luisa Óscar " sexual orientation Heterosexual Maria Luisa Cantrell " passive cigarette smoke exposure No Maria Luisasunita Cantrell " drug use, illicit Never Maria Luisasunita Cantrell " alcohol use Never Maria Luisasunita Cantrell " smoking status never smoker Maria Luisa Cantrell " social history reviewed E&M reviewed today Maria Luisasunita Cantrell Exercise Program Referral T Lisbet Geraldo " Weight Management Counseling Provided T Lisbet Geraldo " Nutrition intervention T Lisbet Geraldo " drug use, illicit Never Meliza Combs " alcohol use Never Meliza Combs " social history reviewed E&M reviewed today Meliza Combs " sexual orientation Heterosexual Meliza Combs " assessment of health literacy ([facility] 2014 Standards, 3C10) Adequate Meliza Combs " passive cigarette smoke exposure No Meliza Combs " smoking status never smoker Meliza Combs Exercise Program Referral T Lisbet Geraldo " Weight Management Counseling Provided T Lisbet Geraldo " Nutrition intervention T Lisbet Geraldo social history reviewed E&M reviewed today Lisbet Geraldo " Exercise Program Referral T Lisbet Geraldo " Weight Management Counseling Provided T Lisbet Lorenzanaome " Nutrition intervention T Lisbet Lorenzanaome drug use, illicit Never Lizzie Farmer " alcohol use Never Lizzie Farmer " social history reviewed E&M reviewed today Lizzie Farmer " sexual orientation Heterosexual Lizzie Farmer " assessment of health literacy ([facility] 2014 Standards, 3C10) Adequate Lizzie Farmer " passive cigarette smoke exposure No Lizzie Farmer " smoking status never smoker Lizzie Loreznorez " sexual orientation Heterosexual Marcela Latif " assessment of health literacy ([facility] 2014 Standards, 3C10) Adequate Marcela Latif " is there any chance that you could be ? No Marcela Latif " passive cigarette smoke exposure No Marcela Latif " smoking status never smoker Marcela Latif Exercise Program Referral T Lisbet Lorenzanaome " Weight Management Counseling Provided T Lisbet Lorenzanaome " Nutrition intervention T Lisbet Geraldo drug use, illicit Never Ginette Pool " alcohol use Never Ginette Pool " social history reviewed E&M reviewed today Ginette Pool " assessment of health literacy ([facility] 2014 Standards, 3C10) Adequate Ginette Pool " passive cigarette smoke exposure No Ginette Pool " smoking status never smoker Ginette Pool drug use, illicit Never Lizzie Lorenzorez " alcohol use Never Lizzie Farmer " social history reviewed E&M reviewed today Lizzie Farmer " Exercise Program Referral T Lisbet Lorenzanaome " Weight Management Counseling Provided T Lisbet Geraldo " Nutrition intervention T Lisbet Geraldo " sexual orientation Heterosexual Marcela Latif " assessment of health literacy ([facility] 2014 Standards, 3C10) Adequate Marcela Latif " is there any chance that you could be ? No Marcela Latif " passive cigarette smoke exposure No Marcela Latif " smoking status never smoker Marcela Latif time of call 09/16/2017 3:15 PM Mina Conde Exercise Program Referral T Lisbet Lorenzanaome " Weight Management Counseling Provided T Lisbet Geraldo " Nutrition intervention T Lisbet Geraldo " drug use, illicit Never Ginette Pool " alcohol use Never Ginette Pool " social history reviewed E&M reviewed today Ginette Pool " assessment of health literacy ([facility] 2014 Standards, 3C10) Adequate Ginette Pool " [...] " assessment of health literacy ([facility] 2014 Standards, 3C10) Adequate Susana Wright social history reviewed E&M reviewed today Ellenmeagan Mckeonz " passive cigarette smoke exposure No Ellen Walters " smoking status never smoker Ellen Walters " assessment of health literacy ([facility] 2014 Standards, 3C10) Adequate Ellen Walters " Exercise Program Referral T Ellen Walters " Weight Management Counseling Provided T Ellen Walters " Nutrition intervention T Ellen Walters Exercise Program Referral T Lisbet Geraldo " Weight Management Counseling Provided T Lisbet Geraldo " Nutrition intervention T Lisbet Geraldo social history reviewed E&M reviewed today Deyasarah Navarro " sexual orientation Heterosexual Deya Navarro " passive cigarette smoke exposure No Deya Navarro " smoking status never smoker Deya Navarro " assessment of health literacy ([facility] 2014 Standards, 3C10) Adequate Deya Navarro " sexual orientation Heterosexual Dixie Cory " passive cigarette smoke exposure No Dixie Ray " smoking status never smoker Dixie Lemavez " assessment of health literacy ([facility] 2014 Standards, 3C10) Adequate Dixie Lemavez " [...] Never Everoctavio Moe " alcohol use Never Everoctavio Moe " sexual orientation Heterosexual Isabel Moe " is there any chance that you could be ? No Everearlinee Abhi " passive cigarette smoke exposure No Lucianoearlinecriselda Abhi " smoking status never smoker Isabel Moe " assessment of health literacy ([facility] 2014 Standards, 3C10) Adequate Isabel Moe FUNCTIONAL [...] affect E&M no depression, anxiety, or agitation Lisbte Geraldo " Generalized Anxiety Disorder Questionnaire - [...] E&M oriented to time, place, and person [facility] " assessment of judgment and insight E&M intact [facility] " assessment of mood and affect E&M no depression, anxiety, or agitation [facility] " Generalized Anxiety Disorder Questionnaire - Question 2 0 Meliza Combs " Generalized Anxiety Disorder Questionnaire - Question 1 0 Meliza Combs assessment of judgment and insight E&M intact [facility] " assessment of mood and affect E&M no depression, anxiety, or agitation [facility] assessment of judgment and insight E&M intact [facility] " assessment of mood and affect E&M no depression, anxiety, or agitation [facility] Generalized Anxiety Disorder Questionnaire - Question 2 0 Lizzie Farmer " Generalized Anxiety Disorder Questionnaire - Question 1 0 Lizzie Farmer Generalized Anxiety Disorder Questionnaire - Question 2 0 Marcela Latif " Generalized Anxiety Disorder Questionnaire - Question 1 0 Marcela Latif assessment of judgment and insight E&M intact [facility] " assessment of mood and affect E&M no depression, anxiety, or agitation [facility] assessment of judgment and insight E&M intact [facility] " assessment of mood and affect E&M no depression, anxiety, or agitation [facility] Generalized Anxiety Disorder Questionnaire - Question 2 0 Ginette Pool " Generalized Anxiety Disorder Questionnaire - Question 1 0 Ginette Pool Generalized Anxiety Disorder Questionnaire - Question 2 0 Marcela Latif " Generalized Anxiety Disorder Questionnaire - Question 1 0 Marcela Latif assessment of judgment and insight E&M intact [facility] " assessment of mood and affect E&M no depression, anxiety, or agitation Lisbet Geraldo " Generalized Anxiety Disorder Questionnaire - Question 2 0 Ginette Pool " Generalized Anxiety Disorder Questionnaire - Question 1 0 Ginette Pool assessment of judgment and insight E&M intact Lisbet Geraldo " Generalized Anxiety Disorder Questionnaire - Question 2 0 Susana Kyle " Generalized Anxiety Disorder Questionnaire - Question [...] of judgment and insight E&M intact Susanth Sivaraman " mental status examination: orientation E&M oriented [...] - - - Est Patient Detailed - 52999 Ofc Vst, Est Level III Est Patient Exp Problem - 64018 Vaccines Ordered - Print Consent/Declination Forms Urinalysis - Dip only - In House Est Patient Detailed - 62811 Est Patient Exp Problem - 03395 Ofc Vst, Est Level III Est Patient Exp Problem - 27809 Est Patient Detailed - 51845 Ofc Vst, Est Level III Ofc Vst, Est Level III Rapid Strep - In House Rapid Flu - In House Est Patient Detailed - 61196 Est Patient Detailed - 97876 IM or SQ Injection Injection, ketorolac tromethamine (toradol), per 15 mg IM or SQ Injection Injection, dexamethasone sodium phosphate, 1mg Est Patient Detailed - 60686 IM or SQ Injection Injection, ketorolac tromethamine (toradol), per 15 mg Est Patient Detailed - 20175 Ear Irrigation Est Patient Detailed - 05747 IM or SQ Injection Injection, dexamethasone sodium phosphate, 1mg Urinalysis - Dip only - In House Rapid Strep - In House Est Patient Exp Problem - 37528 Est Patient Detailed - 64863 Est Patient Exp Problem - 23155 Est Patient Well Exam (18 - 39 Yrs) - 37206 Est Patient Exp Problem - 34947 New Patient Exp Problem - 64376 HISTORY OF PROCEDURES Procedure Date Procedure Name Provider Procedure Notes Status Vaccines Ordered - Print Consent/Declination Forms Lisbet Geraldo completed Urinalysis - Dip only - In House Lisbet Geraldo completed Rapid Strep - In House Lisbet Geraldo completed Rapid Flu - In House Lisbet Geraldo completed IM or SQ Injection Lisbet Geraldo completed Injection, ketorolac tromethamine (toradol), per 15 mg Lisbet Geraldo NDC: [id number]. completed IM or SQ Injection Lisbet Geraldo completed Injection, dexamethasone sodium phosphate, 1mg Lisbet Geraldo NDC: [id number]. completed IM or SQ Injection Lisbet Geraldo completed Injection, ketorolac tromethamine (toradol), per 15 mg Lisbet Geraldo NDC: [id number]. completed Ear Irrigation Lisbet Geraldo completed IM or SQ Injection Lisbet Geraldo 4mg IM Dexamethasone completed Injection, dexamethasone sodium phosphate, 1mg Lisbet Geraldo NDC: [id number]. completed Urinalysis - Dip only - In House Lisbet Geraldo completed Rapid Strep - In House Lisbet Geraldo completed GOALS No Information Available HEALTH CONCERNS No Information Available
--- OUTSIDE RECORDS SUMMARY | 2019-05-24 13:31 | XMS REPORT ---
Author Author Admin, [place] Organization Unknown Address Unknown Phone Unavailable PROBLEMS [...] Diagnosis - Ambulatory Encounter Elizabeth Garcia [facility] Services Contact Center UNK - Ambulatory Encounter Lisbet Geraldo Lisbet Geraldo [facility] Hyperprolactinemia - Ambulatory Encounter Lisbet Geraldo Lisbet Geraldo [facility] UNK - Ambulatory Encounter Lisbet Geraldo Lisbet Geraldo LinkLogic [facility] UNK - Ambulatory Encounter Lisbet Geraldo Lisbet Geraldo Link[facility] UNK - Ambulatory Encounter Lisbet Geraldo Lisbet Geraldo LinkLog[facility] UNK - Ambulatory Encounter Lisbet Geraldo Lisbet Geraldo LinkLogic [facility] UNK - Ambulatory Encounter Lisbet Geraldo Lisbet Geraldo [place] [facility] UNK - Ambulatory Encounter Lisbet Geraldo Lisbet Geraldo [facility] UNK - Ambulatory Encounter Lisbet Geraldo Lisbet Geraldo Lizzie Combs [facility] Conscious sedation medical clearance examHyperprolactinemiaGalactorrheaScreening exam for breast cancer - Ambulatory Encounter Lisbet Geraldo Lisbet Geraldo [facility] UNK - Ambulatory Encounter Lisbet Geraldo [facility] - Ambulatory Encounter Lisbet Geraldo Lisbet Geraldo [facility] UNK - Ambulatory Encounter Lisbet Geraldo Lisbet Geraldo LinkLogic [facility] UNK - Ambulatory Encounter Lisbet Lorenzanaome [facility] UNK - Ambulatory Encounter Lisbet Geraldo Chow LinkLogic [facility] UNK - Ambulatory Encounter Lisbet Chow [facility] UNK - Ambulatory Encounter Lisbet Conde [facility] Viral URI - Ambulatory Encounter Fax [...] Ambulatory Encounter Lisbet Chow LinkLogic [facility] UNK - Ambulatory Encounter Lisbet Chow LinkLogic [facility] UNK - Ambulatory Encounter Lisbet Chow [facility] UNK - Ambulatory Encounter Fax Status [facility] UNK - Ambulatory Encounter Fax Status [facility] UNK - Ambulatory Encounter Lisbet Chow [facility] UNK - Ambulatory Encounter Lisbet Chow [facility] UNK - Ambulatory Encounter Lisbet Pearcequin Meliza Combs Ginette Pool [facility] Abdominal pain - Ambulatory Encounter Lisbet Geraldo Lisbet Chow [facility] UNK - Ambulatory Encounter Lisbet Geraldo Lisbet Chacon Conde [facility] UNK - Ambulatory Encounter [facility] - [facility] Encounter Lisbet Geraldo Lisbet Geraldo Bri [facility] UNK - Ambulatory Encounter Lisbet Geraldo Lisbet Geraldo [facility] UNK - Ambulatory Encounter Lisbet Geraldo Lisbet Rosesunita Cantrell [facility] UNK - Ambulatory Encounter Lisbet Geraldo Lisbet Geraldo [facility] UNK - Ambulatory Encounter Lisbet Geraldo Lisbet Farmer [facility] Cerumen impaction, leftViral URI - Ambulatory Encounter Lisbet Geraldo [facility] UN[facility] - Ambulatory Encounter Lisbet Geraldo Lisbet Chow [facility] - Ambulatory Encounter Lisbet Geraldo Lisbet Chow [facility] UNK - Ambulatory Encounter Lisbet Geraldo Lisbet Geraldo Roslyn Oliveros [facility] AnemiaCough - Ambulatory Encounter Lisbet Geraldo Lisbet Geraldo [facility] UNK - Ambulatory Encounter Yolanda Morgan [facility] UNK - Ambulatory Encounter Yolanda Morgan [facility] UNK - Ambulatory Encounter Lisbet Geraldo Lisbet Geraldo [facility] UNK - Ambulatory Encounter Lisbet Geraldo Lisbet Geraldo Morgan [facility] Chest wall pain - Ambulatory Encounter Lisbet Geraldo Lisbet Geraldo LinkLogic [facility] UNK - Ambulatory Encounter Lisbet Geraldo Chow [facility] UNK - Ambulatory Encounter Lisbet Geraldo Lisbet Geraldo Lizzie [facility] UN[facility] - Ambulatory Encounter Lisbet Geraldo Lisbet Geraldo [facility] UNK - Ambulatory Encounter Lisbet Geraldo Lisbet Geraldo [facility] UNK - Ambulatory Encounter Lisbet Geraldo Lisbet Geraldo Maria [facility] Allergic rhinitisUrinary tract infectionViral URI - Ambulatory Encounter Lisbet Geraldo Lisbet Geraldo LinkLogic [facility] UNK - Ambulatory Encounter Lisbet Geraldo Lisbet Geraldo Jenan Diego [facility] UNK - Ambulatory Encounter Lisbet Geraldo Lisbet Geraldo [facility] UNK - Ambulatory Encounter Lisbet Geraldo Lisbet Geraldo Lizzie Combs [facility] Upper respiratory infection - Ambulatory Encounter Fax Status [facility] UNK - Ambulatory Encounter Fax Status [facility] UNK - Ambulatory Encounter Fax Status [facility] UNK - Ambulatory Encounter Fax Status [facility] UNK - Ambulatory Encounter Fax Status [facility] UNK - Ambulatory Encounter Fax Status [facility] UNK - Ambulatory Encounter Lisbet Geraldo Chow [facility] UNK - Ambulatory Encounter Lisbet Geraldo White Roslyn Newman [facility] UNK - Ambulatory Encounter Lisbet Geraldo Chow [facility] UNK - Ambulatory Encounter Lisbet Geraldo Chow [facility] UNK - Ambulatory Encounter Lisbet Geraldo Chow Vick Latif [facility] UNK - Ambulatory Encounter Lisbet Geraldo Chow [facility] UNK - Ambulatory Encounter Lisbet eGraldo Chow [facility] UNK - Ambulatory Encounter Lisbet Geraldo Chow [facility] UNK - Ambulatory Encounter Lisbet Geraldo Chow [place] UNK - Ambulatory Encounter Lisbet Geraldo Chow [facility] UNK - Ambulatory Encounter Lisbet Geraldo Chow Vick Peng [facility] Cerumen impaction, bilateralNeck pain - Ambulatory Encounter Marquise Landeros [facility] UNK - Ambulatory Encounter Lisbet Geraldo Chow [facility] UNK - Ambulatory Encounter Lisbet Geraldo Chow [facility] UNK - Ambulatory Encounter Lisbet Geraldo Chow [facility] UNK - Ambulatory Encounter Lisbet Geraldo Chow Lizzie Latif [facility] Pharyngitis, acute - Ambulatory Encounter Fax Status Link[facility] UNK - Ambulatory Encounter Fax Status [facility] UNK - Ambulatory Encounter Fax Status [facility] UNK - Ambulatory Encounter Lisbet Geraldo Chow Clive Rodriguez Jeffries [facility] Pelvic mass - Ambulatory Encounter Fax Status LinkLog[facility] UNK - Ambulatory Encounter Fax Status LinkLogic [facility] UNK - Ambulatory Encounter Fax Status LinkLogic [facility] UNK - Ambulatory Encounter Lisbet Geraldo Lisbet Geraldo [facility] UNK - Ambulatory Encounter Lisbet Geraldo Lisbet Geraldo LinkLogic [facility] UNK - Ambulatory Encounter Lisbet Geraldo Chow [facility] UNK - Ambulatory Encounter Fax Status LinkLog[facility] UNK - Ambulatory Encounter Fax Status LinkLog[facility] UNK - Ambulatory Encounter Fax Status Link[facility] UNK - Ambulatory Encounter Lizzie Frausto Geraldo Lisbet Geraldo Mina Conde [facility] Contact Center UNK - Ambulatory Encounter Scot Martinezillo [facility] UNK - Ambulatory Encounter Scot Ladd [facility] UNK - Ambulatory Encounter Lisbet Geraldo Lisbet Geraldo [facility] UNK - Ambulatory Encounter Lisbet Geraldo Chow Roslyn Jacobs [facility] Lower back pain - Ambulatory Encounter Carolina Tomas [facility] UNK - Ambulatory Encounter [place] Tomas [facility] UNK - Ambulatory Encounter [place] Tomas [facility] UNK - Ambulatory Encounter [place] Tomas Med[facility]herence [facility] UNK - Ambulatory Encounter [place] Tomas [facility]herence [facility] UNK - Ambulatory Encounter [place] Tomas [facility] UNK - Ambulatory Encounter Lisbet Geraldo Frausto [facility] UNK - Ambulatory Encounter Lisbet Geraldo Frausto [facility] - Ambulatory Encounter Lisbet Geraldo Frausto Geraldo [facility] UNK - Ambulatory Encounter Lisbet Geraldo Lisbet Geraldo Meliza Jacobs [facility] Acute bronchitisLeg pain, right - Ambulatory Encounter Carolina Tomas [facility] UNK - Ambulatory Encounter [place] Tomas [facility] UNK - Ambulatory Encounter [place] Tomas MedAdherence [facility] UNK - Ambulatory Encounter Vick Turner [facility] UNK - Ambulatory Encounter Vick Turner [facility] UNK - Ambulatory Encounter Lisbet Chow [facility] UNK - Ambulatory Encounter Lisbet Geraldo Chow [facility] UNK - Ambulatory Encounter Lisbet Chow [facility] UNK - Ambulatory Encounter Lisbet Mckeonz [facility] UTI (urinary tract infection) - Ambulatory Encounter Lisbet Chow [facility] UNK - Ambulatory Encounter Lisbet Chow [facility] UNK - Ambulatory Encounter Scot Ladd [facility] UNK - Ambulatory Encounter Scot Ladd [facility] UNK - Ambulatory Encounter Lisbet Chow [facility] UNK - Ambulatory Encounter Lisbet Chow Jenna Navarro [facility] Annual examStd screeningScreening for lipid disorderScreening for diabetes mellitus - Ambulatory Encounter Rakan Hampton [facility] UNK - Ambulatory Encounter Rakan Hampton [facility] UNK - Ambulatory Encounter Ezequiel Hampton [facility] ObesityBMI 32.0-32.9Arthritis of spine - Ambulatory Encounter Nahed Dalton [facility] UNK - Ambulatory Encounter Nahed Dalton [facility] UNK - [facility] Encounter Dixie Schillingz [facility] UNK - Ambulatory Encounter Rakan Hampton [facility] UNK - Ambulatory Encounter Lisbet Frausto Geraldo [facility] UNK - Ambulatory Encounter Elaina Alejandro Lisbet Geraldo [facility] Jacobs [facility] Lower back painScoliosisHypertension - Ambulatory Encounter Nahed Dalton [facility] UNK - Ambulatory Encounter Nahed Dalton [facility] UNK - Ambulatory Encounter [facility]equiel [facility] V[facility]NS Date Observation Value Provider oxygen [...] - Diagnostic - X-RAY - OB / Manager Chemistry - External - X-RAY RESULTS Date Observation [...] Status Fluzone Quadrivalent IM PF 0.5 ML [facility] [id number] San[employer]i Pasteur 0.5 mL [id number] completed HISTORY OF MEDICATION USE Medication Instructions [...] Lizzie Lorenzorez " assessment of health literacy ([facility] 2014 Standards, 3C10) Adequate Lizzie Farmer " passive cigarette smoke exposure No Lizzei Farmer " smoking status never smoker Lizzie [...] S Conde " assessment of health literacy ([facility] 2014 Standards, 3C10) Adequate Carol S Conde " passive cigarette smoke exposure No Carol S Conde " smoking status never smoker Carol S Conde drug use, illicit Never Ginette Pool " alcohol use Never Ginette Pool " social history reviewed E&M reviewed today Ginette Pool " assessment of health literacy ([facility] 2014 Standards, 3C10) Adequate Ginette Pool [...] Luisa Cantrell " assessment of health literacy ([facility] 2014 Standards, 3C10) Adequate Maria Luisa [...] Lizzie Farmer " assessment of health literacy ([facility] 2014 Standards, 3C10) Adequate Lizzie Farmer [...] Jenise Oliveros " assessment of health literacy ([facility] 2014 Standards, 3C10) Adequate Jenise Oliveros [...] Dixie Dunaway " assessment of health literacy ([facility] 2014 Standards, 3C10) Adequate Dixie Dunaway [...] Lizzie Farmer " assessment of health literacy ([facility] 2014 Standards, 3C10) Adequate Lizzie Farmer " passive cigarette smoke exposure No Lizzie Farmer " smoking status never smoker Lizzie Farmer assessment of health literacy ([facility] 2014 Standards, 3C10) Adequate Maria Luisa [...] Meliza Combs " assessment of health literacy ([facility] 2014 Standards, 3C10) Adequate Meliza Combs [...] Lizzie Farmer " assessment of health literacy ([facility] 2014 Standards, 3C10) Adequate Lizzie Farmer " passive cigarette smoke exposure No Lizzie Farmer " smoking status never smoker Lizzie Lorenzorez " sexual orientation Heterosexual Marcela Latif " assessment of health literacy ([facility] 2014 Standards, 3C10) Adequate Marcela Latif " is there any chance that you could be ? No Marcela Latif " passive cigarette smoke exposure No Marcela Latif " smoking status never smoker Marcela Latif Exercise Program Referral T Lisbte Lorenzanaome " Weight Management Counseling Provided T Lisbet Lorenzanaome " Nutrition intervention T Lisbet Geraldo drug use, illicit Never Ginette Pool " alcohol use Never Ginette Pool " social history reviewed E&M reviewed today Ginette Pool " assessment of health literacy ([facility] 2014 Standards, 3C10) Adequate Ginette Pool [...] Marcela Latif " assessment of health literacy ([facility] 2014 Standards, 3C10) Adequate Marcela Latif [...] Ginette Pool " assessment of health literacy ([facility] 2014 Standards, 3C10) Adequate Ginette Pool [...] Susana Wright " assessment of health literacy ([facility] 2014 Standards, 3C10) Adequate Susana Wright social history reviewed E&M reviewed today Ellenmeagan Mckeonz " passive cigarette smoke exposure No Ellen Walters " smoking status never smoker Ellen Walters " assessment of health literacy ([facility] 2014 Standards, 3C10) Adequate Ellen Walters [...] Deya Navarro " assessment of health literacy ([facility] 2014 Standards, 3C10) Adequate Deya Navarro " sexual orientation Heterosexual Dixie Cory " passive cigarette smoke exposure No Dixie Ray " smoking status never smoker Dixie Lemavez " assessment of health literacy ([facility] 2014 Standards, 3C10) Adequate Dixie Lemavez [...] Abhi " passive cigarette smoke exposure No Lucianoearliencriselda Abhi " smoking status never smoker Isabel Moe " assessment of health literacy ([facility] 2014 Standards, 3C10) Adequate Isabel Moe [...] E&M oriented to time, place, and person [facility] " assessment of judgment and insight E&M intact [facility] " assessment of mood and affect E&M no depression, anxiety, or agitation [facility] " Generalized Anxiety Disorder Questionnaire - Question 2 0 Meliza Combs " Generalized Anxiety Disorder Questionnaire - Question 1 0 Meliza Combs assessment of judgment and insight E&M intact [facility] " assessment of mood and affect E&M no depression, anxiety, or agitation [facility] assessment of judgment and insight E&M intact [facility] " assessment of mood and affect E&M no depression, anxiety, or agitation [facility] Generalized Anxiety Disorder Questionnaire - Question 2 0 Lizzie Farmer " Generalized Anxiety Disorder Questionnaire - Question 1 0 Lizzie Farmer Generalized Anxiety Disorder Questionnaire - Question 2 0 Marcela Latif " Generalized Anxiety Disorder Questionnaire - Question 1 0 Marcela Latif assessment of judgment and insight E&M intact [facility] " assessment of mood and affect E&M no depression, anxiety, or agitation [facility] assessment of judgment and insight E&M intact [facility] " assessment of mood and affect E&M no depression, anxiety, or agitation [facility] Generalized Anxiety Disorder Questionnaire - Question 2 0 Ginette Pool " Generalized Anxiety Disorder Questionnaire - Question 1 0 Ginette Pool Generalized Anxiety Disorder Questionnaire - Question 2 0 Marcela Latif " Generalized Anxiety Disorder Questionnaire - Question 1 0 Marcela Latif assessment of judgment and insight E&M intact [facility] " assessment of mood and affect E&M [...] - - - Est Patient Detailed - 55874 Ofc Vst, Est Level III Est Patient Exp Problem - 09130 Vaccines Ordered - Print Consent/Declination Forms Urinalysis - Dip only - In House Est Patient Detailed - 17098 Est Patient Exp Problem - 39998 Ofc Vst, Est Level III Est Patient Exp Problem - 14748 Est Patient Detailed - 64425 Ofc Vst, Est Level III Ofc Vst, Est Level III Rapid Strep - In House Rapid Flu - In House Est Patient Detailed - 95134 Est Patient Detailed - 35841 IM or SQ Injection Injection, ketorolac tromethamine (toradol), per 15 mg IM or SQ Injection Injection, dexamethasone sodium phosphate, 1mg Est Patient Detailed - 72797 IM or SQ Injection Injection, ketorolac tromethamine (toradol), per 15 mg Est Patient Detailed - 68951 Ear Irrigation Est Patient Detailed - 25243 IM or SQ Injection Injection, dexamethasone sodium phosphate, 1mg Urinalysis - Dip only - In House Rapid Strep - In House Est Patient Exp Problem - 42970 Est Patient Detailed - 62758 Est Patient Exp Problem - 47595 Est Patient Well Exam (18 - 39 Yrs) - 31616 Est Patient Exp Problem - 18317 New Patient Exp Problem - 18319 HISTORY OF PROCEDURES Procedure Date Procedure Name Provider Procedure Notes Status Vaccines Ordered - Print Consent/Declination Forms Lisbet Geraldo completed Urinalysis - Dip only - In House Lisbet Geraldo completed Rapid Strep - In House Lisbet Geraldo completed Rapid Flu - In House Lisbet Geraldo completed IM or SQ Injection Lisbet Geraldo completed Injection, ketorolac tromethamine (toradol), per 15 mg Lisbet Geraldo NDC: [id number]. completed IM or SQ Injection Lisbet Geraldo completed Injection, dexamethasone sodium phosphate, 1mg Lisbet Geraldo NDC: [id number]. completed IM or SQ Injection Lisbet Geraldo completed Injection, ketorolac tromethamine (toradol), per 15 mg Lisbet Geraldo NDC: [id number]. completed Ear Irrigation Lisbet Geraldo completed IM or SQ Injection Lisbet Geraldo 4mg IM Dexamethasone completed Injection, dexamethasone sodium phosphate, 1mg Lisbet Geraldo NDC: [id number]. completed Urinalysis - Dip only - In House Lisbet Geraldo completed Rapid Strep - In House Lisbet Geraldo completed GOALS No Information Available HEALTH CONCERNS No Information Available
--- OUTSIDE RECORDS SUMMARY | 2019-05-24 13:32 | XMS REPORT ---
Author Author Admin, Pierce Organization Unknown Address Unknown Phone Unavailable PROBLEMS [...] convex to right BMI 32.0-32.9 active Rakan Hmapton Obesity active Rakan Hampton Hypertension active Lisbet Geraldo Scoliosis active Lisbet Geraldo Lower back pain active Lisbet Geraldo ENCOUNTERS Date Type Provider Location Encounter Diagnosis - Ambulatory Encounter Elizabeth Callmiriam Herrera [facility] Services UNK - Ambulatory Encounter Fax Status [facility] UNK - Ambulatory Encounter Fax Status [facility] Services UNK - Ambulatory Encounter Fax Status [facility] Services UNK - Ambulatory Encounter Lisbet Geraldo Lisbet Geraldo Nella Clifton Bertha Abdulaziz [facility] Services UNK - Ambulatory Encounter Elizabeth Garcia [facility] Services Contact Center UNK - Ambulatory Encounter Lisbet Geraldo Lisbet Geraldo Deena Wade [facility] Hyperprolactinemia - Ambulatory Encounter Lisbet Geraldo Lisbet Geraldo [facility] UNK - Ambulatory Encounter Lisbet Geraldo Lisbet Geraldo [facility] UNK - Ambulatory Encounter Lisbet Geraldo Lisbet Geraldo [facility] UNK - Ambulatory Encounter Lisbet Geraldo Lisbet Geraldo [facility] UNK - Ambulatory Encounter Lisbet Geraldo Lisbet Geraldo [facility] UNK - Ambulatory Encounter Lisbet Geraldo Lisbet Geraldo [place] Tomas [facility] UNK - Ambulatory Encounter Lisbet Geraldo Lisbet Geraldo [facility] UNK - Ambulatory Encounter Lisbet Geraldo Lisbet Geraldo Lizzie Combs [facility] Conscious sedation medical clearance examHyperprolactinemiaGalactorrheaScreening exam for breast cancer - Ambulatory Encounter Lisbet Geraldo Lorenzanaome [facility] UNK - Ambulatory Encounter Lisbet Geraldo Lorenzanaome [facility] UNK - Ambulatory Encounter Lisbet Geraldo Lorenzanaome [facility] UNK - Ambulatory Encounter Lisbet Geraldo Lisbet Geraldo [facility] UNK - Ambulatory Encounter Lisbet Geraldo Lorenzanaome [facility] UNK - Ambulatory Encounter Lisbet Lorenzanaome [facility] UNK - Ambulatory Encounter Lisbet Lorenzanaome [facility] UNK - Ambulatory Encounter Lisbet Geraldo Lorenzanaome Carol Conde [facility] Viral URI - Ambulatory Encounter [...] Ambulatory Encounter Lisbet Geraldo Chow [facility] UNK - Ambulatory Encounter Lisbet Chow [facility] UNK - Ambulatory Encounter Lisbet Geraldo Lorenzanaome [facility] UNK - Ambulatory Encounter Fax Status [facility] UNK - Ambulatory Encounter Fax Status [facility] UNK - Ambulatory Encounter Lisbet Geraldo [facility] - Ambulatory Encounter Lisbet Geraldo Lisbet Geraldo [facility] UNK - Ambulatory Encounter Lisbet Geraldo Lisbet Geraldo Elizabeth Newman [facility] Abdominal pain - Ambulatory Encounter Lisbet Geraldo Lisbet Geraldo [facility] UNK - Ambulatory Encounter Lisbet Geraldo Libset Geraldo Jenise Conde [facility] UNK - Ambulatory Encounter [facility] - Ambulatory Encounter Lisbet Geraldo Lisbet Geraldo [facility] - Ambulatory Encounter Lisbet Geraldo Lisbet Geraldo [facility] UNK - Ambulatory Encounter Lisbet Geraldo Lisbet Geraldo Maria Luisa Cantrell [facility] UNK - Ambulatory Encounter Lisbet Geraldo Lisbet Geraldo [facility] UNK - Ambulatory Encounter Lisbet Geraldo Lisbet Geraldo Lizzie Farmer [facility] Cerumen impaction, leftViral URI - Ambulatory Encounter Lisbet Geraldo [facility]do [facility] - Ambulatory Encounter Lisbet Geraldo [facility]eraldo [facility] UNK - Ambulatory Encounter Lisbet Geraldo Lisbet Geraldo [facility] UNK - Ambulatory Encounter Lisbet Geraldo Burden Oliveros [facility] AnemiaCough - Ambulatory Encounter Lisbet Geraldo Lisbet Geraldo [facility] UNK - Ambulatory Encounter Yolanda Morgan [facility] UNK - Ambulatory Encounter Yolanda Morgan [facility] UNK - Ambulatory Encounter Lisbet Geraldo Frausto Geraldo [facility] UNK - Ambulatory Encounter Lisbet Geraldo Chow Dixie Dunaway Yolanda Morgan [facility] Chest wall pain - Ambulatory Encounter Lisbet Geraldo Chow [facility] UNK - Ambulatory Encounter Lisbet Geraldo Lorenzanaome [facility] UNK - Ambulatory Encounter Lisbet Geraldo [facility] UNK - Ambulatory Encounter Lisbet Geraldo Chow [facility] UNK - Ambulatory Encounter Lisbet Geraldo Chow [facility] UNK - Ambulatory Encounter Lisbet Geraldo [facility] Allergic rhinitisUrinary tract infectionViral URI - Ambulatory Encounter Lisbet Geraldo Chow LinkLogdenae [facility] UNK - Ambulatory Encounter Lisbet Geraldo Diego [facility] UNK - Ambulatory Encounter Lisbet Geraldo Chow [facility] UNK - Ambulatory Encounter Lisbet Geraldo Combs [facility] Upper respiratory infection - Ambulatory Encounter Fax Status [facility] UNK - Ambulatory Encounter Fax Status [facility] UNK - Ambulatory Encounter [facility] - Ambulatory Encounter Fax Status [facility] UNK - Ambulatory Encounter Fax Status [facility] UNK - Ambulatory Encounter Fax Status [facility] UNK - Ambulatory Encounter Lisbet Geraldo Chow [facility] UNK - Ambulatory Encounter Lisbet Geraldo Chow Clive Farmer Ginette Pool [facility] UNK - Ambulatory Encounter Lisbet Geraldo Chow [facility] UNK - Ambulatory Encounter Lisbet Geraldo Chow [facility] UNK - Ambulatory Encounter Lisbet Geraldo Chow Vick Latif [facility] UNK - Ambulatory Encounter Lisbet Geraldo Chow [facility] UNK - Ambulatory Encounter Libset Geraldo Chow [facility] UNK - Ambulatory Encounter Lisbet Geraldo Chow [facility] UNK - Ambulatory Encounter Lisbet Geraldo Chow [facility] UNK - Ambulatory Encounter Lisbet Geraldo Chow [facility] UNK - Ambulatory Encounter Lisbet Geraldo Chow Vick Turner Ginette Pool [facility] Cerumen impaction, bilateralNeck pain - Ambulatory Encounter [facility] - [facility]ulatory Encounter Lisbet Chow [facility] UNK - Ambulatory Encounter Lisbet Chow [facility] UNK - Ambulatory Encounter Lisbet Chow [facility] UNK - Ambulatory Encounter Lisbet Samuel Darian Marcelaadeola Latif [facility] Pharyngitis, acute - Ambulatory Encounter Fax Status [facility] UNK - Ambulatory Encounter Fax Status [facility] UNK - Ambulatory Encounter Fax Status [facility] UNK - Ambulatory Encounter Lisbet Chow Clive Broderick Michael Jeffries [facility] Pelvic mass - Ambulatory Encounter Fax Status [facility] UNK - Ambulatory Encounter Fax Status [facility] UNK - Ambulatory Encounter Fax Status [facility] UNK - Ambulatory Encounter Lisbet Chow [facility] UNK - Ambulatory Encounter Lisbet Chow [facility] UNK - Ambulatory Encounter Lisbet Chow [facility] UNK - Ambulatory Encounter Fax Status [facility] UNK - Ambulatory Encounter Fax Status [facility] UNK - Ambulatory Encounter [facility] - Ambulatory Encounter Lizzie Farmer Lisbet Pittmanz [facility] Contact Center UNK - Ambulatory Encounter Scot Ladd [facility] UNK - Ambulatory Encounter Scot Ladd [facility] UNK - Ambulatory Encounter Lisbet Geraldo Chow [facility] UNK - Ambulatory Encounter Lisbet Geraldo Chow oRslyn Jacobs [facility] Lower back pain - Ambulatory Encounter [place] [facility] - Ambulatory Encounter [place] Tomas [facility] UNK - Ambulatory Encounter Carolina Tomas [facility] UNK - Ambulatory Encounter Carolina Tomas [facility] UNK - Ambulatory Encounter Carolina Tomas [facility] UNK - Ambulatory Encounter [place] Tomas [facility] UNK - Ambulatory Encounter Lisbet Chow [facility] UNK - Ambulatory Encounter Lisbet Geraldo Frausto Geraldo [facility] UNK - Ambulatory Encounter Lisbet Geraldo Chow [facility] UNK - Ambulatory Encounter Lisbet Geraldo Chow Meliza Jacobs [facility] Acute bronchitisLeg pain, right - Ambulatory Encounter Carolina Thom [facility] UNK - Ambulatory Encounter Carolina Thom [facility] UNK - Ambulatory Encounter [place] [facility] UNK - Ambulatory Encounter roel Johnny [facility] UNK - Ambulatory Encounter Vick Rodrigueznez [facility] UNK - Ambulatory Encounter Lisbet Geraldo Chow [facility] UNK - Ambulatory Encounter Lisbet Geraldo Chow [facility] UNK - Ambulatory Encounter Lisbet Chow [facility] UNK - Ambulatory Encounter Lisbet Walters [facility] UTI (urinary tract infection) - Ambulatory Encounter Lisbet Chow [facility] UNK - Ambulatory Encounter Lisbet Geraldo Chow [facility] UNK - Ambulatory Encounter Scot Martinezillo [facility] UNK - Ambulatory Encounter Scot Martinezillo [facility] UNK - Ambulatory Encounter Lisbet Geraldo Chow [facility] UNK - Ambulatory Encounter Lisbet Geraldo Navarro [facility] Annual examStd screeningScreening for lipid disorderScreening for diabetes mellitus - Ambulatory Encounter Rakan Hampton [facility] UNK - Ambulatory Encounter Rakan Hampton [facility] UNK - Ambulatory Encounter Ezequiel Hampton [facility] ObesityBMI 32.0-32.9Arthritis of spine - Ambulatory Encounter Nahed Dalton [facility] UNK - Ambulatory Encounter Nahed Dalton [facility] UNK - Ambulatory Encounter Elaina Alejandro [facility] UNK - Ambulatory Encounter Dixie Ray [facility] UNK - Ambulatory Encounter Rakan Hampton [facility] UNK - Ambulatory Encounter Lisbet Chow [facility] UNK - Ambulatory Encounter Elaina Lorenzanaome Lisbet Jacobs [facility] Lower back painScoliosisHypertension - Ambulatory Encounter Nahed Dalton [facility] UNK - Ambulatory Encounter Nahed Dalton [facility] UNK - Ambulatory Encounter Ezequiel Caldwell [facility] UNK VITAL SIGNS Date Observation Value [...] weight in kilograms E&M 87 kg Lizzie Gonzalezz " temperature site oral Lizzie Farmer " method used to obtain blood pressure automatic Lizzie Lorenzorez " Blood Pressure Position 01 sitting Lizzie [...] Oliveros oxygen saturation, oximetry 98 % Maria Luisa Cantrell " blood pressure, diastolic 82 mm[Hg] Maria Luisa Cantrell " blood pressure, systolic 120 mm[Hg] Maria Luisa Cantrell " respiratory rate E&M 18 /min Maria Luisa Óscar " pulse rate E&M 68 /min Maria Luisa Óscar " temperature E&M 98.1 [degF] Maria Lusia Cantrell " weight E&M 189.40 lbs. Maria Luisa Cantrell " weight in kilograms E&M 86.09 kg Maria Luisa Óscar " method used to obtain blood pressure automatic Maria Luisa Cantrell " Blood Pressure Position 01 sitting Amria Luisasunita Cantrell " blood pressure, site #1 left arm Maria Luisa Cantrell " temperature site oral Maria Luisa Cantrell " height E&M 62 [in_i] Maria Luisa Cantrell " height in centimeters E&M 157.48 cm Maria Luisa Cantrell temperature site oral Lizzie Farmer " [...] weight in kilograms E&M 88.91 kg Dixie Dunaway " height E&M 62 [in_i] Dixie Dunaway " height in centimeters E&M 157.48 cm Dixie Dunaway oxygen saturation, oximetry 98 % Maria Luisa Harmonales " blood pressure, diastolic 77 mm[Hg] Maria Luisasunita Cantrell " blood pressure, systolic 122 mm[Hg] Maria Luisa Cantrell " respiratory rate E&M 21 /min Maria Luisa Cantrell " pulse rate E&M 90 /min Maria Luisa Cantrell " temperature in centigrade E&M 2 Delma Maria Luisa Cantrell " temperature E&M 98 [degF] Maria Luisasunita Cantrell " weight E&M 198.25 lbs. Maria [...] " oxygen saturation, oximetry 98 % Lizzie Darian " blood pressure, diastolic 82 mm[Hg] Lizzie [...] height in centimeters E&M 157.48 cm Lizzie Darian oxygen saturation, oximetry 97 % Marcela Latif [...] " height in centimeters E&M 157.48 cm [facility] oxygen saturation, oximetry 96 % Susana Wright " blood pressure, diastolic 80 mm[Hg] Ussana Wright " blood pressure, systolic 121 mm[Hg] [...] Walters " weight E&M 177.20 lbs. Ellen Walters " weight in kilograms E&M 80.55 kg Ellen Walters " height E&M 62 [in_i] Ellen Walters " height in centimeters E&M 157.48 cm Ellen Walters oxygen saturation, oximetry 98 % Deya Navarro " method used to obtain blood pressure automatic Deya Navarro " Blood Pressure Position 01 sitting Deya Navarro " blood pressure, site #1 right arm Deya Navarro " blood pressure, diastolic 80 mm[Hg] Deya Navarro " blood pressure, systolic 114 mm[Hg] Deyasarah Navarro " respiratory rate E&M 20 /min Deyasarah Ramirezvez " pulse rate E&M 80 /min Deya Navarro " temperature site tympanic Deyasarah Navarro " temperature E&M 97.8 [degF] Deyasa Navarro " weight E&M 177.20 lbs. Deyasarah Navarro " weight in kilograms E&M 80.55 kg Deyasarah Navarro " height E&M 62 [in_i] Deyasarah Navarro " height in centimeters E&M 157.48 [...] End Date Service - CT Scan - Mammogram - Diagnostic - X-RAY - OB / Organizational Development Consultant - External - X-RAY RESULTS Date Observation [...] Farmer " influenza B virus antigen negative Lizziejena Farmer " influenza virus A antigen negative Lizziejena Farmer alanine aminotransferase (SGPT), serum 24 1/L [...] Status Fluzone Quadrivalent IM PF 0.[address] [facility] [id number] San[employer]i Pasteur 0.5 mL [id number] completed HISTORY OF MEDICATION USE Medication Instructions Dates Provider Comments HYDROXYZINE HCL 25 MG ORAL TABLET 1 by mouth every 6 hours as needed Lisbet Chow DELSYM 30 MG/5ML ORAL SUSPENSION EXTENDED RELEASE 5 ml Every 6 hrs As Needed cough Lisbet Chow RANITIDINE HCL 150 MG ORAL TABLET 1 by mouth twice a day Lisbet Chow ACETIC ACID 2 % OTIC SOLUTION 3 DROPS per ear Every 6-8 hrs for 5 days Lisbet Lorenzanaome CLARITIN 10 MG ORAL TABLET 1 by mouth every day Lisbet Chow TESSALON PERLES 100 MG ORAL CAPSULE 1 by mouth 3 times a day as needed for cough Lisbet Chow COLD MULTI-SYMPTOM DAYTIME 10-5-325 MG ORAL TABLET use as directed Lisbet Chow ZYRTEC ALLERGY 10 MG ORAL TABLET 1 by mouth every day Lisbet Lorenzanaome FLONASE ALLERGY RELIEF 50 MCG/ACT NASAL SUSPENSION 2 sprays each nostril every day Lisbet Chow AUGMENTIN 875-125 MG ORAL TABLET 1 by [...] Date Observation Value Provider time of call 05/19/2019 10:12 AM Marie Herrera time of call 05/16/2019 12:04 PM Bertha Cintron time of call 05/16/2019 8:35 AM Chely Torrez drug use, illicit Never Lizzie Farmer " alcohol use Never Lizzie Farmer " social history reviewed E&M reviewed today Lizzie Farmer " sexual orientation Heterosexual Lizzie Farmer " assessment of health literacy ([facility] 2014 Standards, 3C10) Adequate Lizzie Farmer [...] " drug use, illicit Never Carol S Cnode " alcohol use Never Carol S Conde " social history reviewed E&M reviewed today Carol S Conde " sexual orientation Heterosexual Carlo S Conde " assessment of health literacy ([facility] 2014 Standards, 3C10) Adequate Carol S Conde " passive cigarette smoke exposure No Carol S Conde " smoking status never smoker Carol S Conde drug use, illicit Never Ginette Pool " alcohol use Never Ginette Pool " social history reviewed E&M reviewed today Ginette Pool " assessment of health literacy ([facility] 2014 Standards, 3C10) Adequate Ginette [...] " assessment of health literacy ([facility] 2014 Standards, 3C10) Adequate Maria Luisa Cantrell " sexual orientation Heterosexual Maria Luisa Cantrell " drug use, illicit Never Maria Luisa Cantrell " alcohol use Never Maria Luisasunita Cantrell " smoking status never smoker Maria Luisa Cantrell " social history reviewed E&M reviewed today Maria Luisa Cantrell drug use, illicit Never Lizzie Farmer " alcohol use Never Lizzie Farmer " social history reviewed E&M reviewed today Lizzie Farmer " sexual orientation Heterosexual Lizzie Farmer " assessment of health literacy ([facility] 2014 Standards, 3C10) Adequate Lizzie [...] " assessment of health literacy ([facility] 2014 Standards, 3C10) Adequate Jenise Oliveros " passive cigarette smoke exposure No Jenise Oliverso " smoking status never smoker Jenise Oliveros " Exercise Program Referral T Jenise Oliveros " Weight Management Counseling Provided T Jenise Oliveros " Nutrition intervention T Jenise Oliveros drug use, illicit Never Dixie Gume " alcohol use Never Dixie Gume " social history reviewed E&M reviewed today Dixie Dunaway " sexual orientation Heterosexual Dixie Gume " assessment of health literacy ([facility] 2014 Standards, 3C10) Adequate Dixie Gume " passive cigarette smoke exposure No Dixie Gume " smoking status never smoker Dixie Gume " Exercise Program Referral T Dixie Gume " Weight Management Counseling Provided T Dixie Gume " Nutrition intervention T Dixie Gume Exercise Program Referral T Lisbet Geraldo " Weight Management Counseling Provided T Lisbet Geraldo " Nutrition intervention T Lisbet Geraldo " drug use, illicit Never Lizzie Farmer " alcohol use Never Lizzie Farmer " social history reviewed E&M reviewed today Lizzie Farmer " sexual orientation Heterosexual Lizzie Farmer " assessment of health literacy ([facility] 2014 Standards, 3C10) Adequate Lizzie Farmer " passive cigarette smoke exposure No Lizzie Farmer " smoking status never smoker Lizzie Farmer assessment of health literacy ([facility] 2014 Standards, 3C10) Adequate Maria Luisa Cantrell " sexual orientation Heterosexual Maria Luisasunita Cantrell " passive cigarette smoke [...] " assessment of health literacy ([facility] 2014 Standards, 3C10) Adequate Meliza [...] " assessment of health literacy ([facility] 2014 Standards, 3C10) Adequate Lizzie Farmer " passive cigarette smoke exposure No Lizzie Farmer " smoking status never smoker Lizzie Farmer " sexual orientation Heterosexual Marcela Latif " assessment of health literacy ([facility] 2014 Standards, 3C10) Adequate Marcela [...] " assessment of health literacy ([facility] 2014 Standards, 3C10) Adequate Ginette [...] " assessment of health literacy ([facility] 2014 Standards, 3C10) Adequate Marcela Latif " is there any chance that you could be ? No Marcela Latif " passive cigarette smoke exposure No Marcela Latif " smoking status never smoker Marcela Latif time of call 09/16/2017 3:15 PM Mina Conde Exercise Program Referral T Lisbet Geraldo " Weight Management Counseling Provided T Lisbet Geraldo " Nutrition intervention T Lisebt Geraldo " drug use, illicit Never Ginette Pool " alcohol use Never Ginette Pool " social history reviewed E&M reviewed today Ginette Pool " assessment of health literacy ([facility] 2014 Standards, 3C10) Adequate Ginette Pool " passive cigarette smoke exposure No Ginette Pool " smoking status never smoker Ginette Pool drug use, illicit Never Susana Wright " alcohol use Never Ssuana Wright " social history reviewed E&M reviewed today Susana Wright " sexual orientation Heterosexual Susana Wright " passive cigarette smoke exposure No Susana Wright " smoking status never smoker Susana Wright " assessment of health literacy ([facility] 2014 Standards, 3C10) Adequate Susana Wright social history reviewed E&M reviewed today Ellen Walters " passive cigarette smoke exposure No Ellen Walters " smoking status never smoker Ellen Walters " assessment of health literacy ([facility] 2014 Standards, 3C10) Adequate Ellen Walters " Exercise Program Referral T Ellen Walters " Weight Management Counseling Provided T Ellne Walters " Nutrition intervention T Ellen Walters Exercise Program Referral T Lisbet Geraldo " Weight Management Counseling Provided T Lisbet Geraldo " Nutrition intervention T Lisbet Geraldo social history reviewed E&M reviewed today Deya Navarro " sexual orientation Heterosexual Deya Navarro " passive cigarette smoke exposure No Deya Navarro " smoking status never smoker Deya Navarro " assessment of health literacy ([facility] 2014 Standards, 3C10) Adequate Deya Navarro " sexual orientation Heterosexual Dixie Ray " passive cigarette smoke exposure No Dixie Ray " smoking status never smoker Dixie Ray " assessment of health literacy ([facility] 2014 Standards, 3C10) Adequate Dixie Schillingz " Exercise Program Referral T Dixie Ray " Weight Management Counseling Provided T Dixie Schillingz " Nutrition intervention T Dixie Ray " social history reviewed E&M reviewed today Dixie Ray sex at Female Isabel Moe " 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 No Isabel Moe " passive cigarette smoke exposure No Isabel Moe " smoking status never smoker Isabel Moe " assessment of health literacy ([facility] 2014 Standards, 3C10) Adequate Isabel [...] oriented to time, place, and person Lisbet [facility] " assessment of judgment and insight [...] Disorder Questionnaire - Question 1 0 Marcela Salomon assessment of judgment and insight E&M intact [...] of judgment and insight E&M intact Susanth Sivdewayne " mental status examination: orientation E&M oriented [...] E&M no depression, anxiety, or agitation Lisbet Chow " Generalized Anxiety Disorder Questionnaire - Question [...] - - - - - - - - Est Patient Detailed - 60065 Ofc Vst, Est Level III Est Patient Exp Problem - 78992 Vaccines Ordered - Print Consent/Declination Forms Urinalysis - Dip only - In House Est Patient Detailed - 57294 Est Patient Exp Problem - 09531 Ofc Vst, Est Level III Est Patient Exp Problem - 46957 Est Patient Detailed - 12105 Ofc Vst, Est Level III Ofc Vst, Est Level III Rapid Strep - In House Rapid Flu - In House Est Patient Detailed - 79573 Est Patient Detailed - 07350 IM or SQ Injection Injection, ketorolac tromethamine (toradol), per 15 mg IM or SQ Injection Injection, dexamethasone sodium phosphate, 1mg Est Patient Detailed - 17411 IM or SQ Injection Injection, ketorolac tromethamine (toradol), per 15 mg Est Patient Detailed - 27912 Ear Irrigation Est Patient Detailed - 96375 IM or SQ Injection Injection, dexamethasone sodium phosphate, 1mg Urinalysis - Dip only - In House Rapid Strep - In House Est Patient Exp Problem - 83084 Est Patient Detailed - 13840 Est Patient Exp Problem - 22500 Est Patient Well Exam (18 - 39 Yrs) - 84921 Est Patient Exp Problem - 41168 New Patient Exp Problem - 11736 HISTORY OF PROCEDURES Procedure Date Procedure Name Provider Procedure Notes Status Vaccines Ordered - Print Consent/Declination Forms Lisbet Geraldo completed Urinalysis - Dip only - In House Lisbet Geraldo completed Rapid Strep - In House Lisbet Geraldo completed Rapid Flu - In House Lisbet Geraldo completed IM or SQ Injection Lisbet Geraldo completed Injection, ketorolac tromethamine (toradol), per 15 mg Lisbet Geraldo ND: [id number]. completed IM or SQ Injection Lisbet Geraldo completed Injection, dexamethasone sodium phosphate, 1mg Lisbet Geraldo NDC: [id number]. completed IM or SQ Injection Lisbet Geraldo completed Injection, ketorolac tromethamine (toradol), per 15 mg Lisbet Geraldo NDC: [id number]. completed Ear Irrigation Lisbet Geraldo completed IM or SQ Injection Lisbet Geraldo 4mg IM Dexamethasone completed Injection, dexamethasone sodium phosphate, 1mg Lisbet Geraldo NDC: [id number]. completed Urinalysis - Dip only - In House Lisbet Geraldo completed Rapid Strep - In House Lisbet Geraldo completed GOALS No Information Available HEALTH CONCERNS No Information Available
--- OUTSIDE RECORDS SUMMARY | 2019-05-24 13:32 | XMS REPORT ---
Author Author Admin, [place] Organization Unknown Address Unknown Phone Unavailable PROBLEMS [...] Provider Location Encounter Diagnosis - Ambulatory Encounter Fax Status [facility] UNK - Ambulatory Encounter Fax Status [facility] UNK - Ambulatory Encounter Fax Status [facility] UNK - Ambulatory Encounter Lisbet Geraldo Lisbet Geraldo Nella Ocampoya Abdulaziz [facility] UNK - Ambulatory Encounter Elizabeth Garcia Torrez [facility] UNK - Ambulatory Encounter Lisbet Geraldo Lisbet Geraldo Deena Wade [facility] Hyperprolactinemia - Ambulatory Encounter Lisbet Geraldo Lisbet Geraldo [facility] UNK - Ambulatory Encounter Lisbet Geraldo Lisbet Geraldo [facility] UNK - Ambulatory Encounter Lisbet Geraldo Lisbet Geraldo [facility] UNK - Ambulatory Encounter Lisbet Geraldo Lisbet Geraldo [facility] UNK - Ambulatory Encounter Lisbet Geraldo Lisbet Geraldo [facility] UNK - Ambulatory Encounter Lisbet Geraldo Lisbet Geraldo Carolina Tomas [facility] UNK - Ambulatory Encounter Lisbet Geraldo Lisbet Geraldo [facility] UNK - Ambulatory Encounter Lisbet Geraldo Lisbet Geraldo Lizzie Combs [facility] Conscious sedation medical clearance examHyperprolactinemiaGalactorrheaScreening exam for breast cancer - Ambulatory Encounter Lisbet Geraldo Chow [facility] UNK - Ambulatory Encounter Lisbet Geraldo Frausto Geraldo [facility] UNK - Ambulatory Encounter Lisbet Geraldo Chow [facility] UNK - Ambulatory Encounter Lisbet Geraldo Chow [facility] UNK - Ambulatory Encounter Lisbet Geraldo Chow [facility] UNK - Ambulatory Encounter Lisbet Geraldo Chow [facility] UNK - Ambulatory Encounter Lisbet Geraldo Lisbet Geraldo [facility] UNK - Ambulatory Encounter Lisbet Geraldo Lisbet Geraldo Carol Conde [facility] Viral URI - Ambulatory Encounter [...] Ambulatory Encounter Lisbet Geraldo Chow [facility] UNK - Ambulatory Encounter Lisbet Geraldo Lisbet Geraldo [facility] UNK - Ambulatory Encounter Lisbet Geraldo Lisbet Geraldo [facility] UNK - Ambulatory Encounter Fax Status [facility] UNK - Ambulatory Encounter [facility] - [facility] En[facility] - [facility]ulatory Encounter Lisbet Geraldo Chow [facility] UNK - Ambulatory Encounter Lisbet Geraldo Lisbet Geraldo Elizabeth Newman [facility] Abdominal pain - Ambulatory Encounter Lisbet Geraldo Lisbet Geraldo [facility] UNK - Ambulatory Encounter Lisbet Geraldo Lisbet Lorenzanaome Jenise Conde [facility] UNK - Ambulatory Encounter Fax Status [facility] UNK - Ambulatory Encounter Lisbet Geraldo Lisbet Geraldo [facility] - Ambulatory Encounter Lisbet Geraldo Lisbet Geraldo [facility] UNK - Ambulatory Encounter Lisbet Geraldo Lisbet Geraldo Maria Luisasunita Cantrell [facility] UNK - Ambulatory Encounter Lisbet Geraldo Lisbet Geraldo [facility] UNK - Ambulatory Encounter Lisbet Geraldo Lisbet Geraldo Lizzie Farmer [facility] Cerumen impaction, leftViral URI - Ambulatory Encounter Lisbet Geraldo [facility] - Ambulatory Encounter Lisbet Geraldo Lisbet [facility]eral[facility] UNK - Ambulatory Encounter Lisbet Geraldo Lisbet Geraldo [facility] UNK - Ambulatory Encounter Lisbet Geraldo Lisbet Lorenzanaome Roslynclaudy Oliveros [facility] AnemiaCough - Ambulatory Encounter Lisbet Geraldo Lisbet Geraldo [facility] UNK - Ambulatory Encounter Yolanda Morgan [facility] UNK - Ambulatory Encounter Yolanda Morgan [facility] UNK - Ambulatory Encounter Lisbet Geraldo Lisbet Geraldo [facility] UNK - Ambulatory Encounter Lisbet Geraldo Lisbet Lorenzanaaidee Dunaway Yolanda Morgan [facility] Chest wall pain - Ambulatory Encounter Lisbet Geraldo Lisbet Geraldo [facility] UNK - Ambulatory Encounter Lisbet Geraldo Lisbet Geraldo [facility] UNK - Ambulatory Encounter Lisbet Geraldo Lisbet Glass [facility] UNK - Ambulatory Encounter Lisbet Geraldo Lisbet Geraldo [facility] UNK - Ambulatory Encounter Lisbet Geraldo Lisbet Geraldo [facility] UNK - Ambulatory Encounter Lisbet Geraldo Lisbet Geraldo Maria Luisa [facility] Allergic rhinitisUrinary tract infectionViral URI - Ambulatory Encounter Lisbet Geraldo Lisbet Lorenzanaome [facility] UNK - Ambulatory Encounter Lisbet Geraldo Lisbet Lorenzanaome Jenna Diego [facility] UNK - Ambulatory Encounter Lisbet Geraldo Lisbet Geraldo [facility] UNK - Ambulatory Encounter Lisbet Geraldo Lisbet Combs [facility] Upper respiratory infection - Ambulatory Encounter Fax Status [facility] UNK - Ambulatory Encounter Fax Status [facility] UN[facility] - Ambulatory Encounter Fax Status [facility] UNK - Ambulatory Encounter Fax Status [facility] UNK - Ambulatory Encounter Fax Status [facility] UNK - Ambulatory Encounter Fax Status [facility] UNK - Ambulatory Encounter Lisbet Geraldo Chow [facility] UNK - Ambulatory Encounter Lisbet Geraldo Chow Clive Almanzaa Trent [facility] UNK - Ambulatory Encounter Lisbet Geraldo Chow [facility] UNK - Ambulatory Encounter Lisbet Geraldo Chow [facility] UNK - Ambulatory Encounter Lisbet Geraldo Chow Vick Latif [facility] UNK - Ambulatory Encounter Lisbet Geraldo Chow [facility] UNK - Ambulatory Encounter Lisbet Geraldo Chow [facility] UNK - Ambulatory Encounter Lisbet Geraldo Chow [facility] UNK - Ambulatory Encounter Lisbet Geraldo Chow [facility] UNK - Ambulatory Encounter Lisbet Geraldo Chow [facility] UNK - Ambulatory Encounter Lisbet Geraldo Chow Vick Turner Ginette Trent [facility] Cerumen impaction, bilateralNeck pain - Ambulatory Encounter Marquise Saucedo [employer] UNK - Ambulatory Encounter Lisbet Chow [facility] UNK - Ambulatory Encounter Lisbet Chow [facility] UNK - Ambulatory Encounter Lisbet Chow [facility] UNK - Ambulatory Encounter Lisbet Chow Lizziejena Latif [facility] Pharyngitis, acute - Ambulatory Encounter Fax Status [facility] UNK - Ambulatory Encounter Fax Status [facility] UNK - Ambulatory Encounter Fax Status [facility] UNK - Ambulatory Encounter Lisbet Chow Clive Jeffries [facility] Pelvic mass - Ambulatory Encounter Fax Status [facility] UNK - Ambulatory Encounter Fax Status [facility] UNK - Ambulatory Encounter Fax Status [facility] UNK - Ambulatory Encounter Lisbet Chow [facility] UNK - Ambulatory Encounter Lisbet Chow [employer] UNK - Ambulatory Encounter Lisbet Chow [facility] UNK - Ambulatory Encounter Fax Status [facility] UNK - Ambulatory Encounter Fax Status [facility] UNK - Ambulatory Encounter Fax Status [facility] UNK - Ambulatory Encounter Lizzie Farmer Lisbet Conde [facility] UNK - Ambulatory Encounter Scot Ladd [facility] UNK - Ambulatory Encounter Scot Ladd [facility] UNK - Ambulatory Encounter Lisbet Chow [facility] UNK - Ambulatory Encounter Lisbet Chow Roslyn Jacobs [facility] Lower back pain - Ambulatory Encounter Carolina Tomas [facility] UNK - Ambulatory Encounter Carolina Tomas [facility] - Ambulatory Encounter Carolina Tomas Med[facility]herence [facility] UNK - Ambulatory Encounter Carolina Tomas [facility] UNK - Ambulatory Encounter Carolina Tomas Med[facility]herence [facility] UNK - Ambulatory Encounter Carolina Tomas [facility] UN[facility] - Ambulatory Encounter Lisbet Geraldo Chow [facility] UNK - Ambulatory Encounter Lisbet Frausto Geraldo [facility] UNK - Ambulatory Encounter Lisbet Geraldo Frausto Geraldo [facility] UNK - Ambulatory Encounter Lisbet Geraldo Chow Meliza Jacobs [facility] Acute bronchitisLeg pain, right - Ambulatory Encounter Carolina Tomas [facility]herence [facility] UNK - Ambulatory Encounter Carolina Tomas [facility] UNK - Ambulatory Encounter Carolina Tomas [facility] UNK - Ambulatory Encounter Vick Turner [facility] UNK - Ambulatory Encounter Vick Turner [facility] UNK - Ambulatory Encounter Lisbet Geraldo Lisbet Geraldo [facility] UNK - Ambulatory Encounter Lisbet Geraldo Lisbet Geraldo [facility] UNK - Ambulatory Encounter Lisbet Geraldo Lisbet Geraldo [facility] UNK - Ambulatory Encounter Lisbet Geraldo Lorenzanaome Ellen Walters [facility] UTI (urinary tract infection) - Ambulatory Encounter Lisbet Geraldo Lisbet Geraldo [facility] UNK - Ambulatory Encounter Lisbet Geraldo Lisbet Geraldo [facility] UNK - Ambulatory Encounter Scot Ladd [facility] UNK - Ambulatory Encounter Scot Ladd [facility] UNK - Ambulatory Encounter Lisbet Geraldo Lisbet Geraldo [facility] UNK - Ambulatory Encounter Lisbet Geraldo Lisbet Lorenzanaome Jenna Navarro [facility] Annual examStd screeningScreening for lipid disorderScreening for diabetes mellitus - Ambulatory Encounter Rakan Hampton [facility] UNK - Ambulatory Encounter Rakan Hampton [facility] UNK - Ambulatory Encounter Ezequiel Hampton [facility] ObesityBMI 32.0-32.9Arthritis of spine - Ambulatory Encounter Nahed Dalton [facility] UNK - Ambulatory Encounter Nahed Dalton [facility] UNK - Ambulatory Encounter Elaina Alejandro [facility] UNK - Ambulatory Encounter Dixie Ray [facility] UNK - Ambulatory Encounter Rakan Hampton [facility] UNK - Ambulatory Encounter Lisbet Chow [facility] UNK - Ambulatory Encounter Elaina Lorenzanaome Lisbet Bella [facility] Lower back painScoliosisHypertension - Ambulatory Encounter Nahed Dalton [facility] UNK - Ambulatory Encounter Nahed Dalton [facility] UNK - Ambulatory Encounter Ezequiel Caldwell [facility] UNK VITAL SIGNS Date Observation Value Provider [...] " Blood Pressure Position 01 sitting Lizzie Lorenzorez " blood pressure, site #1 left arm Lizzie Lorenzorez " height E&M 62 [in_i] Lizzie Lorenzorez " height in centimeters E&M 157.48 cm Lizzie Lorenzorez oxygen saturation, oximetry 97 % Carol S [...] Jenise Oliveros " temperature E&M 98.4 [degF] Jensie Oliveros " weight E&M 190.25 lbs. Jenise [...] Cantrell " blood pressure, diastolic 82 mm[Hg] Marai Luisa Cantrell " blood pressure, systolic 120 mm[Hg] Maria Luisa Cantrell " respiratory rate E&M 18 /min Maria Luisa Óscar " pulse rate E&M 68 /min Maria Luisa Óscar " temperature E&M 98.1 [degF] Maria Luisasunita Cantrell " weight E&M 189.40 lbs. Maria Luisa Cantrell " weight in kilograms E&M 86.09 kg Maria Luisa Cantrell " method used to obtain blood pressure automatic Maria Luisa Cantrell " Blood Pressure Position 01 sitting Maria Luisa Cantrell " blood pressure, site [...] blood pressure, systolic 122 mm[Hg] Maria Luisa Harmonales " respiratory rate E&M 21 /min Maria Luisasunita Cantrell " pulse rate E&M 90 /min Maria Luisasunita Cantrell " temperature in centigrade E&M 2 Delma Maria Luisasunita Cantrell " temperature E&M 98 [degF] Maria Luisa Cantrell " weight E&M 198.25 lbs. Maria Luisa Cantrell " weight in kilograms E&M 90.11 kg Maria Luisasunita Cantrell " blood pressure, site #1 left arm Lizzie Farmer " Blood Pressure Position 01 sitting Lizzie Farmer " method used to obtain blood pressure automatic Lizzie Farmer " temperature site oral Lizzie Farmer " height E&M 62 [in_i] Lizzie Farmer " height in centimeters E&M 157.48 cm Lizzie Farmer height E&M 62 [in_i] Maria Luisasunita Cantrell " height in centimeters E&M 157.48 [...] " blood pressure, diastolic 82 mm[Hg] Lizzie Lorenzorez " blood pressure, systolic 137 mm[Hg] Lizzie Lorenzorez " respiratory rate E&M 15 /min Lizzie Lorenzorez " pulse rate E&M 87 /min Lizzie Lorenzorez " temperature E&M 98.3 [degF] Lizzie Lorenzorez " weight E&M 190.20 lbs. Lizzie Farmer " weight in kilograms E&M 86.45 kg Lizzie Farmer " height E&M 62 [in_i] Lizzie Farmer " height in centimeters E&M 157.48 cm Lizzie Lorenzorez oxygen saturation, oximetry 97 % Marcela Latif [...] /min Deya Navarro " temperature site tympanic Deyasa Navarro " temperature E&M 97.8 [degF] Deya Navarro " weight E&M 177.20 lbs. Deya Navarro " weight in kilograms E&M 80.55 kg Deyasa Navarro " height E&M 62 [in_i] Deyasarah Navarro " height in centimeters E&M 157.48 cm Deya Navarro oxygen saturation, oximetry 97 % Dixie Ray " method used to obtain blood pressure automatic Dixie Ray " Blood Pressure Position 01 sitting Dixie Ray " blood pressure, site #1 left arm Dixie Ray " blood pressure, diastolic 79 mm[Hg] Dixie Lemavez " blood pressure, systolic 125 mm[Hg] Dixie [...] height in centimeters E&M 157.48 cm Dixie Lemavez height E&M 62 [in_i] Lucianoearlinecriselda Abhi " height in centimeters E&M 157.48 cm Isabel Moe " method used to obtain blood pressure automatic Isabel Moe " Blood Pressure Position 01 sitting Isabel Moe " blood pressure, site #1 right arm Isabel Moe " blood pressure, diastolic 80 mm[Hg] Isaebl Moe " blood pressure, systolic 137 mm[Hg] [...] - Diagnostic - X-RAY - OB / Lead Ios Developer - External - X-RAY RESULTS Date Observation [...] in urine (hemoglobin) by dipstick 1+ Lizzie Famrer " protein, urine, semiquantitative (dipstick) negative Lizzie [...] Status Fluzone Quadrivalent IM PF 0.[address] [facility] [address]-70 Sanofi Pasteur 0.5 mL [id number] completed HISTORY OF MEDICATION USE Medication Instructions [...] Observation Value Provider time of call 05/16/2019 12:04 PM Bertha Cintron time of call 05/16/2019 8:35 AM Chely Torrez drug use, illicit Never Lizzie Farmer " alcohol use Never Lizzie Farmer " social history reviewed E&M reviewed today Lizzie Farmer " sexual orientation Heterosexual Lizzie Farmer " assessment of health literacy ([facility] 2014 Standards, 3C10) Adequate Lizzie Farmer " passive cigarette smoke exposure No Lizzie Farmer " smoking status never smoker Lizzie Farmer " Exercise Program Referral T iLzzie Farmer " Weight Management Counseling Provided T [...] " assessment of health literacy ([facility] 2014 Standards, 3C10) Adequate Carol S Conde " passive cigarette smoke exposure No Carol S Conde " smoking status never smoker Carol S Conde drug use, illicit Never Ginette Pool " alcohol use Never Ginette Pool " social history reviewed E&M reviewed today Ginette Pool " assessment of health literacy ([facility] 2014 Standards, 3C10) Adequate Ginette Pool [...] " assessment of health literacy ([facility] 2014 Standards, 3C10) Adequate Maria Luisa Cantrell " sexual orientation Heterosexual Maria Luisasunita Cantrell " drug use, illicit [...] " assessment of health literacy ([facility] 2014 Standards, 3C10) Adequate Lizzie Farmer [...] " assessment of health literacy ([facility] 2014 Standards, 3C10) Adequate Jenise Oliveros [...] " assessment of health literacy ([facility] 2014 Standards, 3C10) Adequate Dixie Ugme " passive cigarette smoke exposure No Dixie [...] Lizzie Rankinierrez " sexual orientation Heterosexual Lizzie Farmer " assessment of health literacy ([facility] 2014 Standards, 3C10) Adequate Lizzie Farmer " passive cigarette smoke exposure No Lizzie Farmer " smoking status never smoker Lizzie Farmer assessment of health literacy ([facility] 2014 Standards, 3C10) Adequate Maria Luisa [...] Lisbet Geraldo " Nutrition intervention T Lisbet Lorenzanaome " drug use, illicit Never Meliza Combs " alcohol use Never Meliza Combs " social history reviewed E&M reviewed today Meliza Combs " sexual orientation Heterosexual Meliza Combs " assessment of health literacy ([facility] 2014 Standards, 3C10) Adequate Meliza Combs [...] " assessment of health literacy ([facility] 2014 Standards, 3C10) Adequate Lizzie Farmer " passive cigarette smoke exposure No Lizzie Farmer " smoking status never smoker Lizzie Farmer " sexual orientation Heterosexual Marcela Latif " assessment of health literacy ([facility] 2014 Standards, 3C10) Adequate Marcela Latif [...] " assessment of health literacy ([facility] 2014 Standards, 3C10) Adequate Ginette Pool [...] " assessment of health literacy ([facility] 2014 Standards, 3C10) Adequate Marcela Latif [...] " assessment of health literacy ([facility] 2014 Standards, 3C10) Adequate Ginette Pool [...] " assessment of health literacy ([facility] 2014 Standards, 3C10) Adequate Susana Wright social history reviewed E&M reviewed today Ellen Walters " passive cigarette smoke exposure No Ellen Walters " smoking status never smoker Ellen Walters " assessment of health literacy ([facility] 2014 Standards, 3C10) Adequate Ellen Walters [...] Deya Navarro " smoking status never smoker Deay Navarro " assessment of health literacy ([facility] 2014 Standards, 3C10) Adequate Deya Navarro " sexual orientation Heterosexual Dixie Ray " passive cigarette smoke exposure No Dixie Schillingz " smoking status never smoker Dixie Ray " assessment of health literacy ([facility] 2014 Standards, 3C10) Adequate Dixie Ray " Exercise Program Referral T Dixie Cory " Weight Management Counseling Provided T Dixie Ray " Nutrition intervention T Dixie Cory " social history reviewed E&M reviewed today [...] " assessment of health literacy ([facility] 2014 Standards, 3C10) Adequate Isabel Moe [...] Disorder Questionnaire - Question 2 0 Lizzie Faremr " Generalized Anxiety Disorder Questionnaire - Question [...] Anxiety Disorder Questionnaire - Question 2 0 Gniette Newman " Generalized Anxiety Disorder Questionnaire - [...] assessment of judgment and insight E&M intact [facility] " assessment of mood and affect E&M no depression, anxiety, or agitation Lisbet [facility] " Generalized Anxiety Disorder Questionnaire [...] E&M oriented to time, place, and person [facility] " assessment of judgment and insight E&M intact [facility] " assessment of mood and affect E&M no depression, anxiety, or agitation [facility] " Generalized Anxiety Disorder Questionnaire - Question 2 0 Meliza Combs " Generalized Anxiety Disorder Questionnaire - Question 1 0 Meliza Combs assessment of judgment and insight E&M intact Lisbet Geraldo " assessment of mood and affect E&M no depression, anxiety, or agitation Lisbet Geraldo assessment of judgment and insight E&M intact [facility] " assessment of mood and affect E&M [...] of judgment and insight E&M intact Susanth Javierdewayne " mental status examination: orientation E&M oriented [...] - - - Est Patient Detailed - 00132 Ofc Vst, Est Level III Est Patient Exp Problem - 03454 Vaccines Ordered - Print Consent/Declination Forms Urinalysis - Dip only - In House Est Patient Detailed - 20035 Est Patient Exp Problem - 24987 Ofc Vst, Est Level III Est Patient Exp Problem - 27162 Est Patient Detailed - 01866 Ofc Vst, Est Level III Ofc Vst, Est Level III Rapid Strep - In House Rapid Flu - In House Est Patient Detailed - 42536 Est Patient Detailed - 91153 IM or SQ Injection Injection, ketorolac tromethamine (toradol), per 15 mg IM or SQ Injection Injection, dexamethasone sodium phosphate, 1mg Est Patient Detailed - 79683 IM or SQ Injection Injection, ketorolac tromethamine (toradol), per 15 mg Est Patient Detailed - 93903 Ear Irrigation Est Patient Detailed - 04986 IM or SQ Injection Injection, dexamethasone sodium phosphate, 1mg Urinalysis - Dip only - In House Rapid Strep - In House Est Patient Exp Problem - 14263 Est Patient Detailed - 54469 Est Patient Exp Problem - 19144 Est Patient Well Exam (18 - 39 Yrs) - 40380 Est Patient Exp Problem - 96461 New Patient Exp Problem - 37103 HISTORY OF PROCEDURES Procedure Date Procedure Name Provider Procedure Notes Status Vaccines Ordered - Print Consent/Declination Forms Lisbet Geraldo completed Urinalysis - Dip only - In House Lisbet Geraldo completed Rapid Strep - In House Lisbet Geraldo completed Rapid Flu - In House Lisbet Geraldo completed IM or SQ Injection Lisbet Geraldo completed Injection, ketorolac tromethamine (toradol), per 15 mg Lisbet Geraldo NDC: [id number]. completed IM or SQ Injection Lisbet Geraldo completed Injection, dexamethasone sodium phosphate, 1mg Lisbet Geraldo NDC: [id number]. completed IM or SQ Injection Lisbet Geraldo completed Injection, ketorolac tromethamine (toradol), per 15 mg Lisbet Geraldo NDC: [id number]. completed Ear Irrigation Lisbet Geraldo completed IM or SQ Injection Lisbet Geraldo 4mg IM Dexamethasone completed Injection, dexamethasone sodium phosphate, 1mg Lisbet Geraldo NDC: [id number]. completed Urinalysis - Dip only - In House Lisbet Geraldo completed Rapid Strep - In House Lisbet Geraldo completed GOALS No Information Available HEALTH CONCERNS No Information Available
[2019-05-24 16:40] VITALS: BP 129/84
--- NOTE | 2019-05-25 | Operative Report ---
DATE OF PROCEDURE: 05/24/2019 SURGEON: Juan Francisco Watts DPM CADD DRAFTER: None. PREOPERATIVE DIAGNOSES: 1. Painful hammertoe, 5th toe, left foot. 2. Hypertrophic bone to the base of the proximal phalanx and the 5th toe, left foot. POSTOPERATIVE DIAGNOSES: 1. Painful hammertoe, 5th toe, left foot. 2. Hypertrophic bone to the base of the proximal phalanx and the 5th toe, left foot. PROCEDURES: 1. Hammertoe correction of the 5th toe, left foot. 2. Exostectomy, left 5th toe (partial excision of the medial base of the proximal phalanx of the left 5th toe). ANESTHESIA: General with a total of 20 mL of 1:1 mixture of 1% lidocaine plain and 0.5% Marcaine plain. PATHOLOGY: None. ESTIMATED BLOOD LOSS: None. COMPLICATIONS: None. GRAFTS: None. IMPLANTS: None. INDICATIONS FOR THE PROCEDURE: The patient is a pleasant 43-year-old female, who has a painful left 5th toe medially as well, which the patient can feel bone pressure and hypertrophy as well as a contracture to the left 5th toe. At this time, because of the deformity and the pain that the patient continued to experience through many years, after exhausting all conservative treatments including padding, ordering wider shoes and insoles, the patient continued to have pain to this area. Therefore, this warranted surgical intervention at this point. All the risks, complications of the surgery were explained to the patient including infection, pain, swelling, numbness, bleeding, delayed healing, recurrence, neuritis, stiffness of the toe, and possible need for the surgery. At this time, there were no guarantees implied or given. Therefore, the above stated procedure was performed. NARRATIVE OF PROCEDURE: Preoperatively, the patient was identified as Nilda Blue. The left foot was marked. Thirty minutes prior to surgery, the patient was given clindamycin 900 mg IV. She was then taken to the OR and placed on the OR table in supine position. After a successful general anesthetic, an appropriate time-out was performed with identification of the patient and the procedure. The left was then infiltrated at left 5th MPJ with a total of 20 mL of 1:1 mixture of 1% lidocaine and 0.5% Marcaine plain. The left ankle tourniquet was applied. The left foot was then prepped and draped in usual sterile manner. The mini C-arm was utilized was hypertrophied. Therefore, the left foot was elevated and Esmarch was utilized to exsanguinate the blood and tourniquet was now inflated to 250 mmHg. Attention was now directed to the left 5th metatarsophalangeal joint, in which the dorsal linear incision was made overlying the left 5th metatarsophalangeal joint extending down to the left proximal phalanx. Utilizing 15-blade, the incision was now deepened down to the level of subcutaneous tissue being careful to identify and retract all vital neurovascular structures and to cauterize all vessels as needed. At this time, the extensor tendon was identified and it was retracted laterally and a dorsal linear capsulotomy was performed to the point where the 5th metatarsophalangeal joint was brought into the open field. The periosteal tissue was reflected at this point to expose the prominent medial base of the proximal phalanx. Utilizing an oscillating bone saw, the prominence was now resected and was passed off the operative field and the bone was now smoothed to smooth contour utilizing a reciprocating rasp as well as a hand-held rasp. The area was felt that at this time was noted to be nice and smooth with no prominence identified. The mini C-arm was also utilized to evaluate at this point and resection was noted to be excellent at this point. The area was then irrigated with copious amounts of normal saline. After complete irrigation, attention now directed to the proximal interphalangeal joint. A transverse tenotomy and capsulotomy were performed to the point where the head of the was brought into the open field. The collaterals were resected both medially and laterally. The extensor tendon was now reflected proximally. The head of the proximal phalanx was exposed at this point and this was resected utilizing an oscillating bone saw. The stump of the bone was smoothed to a smooth contour with a joseph. The mini C-arm was utilized to evaluate and at this time, the resection was excellent. Deformity has been corrected. The wound was irrigated with copious amounts of normal saline. After complete irrigation, the mini C-arm was the utilized to elevate at this time. The deformities had been corrected with good correction. The deep tissue was then reapproximated and the capsule was reapproximated with 3-0 Vicryl in a simple interrupted stitch and the tendon was reapproximated with 4-0 Vicryl in a simple interrupted stitch and the subcutaneous tissue was reapproximated with 4-0 Vicryl in a simple interrupted stitch. The skin was reapproximated with 4-0 nylon in a simple interrupted stitch. The mini C-arm was utilized to evaluate the deformities have been corrected and at this point, a Betadine-soaked Adaptic and gauze were applied to the left 5th toe along with a dry sterile compressive dressing. The tourniquet was released and cap refill time was noted to all digits to 1 through 5 of the left foot. The patient did tolerate the procedure well, left the OR to the recovery room with vital signs stable and neurovascular status back to preoperative condition. The patient will be placed in a postoperative shoe will be weightbear as tolerated and will follow up with me in my office on Wednesday. KARINA Cespedes/MODGamaliel /[id number]
== END | disposition home or self-care (01) ==
LOC: OR 13:15
PROVIDERS: ATTEND Podiatrist
DX: M20.42 Other hammer toe(s) (acquired), left foot (principal); M89.372 Hypertrophy of bone, left ankle and foot; M25.775 Osteophyte, left foot; I10 Essential (primary) hypertension; Z88.6 Allergy status to analgesic agent; Z88.0 Allergy status to penicillin; Z01.810 Encounter for preprocedural cardiovascular examination; Z01.812 Encounter for preprocedural laboratory examination
CPT/HCPCS: 28285; 36415; 80048; 81025; 93005; J0131; J1100; J1885; J2001 ×2; J2250; J2405; J2704; J3010